=== PATIENT | female | born 1935 | race Caucasian/White ===

== ENCOUNTER → 2019-11-27 13:10 | Outpatient (BNVA) | payer MEDICARE, OTHER, SELFPAY | PROVIDERS: Family Provider Internal Medicine; PCP Internal Medicine; Visit Provider Anesthesiology | DX: G89.29 Other chronic pain (principal); M47.817 Spondylosis without myelopathy or radiculopathy, lumbosacral region; M47.816 Spondylosis without myelopathy or radiculopathy, lumbar region; M51.16 Intervertebral disc disorders with radiculopathy, lumbar region; M43.16 Spondylolisthesis, lumbar region; M96.1 Postlaminectomy syndrome, not elsewhere classified; M25.552 Pain in left hip; M25.551 Pain in right hip; M15.9 Polyosteoarthritis, unspecified; Z79.891 Long term (current) use of opiate analgesic | CPT/HCPCS: 99214 ==

== ENCOUNTER 2020-03-26 10:53 | Outpatient (CLI) | payer MEDICARE, OTHER, SELFPAY ==
[2020-03-26 11:00] VITALS: BP 133/71; PULSE 69; RESP 16; TEMP 36.8; O2SAT 97
[2020-03-26] MEDS: denosumab 60 mg SDV SUBCUT (11:14)
[2020-03-26 11:40] VITALS: BP 158/75; PULSE 62; RESP 16; TEMP 36.8; O2SAT 98
== END 2020-03-26 10:54 | disposition home or self-care (01) ==
LOC: RHEOACUTE 10:54
PROVIDERS: Family Provider Internal Medicine; PCP Internal Medicine; Visit Provider Internal Medicine Rheumatology
DX: M81.0 Age-related osteoporosis without current pathological fracture (principal)
CPT/HCPCS: 96372; J0897

== ENCOUNTER → 2020-04-14 09:54 | Outpatient (BNVA) | payer MEDICARE, OTHER, SELFPAY | PROVIDERS: Family Provider Internal Medicine; PCP Internal Medicine; Visit Provider Internal Medicine Cardiovascular Disease | DX: E78.5 Hyperlipidemia, unspecified (principal) | CPT/HCPCS: 80061; 80076 ==

== ENCOUNTER 2020-05-08 09:59 | Outpatient (CLI) | payer MEDICARE, OTHER, SELFPAY ==
--- NOTE | 2020-05-08 10:06 | USCV_ITS ---
Alannah Dodie Age: 84 Gender: F : 1935 Exam Date: 05/08/2020 10:55 Ordering Phys: Katya Munoz MD ([email or web address]) Technologist: Carmella Miramontes Exam Location: [facility] Indication: TR BP: 108 / 73 HR: 63 Rhythm: Other Technical Quality: Good MEASUREMENTS (Male / Female) Normal Values 2D ECHO LV Diastolic Diameter PLAX 4.0 cm 4.2 - 5.9 / 3.9 - 5.3 cm LV Systolic Diameter PLAX 2.2 cm LV Chamber Size 4.2 cm IVS Diastolic Thickness 1.1 cm 0.6 - 1.0 / 0.6 - 0.9 cm IVS Systolic Thickness 1.2 cm LVPW Diastolic Thickness 0.7 cm 0.6 - 1.0 / 0.6 - 0.9 cm LVPW Systolic Thickness 1.0 cm RV Chamber Size 3.3 cm LVOT Diameter 2.0 cm LV Ejection Fraction 2D Teich 77.7 % LV Ejection Fraction MOD 2C 68.7 % LV Ejection Fraction 2C AL 70.5 % LA Diameter 3.4 cm LA Width 3.7 cm LA Height 5.1 cm RA Width 2.6 cm RA Height 4.7 cm Aorta at Sinotubular Diameter 3.0 cm M-MODE LV Diastolic Diameter MM 5.5 cm 4.2 - 5.9 / 3.9 - 5.3 cm LV Systolic Diameter MM 3.5 cm LV Ejection Fraction MM Teich 66.9 % IVS Diastolic Thickness MM 0.9 cm 0.6 - 1.0 / 0.6 - 0.9 cm IVS Systolic Thickness MM 1.0 cm LVPW Diastolic Thickness MM 0.6 cm 0.6 - 1.0 / 0.6 - 0.9 cm LVPW Systolic Thickness MM 1.3 cm Aortic Annulus Diameter 3.3 cm LA Ao Ratio MM 1.0 MV E Point Septal Separation 0.3 cm DOPPLER AV Peak Velocity 105.0 cm/s LVOT Peak Velocity 94.0 cm/s AV Area Cont Eq vti 2.6 cm squared AV Area Cont Eq pk 2.8 cm squared MV Area PHT 5.0 cm squared Mitral E to A Ratio 2.1 MV E' Velocity 11.0 cm/s Mitral E to MV E' Ratio 12.3 Mitral E to LV E' Lateral Ratio 10.7 Mitral E to LV E' Septal Ratio 14.5 TR Peak Velocity 287.8 cm/s TR Peak Gradient 33.1 mmHg TR Mean Velocity 205.4 cm/s TR Mean Gradient 19.2 mmHg TR Velocity Time Integral 109.6 cm TV Peak E Velocity 59.0 cm/s Right Atrial Pressure 15.0 mmHg Pulmonary Artery Systolic Pressu 48.1 mmHg PV Peak Velocity 60.0 cm/s FINDINGS Left Ventricle Normal left ventricular size and systolic function, EF 65 %. No regional wall motion abnormalities. Grade III/IV diastolic dysfunction (restrictive filling pattern), severely elevated filling pressures. Right Ventricle The right ventricle is normal in size and function. Right Atrium Mildly increased right atrial size. Left Atrium Mildly increased left atrial size. The interatrial septum was found to be bulging to the right. Mitral Valve Thickened mitral valve. Mild-moderate mitral valve regurgitation. Multiple regurgitant jets Aortic Valve Thickened aortic valve.[id number] aortic valve regurgitation. Tricuspid Valve Possibly severe tricuspid regurgitation Pulmonic Valve No gross abnormalities noted. Moderately severe pulmonic valve regurgitation Pericardium Normal pericardium without effusion. Aorta Aortic root was found to be upper limit of normal size. CONCLUSIONS Normal left ventricular size and systolic function, EF 65 %. No regional wall motion abnormalities. Grade III/IV diastolic dysfunction (restrictive filling pattern), severely elevated filling pressures. Mild biatrial enlargement ThiThe interatrial septum was found to be bulging to the right. ckened mitral valve. Mild-moderate mitral valve regurgitation. Thickened aortic valve.[id number] aortic valve regurgitation. Possibly severe tricuspid regurgitation There is no pericardial effusion. Moderately severe pulmonic valve regurgitation There are no intracardiac masses. Interatrial septum, bulging to the right Estimated pulmonary artery peak systolic pressure of 41 mmHg Compared to the previous study from 10/29/2018, there may not be a significant change Dr Katya Munoz MD [facility] (Electronically Signed) Final Date: 08 May 2020 17:30 S
== END 2020-05-08 10:00 | disposition home or self-care (01) ==
LOC: US 10:00
PROVIDERS: Family Provider Internal Medicine; PCP Internal Medicine; Visit Provider Internal Medicine Cardiovascular Disease
DX: I08.2 Rheumatic disorders of both aortic and tricuspid valves (principal)
CPT/HCPCS: 93306

== ENCOUNTER → 2020-05-15 09:36 | Outpatient (BNVA) | payer MEDICARE, OTHER, SELFPAY | PROVIDERS: Family Provider Internal Medicine; PCP Internal Medicine; Visit Provider Anesthesiology | DX: G89.29 Other chronic pain (principal); M51.16 Intervertebral disc disorders with radiculopathy, lumbar region; M47.816 Spondylosis without myelopathy or radiculopathy, lumbar region; M43.16 Spondylolisthesis, lumbar region; M47.817 Spondylosis without myelopathy or radiculopathy, lumbosacral region; M54.9 Dorsalgia, unspecified; M96.1 Postlaminectomy syndrome, not elsewhere classified; M15.9 Polyosteoarthritis, unspecified; Z79.891 Long term (current) use of opiate analgesic | CPT/HCPCS: 99213; 99214 ==

== ENCOUNTER → 2020-07-14 10:02 | Outpatient (BNVA) | payer MEDICARE, OTHER, SELFPAY | PROVIDERS: Family Provider Internal Medicine; PCP Internal Medicine; Visit Provider Anesthesiology | DX: G89.29 Other chronic pain (principal); M51.16 Intervertebral disc disorders with radiculopathy, lumbar region; M47.816 Spondylosis without myelopathy or radiculopathy, lumbar region; M47.817 Spondylosis without myelopathy or radiculopathy, lumbosacral region; M54.9 Dorsalgia, unspecified; M96.1 Postlaminectomy syndrome, not elsewhere classified; Z79.891 Long term (current) use of opiate analgesic | CPT/HCPCS: 99213; 99214 ==

== ENCOUNTER → 2020-09-23 08:20 | Outpatient (BNVA) | payer MEDICARE, OTHER, SELFPAY | PROVIDERS: Family Provider Internal Medicine; PCP Internal Medicine; Visit Provider Anesthesiology | DX: G89.29 Other chronic pain (principal); M47.816 Spondylosis without myelopathy or radiculopathy, lumbar region; M43.16 Spondylolisthesis, lumbar region; M51.16 Intervertebral disc disorders with radiculopathy, lumbar region; M47.817 Spondylosis without myelopathy or radiculopathy, lumbosacral region; M54.9 Dorsalgia, unspecified; M96.1 Postlaminectomy syndrome, not elsewhere classified; Z79.891 Long term (current) use of opiate analgesic | CPT/HCPCS: 99213; 99214 ==

== ENCOUNTER 2020-11-26 14:28 | Outpatient (CLI) | payer MEDICARE, OTHER, SELFPAY ==
--- NOTE | 2020-11-26 14:36 | XR_ITS ---
WS: [id number] SCREENING DEXA SCAN [employer] CLINICAL INFORMATION: OSTEOPEROSIS COMPARISON: 018 FINDINGS: Left forearm bone mineral density 0.58 with a T score of -3.3 and a Z score of -0.26 Left femoral neck bone mineral density measures 0.788 g/cm2. This corresponds to a T score of -1.7 an d Z score of 0.8. Right femoral neck bone mineral density measures 0.801 g/cm2. This corresponds to a T score -1.6of an d Z score of 0.9. Mean femoral neck bone mineral density measures 0.794 g/cm2. This corresponds to a T score of -1.7 an d Z score of 0.9. XR/XR DEXA axial skeleton* 58610 IMPRESSION: Osteoporosis Patient's FRAX calculated 10 year probability for major osteoporotic fracture i s 32.3 % and osteoporotic hip fracture is 20.0%.
== END 2020-11-26 14:29 | disposition home or self-care (01) ==
LOC: RADWPI 14:30
PROVIDERS: PCP Internal Medicine; Visit Provider Internal Medicine
DX: M81.0 Age-related osteoporosis without current pathological fracture (principal)
CPT/HCPCS: 77080

== ENCOUNTER → 2020-12-01 09:22 | Outpatient (BNVA) | payer MEDICARE, OTHER, SELFPAY | PROVIDERS: PCP Internal Medicine; Visit Provider Nurse Practitioner | DX: G89.29 Other chronic pain (principal); M51.16 Intervertebral disc disorders with radiculopathy, lumbar region; M47.817 Spondylosis without myelopathy or radiculopathy, lumbosacral region; M54.9 Dorsalgia, unspecified; M15.9 Polyosteoarthritis, unspecified; M79.601 Pain in right arm; M79.602 Pain in left arm; Z79.891 Long term (current) use of opiate analgesic | CPT/HCPCS: 99213 ==

== ENCOUNTER → 2020-12-15 14:22 | Outpatient (BNVA) | payer MEDICARE, OTHER, SELFPAY | PROVIDERS: PCP Internal Medicine; Visit Provider Anesthesiology Pain Medicine | DX: G89.29 Other chronic pain (principal); M47.816 Spondylosis without myelopathy or radiculopathy, lumbar region; M47.817 Spondylosis without myelopathy or radiculopathy, lumbosacral region; M54.9 Dorsalgia, unspecified | CPT/HCPCS: 64493; 64494; 64495; J1030; J3490 ==

== ENCOUNTER → 2020-12-29 10:24 | Outpatient (BNVA) | payer MEDICARE, OTHER, SELFPAY | PROVIDERS: PCP Internal Medicine; Visit Provider Anesthesiology | DX: G89.29 Other chronic pain (principal); M47.816 Spondylosis without myelopathy or radiculopathy, lumbar region; M54.9 Dorsalgia, unspecified; M43.16 Spondylolisthesis, lumbar region; M51.16 Intervertebral disc disorders with radiculopathy, lumbar region; M96.1 Postlaminectomy syndrome, not elsewhere classified; M47.817 Spondylosis without myelopathy or radiculopathy, lumbosacral region; Z79.891 Long term (current) use of opiate analgesic; Z79.899 Other long term (current) drug therapy | CPT/HCPCS: 99214 ==

== ENCOUNTER → 2021-01-06 13:30 | Outpatient (BNVA) | payer MEDICARE, OTHER, SELFPAY | PROVIDERS: PCP Internal Medicine; Visit Provider Anesthesiology Pain Medicine | DX: G89.29 Other chronic pain (principal); M47.816 Spondylosis without myelopathy or radiculopathy, lumbar region; M54.9 Dorsalgia, unspecified | CPT/HCPCS: 64635; 64636; J1030 ==

== ENCOUNTER → 2021-01-18 10:10 | Outpatient (BNVA) | payer MEDICARE, OTHER, SELFPAY | PROVIDERS: PCP Internal Medicine; Visit Provider Anesthesiology Pain Medicine | DX: G89.29 Other chronic pain (principal); M54.9 Dorsalgia, unspecified; M54.42 Lumbago with sciatica, left side | CPT/HCPCS: 99213 ==

== ENCOUNTER → 2021-02-03 09:15 | Outpatient (BNVA) | payer MEDICARE, OTHER, SELFPAY | PROVIDERS: PCP Internal Medicine; Visit Provider Internal Medicine Cardiovascular Disease | DX: E78.5 Hyperlipidemia, unspecified (principal); R60.9 Edema, unspecified | CPT/HCPCS: 80048; 83880; 85025 ==

== ENCOUNTER → 2021-02-24 10:53 | Outpatient (BNVA) | payer MEDICARE, OTHER, SELFPAY | PROVIDERS: PCP Internal Medicine; Visit Provider Anesthesiology | DX: G89.29 Other chronic pain (principal); M51.16 Intervertebral disc disorders with radiculopathy, lumbar region; M54.9 Dorsalgia, unspecified; M47.816 Spondylosis without myelopathy or radiculopathy, lumbar region; M47.817 Spondylosis without myelopathy or radiculopathy, lumbosacral region; M43.16 Spondylolisthesis, lumbar region; M96.1 Postlaminectomy syndrome, not elsewhere classified; M15.9 Polyosteoarthritis, unspecified; Z79.899 Other long term (current) drug therapy; Z79.891 Long term (current) use of opiate analgesic | CPT/HCPCS: 99213; 99214 ==

== ENCOUNTER 2021-03-19 08:10 | Outpatient (CLI) | payer MEDICARE, OTHER, SELFPAY ==
[2021-03-19 08:17] VITALS: BMI 20.9
--- NOTE | 2021-03-19 08:28 | NMCV_ITS ---
NM elda perf SPECT r/s* [id number] Dodie Jaffe Age: 85 Gender: F : 1935 Exam Date: 03/19/2021 09:13 Ordering Phys: Katya Munoz MD ([email or web address]) Technologist: LO Pond Exam Location: [facility] Indications: CHEST PAIN STRESS TEST [facility] IMAGE PROTOCOL Rest/Stress 1 Lexiscan Day Radiopharmaceutical Dose (mCi) Administration Site Administered by Rest: Tc-99m 10.7 IV LO Pond Sestamibi Stress:Tc-99m 32.6 IV LO Tate Sestamibi Rest: 19-Mar-2021 60 Discovery 630 Stress: 19-Mar-2021 30 Discovery 630 0.4mg Lexiscan. Supine position only as patient was unable to lay prone. SPECT RESULTS Technical Quality: Good Raw Data Analysis: Normal Image Corrections: Patient motion artifact - motion correction applied to stress images. Summed Stress Score: 0 Summed Rest Score: 0 Summed Difference Score: 0 PERFUSION FINDINGS Uniform myocardial tracer uptake FUNCTIONAL RESULTS (calculated via Gated SPECT) Stress Image LV EF (%): 83 Stress EDV (mL):54 TID: 1.04 Stress ESV (mL):9 FUNCTIONAL FINDINGS: Segmental wall motion analysis revealing no gross wall motion abnormal arteries. IMPRESSIONS 1. Unremarkable myocardial perfusion imaging 2. LV ejection fraction estimated to be 83% 3. LV wall motion analysis revealing no gross wall motion abnormalities. 4. Normal LV volume. No significant coronary ischemia, based on the above findings Dr Katya Munoz MD [facility] (Electronically Signed) Final Date: 22 Mar 2021 11:49 S
--- NOTE | 2021-03-19 08:28 | ECG_ITS ---
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 Interpretive Statements NAME OF STUDY: LEXISCAN SESTAMIBI STRESS TEST INDICATION: Chest Pain, PROCEDURE: At the baseline, the EKG revealed normal sinus rhythm with right bundle branch block. Possible left atrial enlargement. Some nonspecific T wave changes.. The baseline blood pressure was 186/89 mm Hg with a heart rate of 74 beats/min. Lexiscan was infused over a period of 20 seconds. A total of 0.4 milligrams of Lexiscan was infused. The stress phase was continued for a total of 5 minutes. Heart rate at the end of the stress phase was 91 with a blood pressure 146/61. The EKG at the peak infusion revealed no significant changes .occasional PVCs were noted during the infusion. Sestamibi was injected 20 seconds after the Lexiscan infusion. Blood pressure at the end of the recovery phase was 166/68 with a heart rate of 93 per minute. CONCLUSION: 1. No significant EKG changes with the LexiScan infusion 2. No LexiScan induced chest pain or cardiac arrhythmia 3. Normal blood pressure and heart rate response 4. Sestamibi/sestamibi perfusion scan pending; see separate report. Electronically Signed On 03-25-2021 20:16:41 CDT by Katya Munoz M.D. [id number]
[2021-03-19 10:47] VITALS: BP 135/65; PULSE 94
--- NOTE | 2021-03-19 10:48 | PC.NURSE ---
pt had late reaction to lexiscan, approx 10 min into recovery she began to be vomit, shake and become even more weak than previous to test. let pt relax in bed and continue to recover. pt was shaking so much bp could not take and manual was completed to finish test. nm came and got pt and wrapped her in warm blankets.
[2021-03-19] MEDS: regadenoson 0.4 Mg/5 ml Syringe IVP (10:51)
== END 2021-03-19 08:11 | disposition home or self-care (01) ==
LOC: CDL 08:13
PROVIDERS: PCP Internal Medicine; Visit Provider Internal Medicine Cardiovascular Disease
DX: R07.9 Chest pain, unspecified (principal)
CPT/HCPCS: 78452; 93017; A9500; J2785

== ENCOUNTER → 2021-05-07 10:46 | Outpatient (BNVA) | payer MEDICARE, OTHER, SELFPAY | PROVIDERS: PCP Internal Medicine; Visit Provider Anesthesiology | DX: G89.29 Other chronic pain (principal); M51.16 Intervertebral disc disorders with radiculopathy, lumbar region; M47.816 Spondylosis without myelopathy or radiculopathy, lumbar region; M43.16 Spondylolisthesis, lumbar region; M47.817 Spondylosis without myelopathy or radiculopathy, lumbosacral region; M96.1 Postlaminectomy syndrome, not elsewhere classified; Z87.891 Personal history of nicotine dependence; Z79.891 Long term (current) use of opiate analgesic | CPT/HCPCS: 99213 ==

== ENCOUNTER 2021-07-06 15:03 | Outpatient (CLI) | payer MEDICARE, OTHER, SELFPAY ==
[2021-07-06 16:46] LABS: Albumin Level 4.3 g/dL (3.5-5.2); Calcium 9.1 mg/dL (8.5-10.5)
[2021-07-06 17:34] LABS: 25 Hydroxy Vitamin D 83 ng/mL (30-100)
== END 2021-07-06 15:04 | disposition home or self-care (01) ==
LOC: ONCMED 15:12
PROVIDERS: Family Medicine; PCP Internal Medicine; Referring Provider Internal Medicine; Visit Provider Internal Medicine
DX: E78.5 Hyperlipidemia, unspecified (principal); I10 Essential (primary) hypertension; I49.9 Cardiac arrhythmia, unspecified; M47.816 Spondylosis without myelopathy or radiculopathy, lumbar region; Z79.899 Other long term (current) drug therapy; Z79.891 Long term (current) use of opiate analgesic
CPT/HCPCS: 36415; 82040; 82306; 82310; 82565

== ENCOUNTER 2021-07-13 06:42 | Outpatient (CLI) | payer MEDICARE, OTHER, SELFPAY ==
[2021-07-13 15:32] VITALS: BP 154/79; PULSE 69; RESP 18; TEMP 36.1; O2SAT 99
[2021-07-13] MEDS: denosumab 60 mg SDV SUBCUT (15:49)
[2021-07-13 16:39] LABS: Anion Gap 13.4 (5-19); Blood Urea Nitrogen 13 mg/dL (8-23); Calcium 9.6 mg/dL (8.5-10.5); Carbon Dioxide 30 mmol/L (22-29); Chloride 97 mmol/L (98-107); Glucose 110 mg/dL (65-115); Osmolality Calculated 285 mOsm/kg (285-295); Potassium 3.4 mmol/L (3.5-5.1); Sodium 137 mmol/L (136-145)
[2021-07-13 16:57] VITALS: BP 154/78; PULSE 59; RESP 18; TEMP 36.4; O2SAT 96
== END 2021-07-13 06:43 | disposition home or self-care (01) ==
LOC: ONCMED 06:43
PROVIDERS: PCP Internal Medicine; Referring Provider Internal Medicine; Visit Provider Internal Medicine
DX: M81.0 Age-related osteoporosis without current pathological fracture (principal)
CPT/HCPCS: 36415; 80048; 96372; J0897

== ENCOUNTER → 2021-07-16 10:40 | Outpatient (BNVA) | payer MEDICARE, OTHER, SELFPAY | PROVIDERS: PCP Internal Medicine; Visit Provider Anesthesiology | DX: G89.29 Other chronic pain (principal); M96.1 Postlaminectomy syndrome, not elsewhere classified; M47.816 Spondylosis without myelopathy or radiculopathy, lumbar region; M43.16 Spondylolisthesis, lumbar region; M51.16 Intervertebral disc disorders with radiculopathy, lumbar region; M15.9 Polyosteoarthritis, unspecified; M47.817 Spondylosis without myelopathy or radiculopathy, lumbosacral region; Z79.891 Long term (current) use of opiate analgesic | CPT/HCPCS: 99213 ==

== ENCOUNTER → 2021-09-22 10:47 | Outpatient (BNVA) | payer MEDICARE, OTHER, SELFPAY | PROVIDERS: PCP Internal Medicine; Visit Provider Anesthesiology | DX: G89.29 Other chronic pain (principal); M47.816 Spondylosis without myelopathy or radiculopathy, lumbar region; M43.16 Spondylolisthesis, lumbar region; M51.16 Intervertebral disc disorders with radiculopathy, lumbar region; M47.817 Spondylosis without myelopathy or radiculopathy, lumbosacral region; M96.1 Postlaminectomy syndrome, not elsewhere classified; M15.9 Polyosteoarthritis, unspecified; Z79.891 Long term (current) use of opiate analgesic; Z79.899 Other long term (current) drug therapy; Z87.891 Personal history of nicotine dependence | CPT/HCPCS: 99214 ==

== ENCOUNTER → 2021-11-30 09:45 | Outpatient (BNVA) | payer MEDICARE, OTHER, SELFPAY | PROVIDERS: PCP Internal Medicine; Visit Provider Anesthesiology | DX: G89.29 Other chronic pain (principal); M54.50 Low back pain, unspecified; M96.1 Postlaminectomy syndrome, not elsewhere classified; Z79.891 Long term (current) use of opiate analgesic; Z87.891 Personal history of nicotine dependence | CPT/HCPCS: 99213 ==

== ENCOUNTER → 2021-12-30 10:44 | Outpatient (BNVA) | payer MEDICARE, OTHER, SELFPAY | PROVIDERS: PCP Internal Medicine; Visit Provider Internal Medicine Cardiovascular Disease | DX: I77.810 Thoracic aortic ectasia (principal); I10 Essential (primary) hypertension; I49.9 Cardiac arrhythmia, unspecified; E78.5 Hyperlipidemia, unspecified; I36.1 Nonrheumatic tricuspid (valve) insufficiency; Z87.891 Personal history of nicotine dependence | CPT/HCPCS: 99214 ==

== ENCOUNTER 2022-01-18 11:30 | Emergency (ER) | payer MEDICARE, OTHER, SELFPAY ==
[2022-01-18 11:44] VITALS: BP 207/78; PULSE 58; RESP 16; TEMP 36.7; O2SAT 94; BMI 20.5
[2022-01-18 12:15] VITALS: BP 207/68; PULSE 58; RESP 16; O2SAT 94
[2022-01-18 12:40] VITALS: BP 171/72; PULSE 60; RESP 18; O2SAT 96
--- NOTE | 2022-01-18 12:43 | ED_ITS ---
HPI - Weakness General: Chief complaint: Weakness Stated complaint: sent by [facility]; SOB/weakness/confusion; issues speakin Time Seen by Provider: 01/18/22 12:43 Source: patient Mode of arrival: ambulatory Limitations: no limitations History of Present Illness: 86-year-old female presents emergency room with complaints of dysarthria and elevated blood pressure. Dysarthria has been present for quite some time and noticeably worse 48 hours ago. Difficulty with word finding and completing words. She denies any difficulty with vision speech swallowing or gait and balance. She denies dysuria urgency frequency no chest pain no abdominal pain. Blood pressure has been elevated she has recently started on hydralazine by Dr. CORDON Complaint: generalized weakness Onset (ago): minute(s) Duration: constant Location: generalized Severity: mild Relieving factors: none Exacerbating factors: none Associated symptoms: Reports other; Denies chest pain, chills, confusion, melena, decreased appetite, diaphoresis, dysuria, easy bruising, fever(s), headache(s), myalgias, nausea, rash, short of breath, syncope or vomiting Review of Systems Const: Denies: fever(s), chills or diaphoresis Card: Denies: chest pain or syncope GI: Denies: nausea, vomiting or melena : Denies: dysuria Neuro: Denies: headache(s) or confusion Thiago/Lymph: Denies: easy bruising [facility] PFSH: Medical History (Updated 01/18/22 @ 15:52 by Anthony Balderas DO) Arthritis of facet joint of lumbar spine Benign essential HTN Chronic back pain greater than 3 months duration Displacement of lumbar disc with radiculopathy Dyslipidemia (high LDL; low HDL) Encounter for long-term opiate analgesic use Generalized osteoarthritis of multiple sites Long-term use of high-risk medication Opioid contract exists Post laminectomy syndrome Spondylolisthesis, lumbar region Spondylosis of lumbosacral spine without myelopathy Thoracic aortic aneurysm Tricuspid regurgitation Ventricular arrhythmia Surgical History History of lumbar laminectomy for spinal cord decompression 1967- [facility] [place] [place] S/P bladder repair S/P bunionectomy S/P hysterectomy S/P lumpectomy of breast S/P repair of vertebral fracture 08/2019- [facility] T12 Status post lumbar surgery 01/14/09- [facility]IFF Family History Father Congestive heart disease CAD (coronary artery disease) Sister No problems noted. Mother CAD (coronary artery disease) Diabetes Dementia Family/Other Diabetes Other Heart disease Hyperlipidemia Hypertension Denies family history of Clotting disorder Chronic kidney disease (CKD) Suicide Anesthesia complication Bleeding disorder Lung disease Cancer Stroke Social History Smoking and tobacco status: former smoker Second hand smoke exposure: No Alcohol intake: never History of recent travel: No Physical Exam Const: GENERAL APPEARANCE: cooperative and comfortable ORIENTATION/CONSCIOUSNESS: Yes awake, Yes oriented to person, Yes oriented to place and Yes oriented to time HENMT: COMMON NORMALS: normocephalic, atraumatic and hearing grossly normal bilaterally HEAD & SCALP: normocephalic and atraumatic Neck/C-Spine: COMMON NORMALS: no JVD Resp: COMMON NORMALS: normal respiratory effort, No retractions, No use of accessory muscles and clear to auscultation bilaterally AUSCULTATION: clear to auscultation bilaterally Cardio: COMMON NORMALS: no JVD, regular rate, regular rhythm and No murmurs present (Cardio) RATE: regular rate RHYTHM: regular rhythm GI: COMMON NORMALS: Soft to palpation and No hepatosplenomegaly present AUSCULTATION: Yes normoactive bowel sounds PALPATION: Yes Soft to palpation, No Tenderness to palpation present (GI), No Guarding due to palpation present ( GI) and Yes No hepatosplenomegaly present Extremity: COMMON NORMALS: normal to inspection, capillary refill normal, no clubbing, cyanosis or edema, no calf tenderness and no pedal edema Neuro: SENSORIUM/ORIENTATION: Yes oriented to person, Yes oriented to place and Yes oriented to time Skin: COMMON NORMALS: no rashes or lesions noted GENERAL SKIN EXAM: no rashes or lesions noted Course Vital Signs: Vital signs: Vital Signs Temperature 98.1 F 01/18/22 11:44 Pulse Rate 66 01/18/22 15:59 Respiratory Rate 18 01/18/22 15:59 Blood Pressure 157/66 01/18/22 15:59 Pulse Oximetry 96 01/18/22 15:59 MDM - Weakness Medical Decision Making Mild dysarthria with a stroke score of 1 CT head negative is really not with her blood also do she is already on pravastatin and high dose as well as starting clopidogrel Medical Records I reviewed the patient's medical records. Lab Data I reviewed the patient's lab results. : 01/18/22 13:14 01/18/22 14:35 Radiology Impressions Chest X-Ray 01/18/22 12:53 IMPRESSION: 1. Pulmonary hyperinflation that might indicate obstructive lung disease. No acute process. Head CT 01/18/22 13:02 IMPRESSION: 1. Significant progression of small vessel ischemic disease noted bilaterally since 2017. 2. No acute hemorrhage or infarct. Laboratory Results WBC 5.6 10^3/uL (4.0-10.0) 01/18/22 13:14 RBC 3.59 10^6/uL (4.1-5.3) L 01/18/22 13:14 Hgb 11.8 g/dL (11.5-15.3) 01/18/22 13:14 Hct 38.7 % (37.0-47.0) 01/18/22 13:14 MCV 107.8 fl (81-99) H 01/18/22 13:14 MCH 32.9 pg (28.0-34.0) 01/18/22 13:14 MCHC 30.5 g/dL (30.0-36.0) 01/18/22 13:14 RDW 16.8 % (12.1-15.1) H 01/18/22 13:14 Plt Count 151 10^3/cmm (130-400) 01/18/22 13:14 MPV 10.8 fL (7.4-10.4) H 01/18/22 13:14 Neut % (Auto) 59.0 % 01/18/22 13:14 Lymph % (Auto) 30.1 % 01/18/22 13:14 [place] % (Auto) 8.5 % 01/18/22 13:14 Eos % (Auto) 1.8 % 01/18/22 13:14 Baso % (Auto) 0.4 % 01/18/22 13:14 Neut # (Auto) 3.32 10^3/uL (1.8-7.7) 01/18/22 13:14 Lymph # (Auto) 1.7 10^3/uL (0.8-4.8) 01/18/22 13:14 [place] # (Auto) 0.5 10^3/uL (0.2-0.9) 01/18/22 13:14 Eos # (Auto) 0.1 10^3/uL (0.0-0.8) 01/18/22 13:14 Baso # (Auto) 0.0 10^3/uL (0.0-0.1) 01/18/22 13:14 Nucleated RBC % (auto) 0 % 01/18/22 13:14 Nucleated RBCs # 0.0 /100WBC 01/18/22 13:14 Sodium 135 mmol/L (136-145) L 01/18/22 14:35 Potassium 3.7 mmol/L (3.5-5.1) 01/18/22 14:35 Chloride 101 mmol/L (98-107) 01/18/22 14:35 Carbon Dioxide 25 mmol/L (22-29) 01/18/22 14:35 Anion Gap 12.7 (5-19) 01/18/22 14:35 BUN 15 mg/dL (8-23) 01/18/22 14:35 Creatinine 0.5 mg/dL (0.5-0.9) 01/18/22 14:35 GFR Calculation Not Reportable 01/18/22 14:35 Glucose 97 mg/dL (65-115) 01/18/22 14:35 Calculated Osmolality 281 mOsm/kg (285-295) L 01/18/22 14:35 Calcium 10.0 mg/dL (8.5-10.5) 01/18/22 14:35 Total Bilirubin 0.5 mg/dL (0.15-1.2) 01/18/22 14:35 AST 17 U/L (0-32) 01/18/22 14:35 ALT 12 U/L (0-33) 01/18/22 14:35 Alkaline Phosphatase 33 IU/L (35-105) L 01/18/22 14:35 Troponin T Baseline 23 ng/L (0-10) H 01/18/22 14:35 Total Protein 7.1 g/dL (6.6-8.7) 01/18/22 14:35 Albumin 3.9 g/dL (3.5-5.2) 01/18/22 14:35 Globulin 3.2 g/dL (1.3-4.6) 01/18/22 14:35 Urine Color Yellow (Yellow) 01/18/22 12:20 Urine Appearance Hazy (CLEAR) A 01/18/22 12:20 Urine pH 7 (5-7) 01/18/22 12:20 Ur Specific [place] 1.005 (1.005-1.030) 01/18/22 12:20 Urine Protein Neg (Negative) 01/18/22 12:20 Urine Glucose (UA) Norm (Normal) 01/18/22 12:20 Urine Ketones Negative (Negative) 01/18/22 12:20 Urine Blood Neg (Negative) 01/18/22 12:20 Urine Nitrate Negative (Negative) 01/18/22 12:20 Urine Bilirubin Neg (Negative) 01/18/22 12:20 Urine Urobilinogen Neg mg/dL (Negative) 01/18/22 12:20 Ur Leukocyte Esterase Negative (Negative) 01/18/22 12:20 Urine RBC Rare /hpf (0-2) 01/18/22 12:20 Urine WBC 5-10 /hpf (0-5) H 01/18/22 12:20 Ur Squamous Epith Cells Rare /hpf (0-5) 01/18/22 12:20 Amorphous Sediment Not Reportable 01/18/22 12:20 Urine Bacteria 4+ /hpf (NONE) H 01/18/22 12:20 Discharge Plan Discharge Patient Disposition: Home Clinical Impression: Acute CVA (cerebrovascular accident), Cystitis, HTN (hypertension) Condition: Stable Prescriptions: New Macrobid 100 mg capsule 100 mg PO BID 7 Days Qty: 14 0RF Rx Instructions: must administer with a meal/food amlodipine 2.5 mg tablet 2.5 mg PO DAILY Qty: 30 0RF No Action calcium carbonate-vitamin D3 [Calcium with Vitamin D] 600 mg(1,500mg) -400 unit tablet 1 tab PO .UNKNOWN OTC 0RF cholecalciferol (vitamin D3) 5,000 unit capsule 5,000 unit PO ONCE 0RF acetaminophen [Tylenol Arthritis Pain] 650 mg tablet extended release 650 mg PO Q8H 0RF gabapentin 800 mg tablet 800 mg PO TID 0RF polyethylene glycol 3350 [Miralax] 17 gram/dose powder 17 g PO DAILY PRN (Reason: constipation) 0RF nitroglycerin [Nitrostat] 0.4 mg tablet, sublingual 0.4 mg SUBLINGUAL Q5M PRN (Reason: chest pain) 30 Days Qty: 30 0RF magnesium L-lactate [Magtab] 84 mg tablet extended release 84 mg PO BID 30 Days Qty: 60 5RF carvedilol 25 mg tablet 25 mg PO BID 90 Days Qty: 180 3RF Rx Instructions: must administer with a meal/food pravastatin 80 mg tablet 80 mg PO DAILY Qty: 90 3RF morphine 15 mg tablet 15 mg PO TID PRN (Reason: pain) 30 Days Qty: 90 0RF Rx Instructions: fill on or after 01/05/22 duloxetine [Cymbalta] 20 mg capsule,delayed release(DR/EC) 20 mg PO DAILY 0RF valsartan 320 mg tablet 320 mg PO DAILY Qty: 90 3RF hydralazine 50 mg tablet 50 mg PO TID Qty: 270 3RF Discharge Orders: Discharge ED (Routine); Ordered 01/18/22 Ordered By: Anthony Balderas Referrals: Castro Hinson DO [Primary Care Provider] - Discharge Diet: Usual diet Discharge Activity: Resume usual activity Patient Instructions: Opioid Safety Activity Restrictions/Additional Instructions: Recheck blood pressure with your primary care doctor within the next week. Case management will call make arrangements for you to have an MRI of the brain. Coding Level of Care Code ED [employer]ant [employer] for [employer] Exam Comprehensive NIH stroke score NIHSS Level Of Consciousness - 1a: 0 Level Of Consciousness Questions - 1b: Both Correct Level Of Consciousness Commands - 1c: Both Correct Best Gaze - 2: Normal Visual Lobo - 3: No Visual Loss Facial Palsy - 4: Normal Motor Arm Right - 5: No Drift Motor Arm Left - 5: No Drift Motor Leg Right - 6: No Drift Motor Leg Left - 6: No Drift Limb Ataxia - 7: Absent Sensory - 8: Normal Best Language - 9: No Aphasia Dysarthia - 10: Mild/Moderate Dysarthia Extinction And Inattention - 11: 0 Score Total Score: 1
--- NOTE | 2022-01-18 12:53 | ECG_ITS ---
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 Measurements Intervals [place] Rate: 59 P: 76 IN: 247 QRS: -12 QRSD: 129 T: -24 QT: 403 QTc: 400 Interpretive Statements SINUS BRADYCARDIA WITH FIRST DEGREE AV BLOCK POSSIBLE RIGHT VENTRICULAR CONDUCTION DELAY [RSR (QR) IN V1/V2] MODERATE T-WAVE ABNORMALITY, CONSIDER ANTERIOR ISCHEMIA [-0.1+ mV T-WAVE IN V3/V4] Compared to ECG 05/13/2017 09:39:30 First degree AV block now present T-wave abnormality now present Possible ischemia now present Sinus tachycardia no longer present Ventricular premature complex(es) no longer present Right bundle-branch block no longer present Electronically Signed On 01-19-2022 16:58:48 CDT by Pritesh Ibanez M.D. [id number]
--- NOTE | 2022-01-18 12:53 | XR_ITS ---
WS: [id number] Exam: XR chest 1V portable [id number] Date/Time of Exam: 01/18/2022 12:59 PM Reason For Exam: dyspnea/cough Comparison 05/17/2014. The lungs are hyperinflated and clear. Heart size is within normal limits for portable technique. The mediastinal silhouette is unremarkable in appearance. No pleural effusion. Bony structures are intac t. 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 XR/XR chest 1V portable [id number] IMPRESSION: 1. Pulmonary hyperinflation that might indicate obstructive lung disease. No ac [place] process.
--- NOTE | 2022-01-18 13:02 | CT_ITS ---
WS: [id number] CT HEAD NONCONTRAST HISTORY: elevated BP, headache, dysarthria TECHNIQUE: Contiguous axial imaging performed through the brain in 2.5 mm imaging. Bone and soft tiss ue windows. Sagittal and coronal reformats reviewed. All CT scans at [facility] use at least one of these dose optimization techniques: automated exposure control; mA and/or kV adjustment per pa tient size (includes targeted exams where dose is matched to clinical indication); or iterative recon struction. DLP: 739.93 mGy.cm COMPARISON: 05/13/2017 No acute intracranial hemorrhage, midline shift or mass effect. Moderate atrophy and moderate to severe small vessel ischemic disease. Confluent ischemic disease wit h significant progression since 2017. No prior infarct. Ventricles: Normal size with no hydrocephalus. No inferior displacement of cerebellar tonsils. Paranasal sinuses: As visualized are clear. Mastoid air cells: Well pneumatized. Calvarium and scalp: Skull is intact with no soft tissue edema or swelling. Heavy calcification in the intracranial carotid arteries. CT/CT head wo con* [id number] IMPRESSION: 1. Significant progression of small vessel ischemic disease noted bilaterally since 2017. 2. No acute hemorrhage or infarct.
[2022-01-18 13:16] VITALS: BP 195/78; PULSE 62; RESP 18; O2SAT 96
[2022-01-18 13:24] LABS: Add Urine Culture? Yes; Add Urine Microscopic? YES; Bacteria Urine 4+ /hpf; Bilirubin Urine Neg (Negative); Blood Urine Neg (Negative); Glucose Urine UA Norm (Normal); Ketones Urine Negative (Negative); Leukocyte Esterase Urine Negative (Negative); Nitrate Urine Negative (Negative); Protein Urine Neg (Negative); RBC Urine RARE /hpf (0-2); Specific Gravity, Urine 1.005 (1.005-1.030); Squamous Epithelial Cell Urine RARE /hpf (0-5); Urine Appearance Hazy (CLEAR); Urine Color Yellow (Yellow); Urobilinogen Urine Neg (Negative); pH Urine 7 (5-7)
[2022-01-18 13:29] LABS: Basophils % 0.4 %; Eosinophils # 0.1 10^3/uL (0.0-0.8); Eosinophils % 1.8 %; Hematocrit 38.7 % (37.0-47.0); Hemoglobin 11.8 g/dL (11.5-15.3); Lymphocytes # 1.7 10^3/uL (0.8-4.8); Lymphocytes % 30.1 %; Mean Corpuscular HGB Conc 30.5 g/dL (30.0-36.0); Mean Corpuscular Hemoglobin 32.9 pg (28.0-34.0); Mean Corpuscular Volume 107.8 fl (81-99); Mean Platelet Volume 10.8 fL (7.4-10.4); Monocytes # 0.5 10^3/uL (0.2-0.9); Monocytes % 8.5 %; Neutrophils # 3.32 10^3/uL (1.8-7.7); Nucleated Red Blood Cells % 0 %; Platelet Count 151 10^3/cmm (130-400); Red Blood Count 3.59 10^6/uL (4.1-5.3); Red Cell Distribution Width 16.8 % (12.1-15.1); White Blood Count 5.6 10^3/uL (4.0-10.0)
[2022-01-18 14:01] VITALS: BP 188/72; PULSE 58; RESP 16; O2SAT 94
[2022-01-18 15:13] LABS: Alanine Aminotransferase 12 U/L (0-33); Albumin Level 3.9 g/dL (3.5-5.2); Alkaline Phosphatase 33 IU/L (35-105); Anion Gap 12.7 (5-19); Aspartate Amino Transferase 17 U/L (0-32); Blood Urea Nitrogen 15 mg/dL (8-23); Carbon Dioxide 25 mmol/L (22-29); Chloride 101 mmol/L (98-107); Creatinine Clr Calc Pharmacy 43.5033; Globulin 3.2 g/dL (1.3-4.6); Glucose 97 mg/dL (65-115); Osmolality Calculated 281 mOsm/kg (285-295); Potassium 3.7 mmol/L (3.5-5.1); Sodium 135 mmol/L (136-145); Total Bilirubin 0.5 mg/dL (0.15-1.2); Total Protein 7.1 g/dL (6.6-8.7)
[2022-01-18 15:18] LABS: Troponin(5th) Baseline 23 ng/L (0-10)
[2022-01-18 15:59] VITALS: BP 157/66; PULSE 66; RESP 18; O2SAT 96
--- NOTE | 2022-01-18 17:06 | PC.NURSE ---
Plavix 75mg po daily [facility] per Sherrie
--- NOTE | 2022-01-18 18:53 | ECG_ITS ---
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 Measurements Intervals [place] Rate: 63 P: 84 [place]: 264 QRS: 34 QRSD: 133 T: -29 QT: 392 QTc: 402 Interpretive Statements SINUS RHYTHM WITH FIRST DEGREE AV BLOCK INTRAVENTRICULAR CONDUCTION DELAY [130+ ms QRS DURATION] SEPTAL MYOCARDIAL INFARCTION , OF INDETERMINATE AGE [40+ ms Q WAVE IN V1/V2] Compared to ECG 05/13/2017 09:39:30 First degree AV block now present Intraventricular conduction delay now present Myocardial infarct finding now present Sinus tachycardia no longer present Ventricular premature complex(es) no longer present Right bundle-branch block no longer present Electronically Signed On 01-19-2022 17:13:39 CDT by Pritesh Ibanez M.D. [id number]
--- NOTE | 2022-01-21 10:39 | DCPLANNER ---
Addendum entered by Zeinab Bethea 04/11/22 07:20: Patient had a follow up appointment scheduled for an MRI - patient did not attend appointment. Addendum entered by Zeinab Bethea 03/19/22 08:32: Patient has an MRI scheduled for Friday, April 01, 2022 at 3:15. Centralized scheduling will call patient with appointment information. Original Note: ticket manager had message to schedule an outpatient MRI for patient. ticket manager called patient, to confirm that patient wanted the test, and to confirm who patient sees for primary care. Patient stated that she did want the test, and that her primary care physician is Dr. Hinson. ticket manager faxed signed order to centralized scheduling, who will call patient with the appointment information
== END 2022-01-18 16:01 | disposition home or self-care (01) ==
PROVIDERS: Emergency Provider Family Medicine; PCP Internal Medicine
DX: I63.9 Cerebral infarction, unspecified (principal); I10 Essential (primary) hypertension; N30.90 Cystitis, unspecified without hematuria; R29.701 NIHSS score 1; R47.1 Dysarthria and anarthria; E78.5 Hyperlipidemia, unspecified; Z87.891 Personal history of nicotine dependence
CPT/HCPCS: 70450; 71045; 80053; 81001; 84484; 85025; 87077; 87086; 87186; 93005; 99284

== ENCOUNTER 2022-01-26 10:19 | Inpatient (IN) | payer MEDICARE, OTHER, SELFPAY ==
[2022-01-26] VITALS (9 sets, daily range): BP systolic 108–160; BP diastolic 63–80; PULSE 65–88; RESP 14–20; TEMP 36.3–37; O2SAT 91–95; BMI 20.2; BMI 20.9
--- NOTE | 2022-01-26 10:30 | CT_ITS ---
WS: [id number] CT HEAD TECHNIQUE: Noncontrast CT of the head obtained from the skullbase to the vertex. CLINICAL INFORMATION: Symptoms of Acute Stroke COMPARISON: CT January 18, 2022 DLP: 771.[address] scans at [facility] use at least one of these dose optimization techniques: automated e xposure control; mA and/or kV adjustment per patient size (includes targeted exams where dose is matc hed to clinical indication); or iterative reconstruction. FINDINGS: No evidence of intracranial hemorrhage or mass effect. Ventricular system and basal cisterns are carballo nt. Moderate small vessel changes with moderate parenchymal volume loss. Tiny chronic lacunar infarct RIGHT caudate unchanged. No extra-axial fluid collections. No evidence of mass or mass effect. Intra cranial vascular calcification. Paranasal sinuses and mastoid air cells are well aerated. .Normal visualized soft tissues. CT/CT head wo con* [id number] IMPRESSION: 1. No evidence of intracranial hemorrhage or mass effect. 2. Moderate small vessel changes with moderate parenchymal volume loss. 3. No acute intracranial findings and no changes compared to January 18, 2022.
--- NOTE | 2022-01-26 10:30 | ECG_ITS ---
[facility] Test Date: 2022-01-26 Pat Name: Dodie Jaffe Department: Room: Gender: Female Women Nurse: : 1935 Requested By: Taz Pillai Order Number: [id number] Delmi MD: Hailey Stinson M.D. Measurements Intervals [place] Rate: 65 P: 83 MT: 254 QRS: 16 QRSD: 145 T: -10 QT: 414 QTc: 431 Interpretive Statements SINUS RHYTHM WITH FIRST DEGREE AV BLOCK INTRAVENTRICULAR CONDUCTION DELAY [130+ ms QRS DURATION] Compared to ECG 01/18/2022 13:15:46 Myocardial infarct finding no longer present Electronically Signed On 01-26-2022 18:25:13 CDT by Hailey Stinson M.D. [id number]
--- NOTE | 2022-01-26 10:39 | XR_ITS ---
WS: [id number] XR chest 1V portable [id number] REASON FOR EXAM: ams FINDINGS: Mild tortuosity the thoracic aorta without aneurysmal dilatation. Mild cardiomegaly. Compared to the previous examination of 01/18/2022, interval development of subtle reticular interstit ial and patchy groundglass lung opacities in the right lower lung zone. No other significant interval change or new finding. XR/XR chest 1V portable [id number] IMPRESSION: Interval development of lung opacities in the right lower lung zone which may i ndicate subacute pneumonitis.
--- NOTE | 2022-01-26 10:40 | ED_ITS ---
HPI - Altered Mental Status General: Chief Complaint: Weakness Stated Complaint: possible stroke Time Seen by Provider: 01/26/22 10:30 History of Present Illness: 86-year-old female presents with altered mental status. Daughter notes increasing confusion over the past week. States she had diffuse weakness but denies any focal area of weakness numbness tingling. Denies any vision or hearing change. Denies any focal pain except for chronic bilateral hip pain and is not any different today. Denies any recent head trauma. Review of Systems Narrative: - CONSTITUTIONAL: Denies weight loss, fever and chills. - HEENT: Denies changes in vision and hearing. - RESPIRATORY: Denies SOB and cough. - CV: Denies palpitations and CP. - GI: Denies abdominal pain, nausea, vomiting and diarrhea. - : Denies dysuria and urinary frequency. - MSK: Denies myalgia and joint pain. - SKIN: Denies rash and pruritus. - NEUROLOGICAL: As above - PSYCHIATRIC: Denies suicidal ideation [facility] PFSH: Medical History (Updated 01/26/22 @ 00:01 by ) Arthritis of facet joint of lumbar spine Benign essential HTN Chronic back pain greater than 3 months duration Displacement of lumbar disc with radiculopathy Dyslipidemia (high LDL; low HDL) Encounter for long-term opiate analgesic use Generalized osteoarthritis of multiple sites Long-term use of high-risk medication Opioid contract exists Post laminectomy syndrome Spondylolisthesis, lumbar region Spondylosis of lumbosacral spine without myelopathy Thoracic aortic aneurysm Tricuspid regurgitation Ventricular arrhythmia Surgical History History of lumbar laminectomy for spinal cord decompression 1967- [place] S/P bladder repair S/P bunionectomy S/P hysterectomy S/P lumpectomy of breast S/P repair of vertebral fracture 08/2019- [facility] [place] [id number] Status post lumbar surgery 01/14/09- dr [place] [facility] Family History Father Congestive heart disease CAD (coronary artery disease) Sister No problems noted. Mother CAD (coronary artery disease) Diabetes Dementia Family/Other Diabetes Other Heart disease Hyperlipidemia Hypertension Denies family history of Clotting disorder Chronic kidney disease (CKD) Suicide Anesthesia complication Bleeding disorder Lung disease Cancer Stroke Social History Smoking and tobacco status: former smoker Second hand smoke exposure: No Alcohol intake: never History of recent travel: No Physical Exam Narrative: - GENERAL: Alert and oriented x 3. No acute distress. Well- nourished. - EYES: EOMI. Anicteric. - HENT: Atraumatic, no C-spine tenderness. Moist mucous membranes. No scleral icterus. No cervical lymphadenopathy. - LUNGS: Clear to auscultation bilaterally. No accessory muscle use. Equal lung sounds bilaterally. No respiratory distress. - CARDIOVASCULAR: Regular rate and rhythm. No murmur. No JVD. - ABDOMEN: Soft, non-tender and non-distended. Negative CVA tenderness bilaterally, no rebound or guarding, negative Ruelas sign. No palpable masses. - EXTREMITIES: No edema. Non-tender. - SKIN: No rashes or lesions. Warm. - NEUROLOGIC: No meningismus or focal neurological deficits. CN II-XII grossly intact. - PSYCHIATRIC: Cooperative. Appropriate mood and affect. Course Vital Signs: Vital signs: Vital Signs Temperature 97.3 F L 01/26/22 10:34 Pulse Rate 73 01/26/22 13:42 Respiratory Rate 16 01/26/22 13:42 Blood Pressure 121/66 01/26/22 13:42 Pulse Oximetry 92 01/26/22 13:42 MDM - Altered Mental Status Medical Decision Making 86-year-old presents due to generalized weakness. Nonfocal neurologic exam.. CT scan does not reveal intracranial hemorrhage or acute abnormality. However there is concern of some dehydration. In addition patient has right lower lung infiltrates. Upon review of previous record there was some concern for dysarthria last week. It is possible she had an aspiration event. However she is hemodynamic stable afebrile nontoxic-appearing. White count is within normal. Started on Unasyn. Remainder of lab work and imaging reviewed. Discussed with hospitalist and they agreed patient would benefit from admission. Patient admitted in stable condition. Further evaluation management per hospitalist team. Lab Data : 01/26/22 11:15 01/26/22 12:[address] 01/26/22 10:30 IMPRESSION: 1. No evidence of intracranial hemorrhage or mass effect. 2. Moderate small vessel changes with moderate parenchymal volume loss. 3. No acute intracranial findings and no changes compared to January 18, 2022. Chest X-Ray 01/26/22 10:39 IMPRESSION: Interval development of lung opacities in the right lower lung zone which may indicate subacute pneumonitis. Laboratory Results WBC 5.6 10^3/uL (4.0-10.0) 01/26/22 11:15 RBC 3.35 10^6/uL (4.1-5.3) L 01/26/22 11:15 Hgb 10.8 g/dL (11.5-15.3) L 01/26/22 11:15 Hct 33.7 % (37.0-47.0) L 01/26/22 11:15 MCV 100.6 fl (81-99) H 01/26/22 11:15 MCH 32.2 pg (28.0-34.0) 01/26/22 11:15 MCHC 32.0 g/dL (30.0-36.0) 01/26/22 11:15 RDW 14.9 % (12.1-15.1) 01/26/22 11:15 Plt Count 149 10^3/cmm (130-400) 01/26/22 11:15 MPV 10.8 fL (7.4-10.4) H 01/26/22 11:15 Neut % (Auto) 76.1 % 01/26/22 11:15 Lymph % (Auto) 16.0 % 01/26/22 11:15 [place] % (Auto) 6.8 % 01/26/22 11:15 Eos % (Auto) 0.4 % 01/26/22 11:15 Baso % (Auto) 0.5 % 01/26/22 11:15 Neut # (Auto) 4.22 10^3/uL (1.8-7.7) 01/26/22 11:15 Lymph # (Auto) 0.9 10^3/uL (0.8-4.8) 01/26/22 11:15 [place] # (Auto) 0.4 10^3/uL (0.2-0.9) 01/26/22 11:15 Eos # (Auto) 0.0 10^3/uL (0.0-0.8) 01/26/22 11:15 Baso # (Auto) 0.0 10^3/uL (0.0-0.1) 01/26/22 11:15 Nucleated RBC % (auto) 0 % 01/26/22 11:15 Nucleated RBCs # 0.0 /100WBC 01/26/22 11:15 PT 15.00 SECONDS (12.1-14.9) H 01/26/22 12:09 INR 1.15 (0.8-1.2) 01/26/22 12:09 APTT 36.1 SECONDS (23.9-36.7) 01/26/22 12:09 Sodium 132 mmol/L (136-145) L 01/26/22 12:09 Potassium 3.2 mmol/L (3.5-5.1) L 01/26/22 12:09 Chloride 98 mmol/L (98-107) 01/26/22 12:09 Carbon Dioxide 23 mmol/L (22-29) 01/26/22 12:09 Anion Gap 14.2 (5-19) 01/26/22 12:09 BUN 18 mg/dL (8-23) 01/26/22 12:09 Creatinine 0.8 mg/dL (0.5-0.9) 01/26/22 12:09 GFR Calculation Not Reportable 01/26/22 12:09 Glucose 127 mg/dL (65-115) H 01/26/22 12:09 POC Glucose 128 mg/dL (70-110) H 01/26/22 12:19 Calculated Osmolality 277 mOsm/kg (285-295) L 01/26/22 12:09 Lactate 1.1 mmol/L (0.5-2.2) 01/26/22 13:33 Calcium 8.8 mg/dL (8.5-10.5) 01/26/22 12:09 Total Bilirubin 0.4 mg/dL (0.15-1.2) 01/26/22 12:09 AST 19 U/L (0-32) 01/26/22 12:09 ALT 13 U/L (0-33) 01/26/22 12:09 Alkaline Phosphatase 32 IU/L (35-105) L 01/26/22 12:09 Total Protein 6.4 g/dL (6.6-8.7) L 01/26/22 12:09 Albumin 3.9 g/dL (3.5-5.2) 01/26/22 12:09 Globulin 2.5 g/dL (1.3-4.6) 01/26/22 12:09 Urine Color Dark yellow (Yellow) 01/26/22 Unknown Urine Appearance Clear (CLEAR) 01/26/22 Unknown Urine pH 5 (5-7) 01/26/22 Unknown Ur Specific [place] 1.015 (1.005-1.030) 01/26/22 Unknown Urine Protein Trace (Negative) 01/26/22 Unknown Urine Glucose (UA) Norm (Normal) 01/26/22 Unknown Urine Ketones 2+ (Negative) H 01/26/22 Unknown Urine Blood Neg (Negative) 01/26/22 Unknown Urine Nitrate Negative (Negative) 01/26/22 Unknown Urine Bilirubin Neg (Negative) 01/26/22 Unknown Urine Urobilinogen Neg mg/dL (Negative) 01/26/22 Unknown Ur Leukocyte Esterase Negative (Negative) 01/26/22 Unknown Urine RBC Rare /hpf (0-2) 01/26/22 Unknown Urine WBC Rare /hpf (0-5) 01/26/22 Unknown Ur Squamous Epith Cells 5-10 /hpf (0-5) H 01/26/22 Unknown Amorphous Sediment Not Reportable 01/26/22 Unknown Urine Bacteria Trace /hpf (NONE) 01/26/22 Unknown Urine Mucus 2+ /hpf 01/26/22 Unknown Urine Opiates Screen Positive ng/mL (Negative) H 01/26/22 Unknown Ur Barbiturates Screen Negative ng/mL (Negative) 01/26/22 Unknown Ur Phencyclidine Scrn Negative ng/mL (Negative) 01/26/22 Unknown Ur Amphetamines Screen Negative ng/mL (Negative) 01/26/22 Unknown U Benzodiazepines Scrn Negative ng/mL (Negative) 01/26/22 Unknown Urine Cocaine Screen Negative ng/mL (Negative) 01/26/22 Unknown U Marijuana (THC) Screen Negative ng/mL (Negative) 01/26/22 Unknown EKG Data EKG 1: Other EKG comments: Sinus rhythm with first-degree AV block, incomplete right bundle branch block, no sign of acute ischemia or other acute abnormality. Discharge Plan Discharge Condition: Stable Prescriptions: No Action cholecalciferol (vitamin D3) 5,000 unit capsule 5,000 unit PO QAM 0RF acetaminophen [Tylenol Arthritis Pain] 650 mg tablet extended release 1,300 mg PO BID 0RF gabapentin 800 mg tablet 800 mg PO TID 0RF polyethylene glycol 3350 [Miralax] 17 gram/dose powder 17 g PO DAILY PRN (Reason: constipation) 0RF nitroglycerin [Nitrostat] 0.4 mg tablet, sublingual 0.4 mg SUBLINGUAL Q5M PRN (Reason: chest pain) 30 Days Qty: 30 0RF carvedilol 25 mg tablet 25 mg PO BID 90 Days Qty: 180 3RF Rx Instructions: must administer with a meal/food duloxetine [Cymbalta] 20 mg capsule,delayed release(DR/EC) 20 mg PO QAM 0RF hydralazine 50 mg tablet 50 mg PO TID Qty: 270 3RF oxybutynin chloride 10 mg tablet extended release 24hr 10 mg PO DAILY 0RF clopidogrel 75 mg tablet 75 mg PO QAM 0RF magnesium 250 mg Tablet 250 mg PO BEDTIME 0RF nitrofurantoin monohyd/m-cryst 100 mg capsule 100 mg PO BID 0RF Prolia 60 mg/mL Syringe See Rx Instructions .ROUTE .COMPLEX 0RF Rx Instructions: EVERY SIX MONTHS Calcium 600 + D(3) 1 tab PO BID 0RF amlodipine 2.5 mg tablet 2.5 mg PO QAM 0RF pravastatin 80 mg tablet 80 mg PO QAM 0RF valsartan 320 mg tablet 320 mg PO QAM 0RF morphine 15 mg tablet 15 mg PO BID 0RF Rx Instructions: fill on or after 01/05/22 Referrals: Castro Hinson DO [Primary Care Provider] - Coding Level of Care Code ED Pharmacy Operations Manager for [facility] Dottie
[2022-01-26 11:31] LABS: Basophils % 0.5 %; Eosinophils % 0.4 %; Hematocrit 33.7 % (37.0-47.0); Hemoglobin 10.8 g/dL (11.5-15.3); Lymphocytes # 0.9 10^3/uL (0.8-4.8); Mean Corpuscular Hemoglobin 32.2 pg (28.0-34.0); Mean Corpuscular Volume 100.6 fl (81-99); Mean Platelet Volume 10.8 fL (7.4-10.4); Monocytes # 0.4 10^3/uL (0.2-0.9); Monocytes % 6.8 %; Neutrophils # 4.22 10^3/uL (1.8-7.7); Neutrophils % 76.1 %; Nucleated Red Blood Cells % 0 %; Platelet Count 149 10^3/cmm (130-400); Red Blood Count 3.35 10^6/uL (4.1-5.3); Red Cell Distribution Width 14.9 % (12.1-15.1); White Blood Count 5.6 10^3/uL (4.0-10.0)
--- NOTE | 2022-01-26 11:42 | PC.PHAR ---
PTS FAMILY STATES THE PT TAKES CARE OF HER OWN MEDICATIONS-PT VERIFIED MEDICATIONS-PT STATES SHE DOESNT THINK SHE IS TAKING RAMIPRIL 10MG RX FILLED 12/13/21 45D/S-NOTES ARE MADE IN PHARMACY COMMENTS
[2022-01-26 12:22] LABS: Glucose Point of Care 128 mg/dL (70-110)
[2022-01-26 12:37] LABS: INR 1.15 (0.8-1.2)
[2022-01-26 12:38] LABS: Partial Thromboplastin Time 36.1 SECONDS (23.9-36.7)
[2022-01-26 12:44] LABS: Alanine Aminotransferase 13 U/L (0-33); Albumin Level 3.9 g/dL (3.5-5.2); Alkaline Phosphatase 32 IU/L (35-105); Anion Gap 14.2 (5-19); Aspartate Amino Transferase 19 U/L (0-32); Blood Urea Nitrogen 18 mg/dL (8-23); Calcium 8.8 mg/dL (8.5-10.5); Carbon Dioxide 23 mmol/L (22-29); Chloride 98 mmol/L (98-107); Globulin 2.5 g/dL (1.3-4.6); Glucose 127 mg/dL (65-115); Osmolality Calculated 277 mOsm/kg (285-295); Potassium 3.2 mmol/L (3.5-5.1); Sodium 132 mmol/L (136-145); Total Bilirubin 0.4 mg/dL (0.15-1.2); Total Protein 6.4 g/dL (6.6-8.7)
[2022-01-26 12:54] LABS: Amphetamines Screen Urine Negative (Negative); Barbiturates Screen Urine Negative (Negative); Benzodiazepines Screen Urine Negative (Negative); Cocaine Screen Urine Negative (Negative); Opiate Screen Urine Positive (Negative); PCP Screen Urine Negative (Negative); THC Screen Urine Negative (Negative)
[2022-01-26 13:05] LABS: Add Urine Microscopic? YES; Bilirubin Urine Neg (Negative); Blood Urine Neg (Negative); Glucose Urine UA Norm (Normal); Ketones Urine 2+ (Negative); Leukocyte Esterase Urine Negative (Negative); Nitrate Urine Negative (Negative); Protein Urine Trace (Negative); RBC Urine RARE /hpf (0-2); Specific Gravity, Urine 1.015 (1.005-1.030); Urine Appearance Clear (CLEAR); Urine Color Dark Yellow (Yellow); Urobilinogen Urine Neg (Negative); WBC Urine RARE /hpf (0-5); pH Urine 5 (5-7)
[2022-01-26 13:06] LABS: Add Urine Culture? No; Bacteria Urine TRACE /hpf; Mucus Urine 2+ /hpf
[2022-01-26] MEDS: ampicillin-sulbactam 3 GM in sodium chloride 0.9% (plus) 50 ML IV (13:34)
[2022-01-26] MEDS: potassium chloride ER 20 mEq Tablet PO (13:34)
[2022-01-26] MEDS: sodium chloride 0.9% 1,000 ML 999 ML IV (13:35)
[2022-01-26 14:11] LABS: Lactate (Lactic Acid level) 1.1 mmol/L (0.5-2.2)
--- NOTE | 2022-01-26 16:09 | USCV_ITS ---
Dodie Jaffe Age: 86 Gender: F : 1935 Exam Date: 01/26/2022 16:28 Ordering Phys: Daphne Brizuela MD Technologist: BYRON Exam Location: [facility] [place] Indication: sob, mora. No hx cardiac intervention per patient. BP: / HR: 88 Rhythm: Sinus Technical Quality: Adequate MEASUREMENTS (Male / Female) Normal Values 2D ECHO LV Diastolic Diameter PLAX 4.1 cm 4.2 - 5.9 / 3.9 - 5.3 cm LV Systolic Diameter PLAX 2.3 cm IVS Diastolic Thickness 1.3 cm 0.6 - 1.0 / 0.6 - 0.9 cm IVS Systolic Thickness 1.9 cm LVPW Diastolic Thickness 1.1 cm 0.6 - 1.0 / 0.6 - 0.9 cm LVPW Systolic Thickness 1.9 cm LVOT Diameter 2.0 cm LV Ejection Fraction 2D Teich 75.2 % LV Ejection Fraction MOD 2C 83.9 % LV Ejection Fraction 2C AL 84.8 % LA Diameter 3.9 cm LA Width 4.3 cm LA Height 5.4 cm RA Width 3.4 cm RA Height 5.3 cm Aorta at Sinotubular Diameter 3.4 cm M-MODE Aortic Annulus Diameter 3.1 cm LA Ao Ratio MM 1.2 MV E Point Septal Separation 0.1 cm DOPPLER AV Peak Velocity 101.0 cm/s LVOT Peak Velocity 93.0 cm/s AV Area Cont Eq vti 3.1 cm squared AV Area Cont Eq pk 2.8 cm squared MV Area PHT 5.0 cm squared Mitral E to A Ratio 1.4 MV E' Velocity 55.5 cm/s Mitral E to MV E' Ratio 8.7 Mitral E to LV E' Lateral Ratio 7.6 Mitral E to LV E' Septal Ratio 10.2 TR Peak Velocity 316.0 cm/s TR Peak Gradient 39.9 mmHg TV Peak E Velocity 81.0 cm/s PV Peak Velocity 104.0 cm/s FINDINGS Left Ventricle Normal left ventricular size, systolic function and wall thickness, with no regional wall motion abnormalities. Grade I/IV diastolic dysfunction (abnormal relaxation filling pattern), normal to mildly elevated filling pressures. Left ventricular ejection fraction is estimated at 65 %. Right Ventricle Normal right ventricular size and systolic function. Right Atrium Mildly increased right atrial size. Left Atrium Moderately increased left atrial size. Increaed LA pressure Mitral Valve Structurally normal mitral valve. Moderate mitral valve regurgitation. No mitral valve stenosis. Aortic Valve Structurally normal trileaflet aortic valve. No aortic valve stenosis. [id number] aortic valve regurgitation. Tricuspid Valve Structurally normal tricuspid valve. Moderate tricuspid valve regurgitation. Pulmonic Valve Pulmonic valve not well visualized. [id number] pulmonary valve regurgitation. Pericardium Normal pericardium without effusion. Aorta Normal ascending aorta dimension. CONCLUSIONS Normal left ventricular size, systolic function and wall thickness, with no regional wall motion abnormalities. Grade I/IV diastolic dysfunction (abnormal relaxation filling pattern), normal to mildly elevated filling pressures. Left ventricular ejection fraction is estimated at 65 %. Mildly increased right atrial size. Moderately increased left atrial size. Increaed LA pressure. Structurally normal mitral valve. Moderate mitral valve regurgitation. No mitral valve stenosis. Structurally normal trileaflet aortic valve. No aortic valve stenosis. Zfhy-im-ymhohzgi aortic valve regurgitation. Dr. Pritesh Ibanez MD (Electronically Signed) Final Date: 26 January 2022 17:38 S
--- NOTE | 2022-01-26 16:10 | P.HP_ITS ---
Providers/Chief Complaint Admitting Physician: Daphne Brizuela MD Primary Care Provider: Castro Hinson DO Chief Complaint: high bp/weakness/lethargic/SOB/chills History of Present Illness Dodie Jaffe is a 86 year old female who presented to the emergency room with chief complaint of weakness. She had also been having elevated blood pressures. She lives with her who is 96 though has children nearby. She has had somewhat steady decline over the last few weeks. Towards the end of December family noted that she was having episodes of slurred speech. She had been having high blood pressures then as well. It was difficult to ascertain exactly when she started to have speech difficulties but in the 48 hours prior to that ED visit it had worsened. She denied any focal areas of weakness at that time though did complain of general weakness. In reviewing her history it was discovered that her blood pressure issues have been going on at least since October or so. See medication section of this note for details of medication changes related to antihypertensive treatment this year. She checks her blood pressure every morning. She reports compliance with her medications. Despite increasing doses of antihypertensives her blood pressures have remained eleva lalit. She does take pain medication regularly in the form of extended release morphine twice a day. She denies missing doses. She had followed with Dr. Gonzales previously. Indicated in last note when she saw him that she was trying to wean herself off of pain medicines but she denied missing doses today. Also denied taking excessive amount of doses. She had gone to see her primary care provider this morning, Dr. Hinson, and she was unable to stand and was instructed to come to the emergency room for evaluation due to the degree of her weakness. In the last couple of days she has had chills and one episode of fever. She has had a headache. She complained of some ear discomfort primarily on the left but denied any runny nose or sore throat. No chest congestion. She has not had any diarrhea. She had one episode of vomiting on the same day that she presented to the emergency room on January 18 with dysarthria. She frequently is nauseated and it usually worse in the supine position. She has been unable to stand for the last couple of days. Describes palpitations and occasional irregular heartbeat. Also reports having a very difficult time catching her breath today also noted by the family. She has had some edema in her ankles since resuming amlodipine. This was a known side effect of amlodipine for her in the past. She reports decreased oral intake, incontinence but no dysuria. Describes dysphagia for solids more so than liquids that has also been progressively worsening. Overall she describes the shortness of breath and the being extremely tired as the more significant abnormalities. Work-up in the emergency room showed low potassium and sodium. Also identified with some findings of pneumonitis on chest x-ray. Patient was given a dose of Unasyn in the emergency room for coverage of presumed aspiration. In addition she received some IV fluids and potassium replacement. Given her persistent weakness hospitalist were called for admission. History was obtained from patient and her son who was present in the room. I also spoke with Dr. Munoz. He indicated that patient often has some memory issues when seen in clinic and he is wondered at times if she is taking her medications at home as prescribed. Review of Systems Const: Reports: fever(s), chills, change in appetite, fatigue, malaise and change in sleep pattern; Denies: change in weight Eyes: Denies: change in vision, blurry vision or blind spots ENMT: Reports: dry mouth and ear or mastoid pain (Yesterday, left); Denies: throat pain or nasal congestion Card: Reports: palpitations, irregular heart rhythm, swelling of feet/ankles, lightheadedness and dyspnea on exertion; Denies: chest pain or orthopnea Resp: Reports: dyspnea, productive cough and non-productive cough GI: Reports: nausea and vomiting (1 time on 01/18); Denies: abdominal pain, diarrhea (No diarrhea in a month), constipation, hematochezia or melena : Reports: urinary incontinence; Denies: difficulty voiding or hematuria Musc: Reports: back pain (Not new), extremity pain (Particularly hip and thigh areas not new), muscle weakness and other; Denies: muscle cramps Skin/Breast: Denies: rash or pruritus Neuro: Reports: headache(s), numbness in extremities (Not new), weakness in extremities (More pronounced than it had been but General rather than focal) and difficulty walking Psych: Denies: anxiety or depression Endo: Reports: cold intolerance Thiago/Lymph: Reports: easy bruising; Denies: easy bleeding Medications/Allergies Home Medications Medication Instructions Recorded Confirmed Last Taken Type acetaminophen 650 mg 1,300 mg PO BID 10/28/19 01/26/22 01/26/22 07:00 History tablet,extended release (Tylenol Arthritis Pain) cholecalciferol (vitamin D3) 125 5,000 unit PO QAM 10/28/19 01/26/22 01/26/22 07:00 History mcg (5,000 unit) capsule gabapentin 800 mg tablet 800 mg PO TID tab 12/30/20 01/26/22 01/26/22 07:00 History nitroglycerin 0.4 mg sublingual 0.4 mg SUBLINGUAL Q5M PRN 30 Days 12/30/20 01/26/22 Unknown Rx tablet (Nitrostat) #30 tab polyethylene glycol 3350 17 17 g PO DAILY PRN 12/30/20 01/26/22 Unknown History gram/dose oral powder (Miralax) carvedilol 25 mg tablet 25 mg PO BID 90 Days #180 tab 12/30/21 01/26/22 01/26/22 07:00 Rx duloxetine 20 mg capsule,delayed 20 mg PO QAM cap 12/30/21 01/26/22 01/26/22 07:00 History release (Cymbalta) hydralazine 50 mg tablet 50 mg PO TID #270 tab 01/13/22 01/26/22 01/26/22 07:00 Rx Calcium 600 + D(3) 1 tab PO BID 01/26/22 01/26/22 01/26/22 07:00 History amlodipine 2.5 mg tablet 2.5 mg PO QAM 01/26/22 01/26/22 01/26/22 07:00 History clopidogrel 75 mg tablet 75 mg PO QAM 01/26/22 01/26/22 01/26/22 07:00 History denosumab 60 mg/mL subcutaneous See Rx Instructions .ROUTE .COMPLEX 01/26/22 01/26/22 Unknown History syringe (Prolia) magnesium 250 mg tablet 250 mg PO BEDTIME 01/26/22 01/26/22 01/25/22 History morphine 15 mg immediate release 15 mg PO BID 01/26/22 01/26/22 01/26/22 07:00 History tablet oxybutynin chloride 10 mg 10 mg PO DAILY 01/26/22 01/26/22 Unknown History tablet,extended release 24 hr pravastatin 80 mg tablet 80 mg PO QAM 01/26/22 01/26/22 01/26/22 07:00 History valsartan 320 mg tablet 320 mg PO QAM 01/26/22 01/26/22 01/26/22 07:00 History Allergies Allergy/AdvReac Type Severity Reaction Status Date / Time amlodipine AdvReac BLE edema Verified 01/26/22 10:34 aspirin AdvReac ABDOMINAL Verified 01/26/22 10:34 PAIN iodine AdvReac UNKNOWN Verified 01/26/22 10:34 metoprolol [From Toprol XL] AdvReac UNKNOWN Verified 01/26/22 10:34 tramadol AdvReac UNKNOWN Verified 01/26/22 10:34 Additional Medication Information I personally reviewed home medications from bottles brought into the emergency room. Only medications missing from bag were miralax, nitroglycerin, prolia. Macrobid prescribed recently has been finished and was removed from the list. I returned patients narcotic bottle with same number of pills to the son in the room in presence of patient. Over the last few months, patient has had the following medication changes: Ramipril started at 10mg daily 10/30/2021 Ramipril was increased to 20 mg daily 12/13/2021 Ramipril stopped 12/21/2021 Valsartan started at 160mg daily 12/21/2021 Coreg increased from 6.25mg bid to 12.5 mg bid 12/21/2021 Coreg increased from 12.5mg to 25mg bid on 12/30/2021 Valsartan increased to 320mg daily on 01/13/2022 Hydralazine added at 50mg tib on 01/14/2022 Amlodipine added at 2.5mg daily on 01/18/2022 In 2020 had been on Amlodipine > stopped due to BLE edema; Lasix and Ch lorthalidone were tried and stopped; Coreg was started and increased from 3.125mg to 6.25 mg bid PFSH Acute PFSH: Medical History (Updated 01/26/22 @ 21:03 by Daphne Brizuela MD) Arthritis of facet joint of lumbar spine Benign essential HTN Chronic back pain greater than 3 months duration COVID-19 vaccine administered Moderna x 2 doses Displacement of lumbar disc with radiculopathy Dyslipidemia (high LDL; low HDL) Generalized osteoarthritis of multiple sites Irritable bowel syndrome Long-term use of high-risk medication Extended release morphine Opioid contract exists Osteoporosis Overactive bladder Post laminectomy syndrome Spondylolisthesis, lumbar region Spondylosis of lumbosacral spine without myelopathy Stroke determined by clinical assessment 01/18/22 dysarthria Thoracic aortic aneurysm Tricuspid regurgitation Ventricular arrhythmia Surgical History (Updated 01/26/22 @ 16:21 by Daphne Brizuela MD) [place] of lumbar [place] cord decomp[place] [place] S/P bunionectomy S/P hysterectomy S/P lumpectomy of breast S/P repair of vertebral fracture 08/2019- Dr[facility] [place] [id number] Status post lumbar surgery 01/14/09- Dr Borja [facility] Family History Father Congestive heart disease CAD (coronary artery disease) Sister No problems noted. Mother CAD (coronary artery disease) Diabetes Dementia Family/Other Diabetes Other Heart disease Hyperlipidemia Hypertension Denies family history of Clotting disorder Chronic kidney disease (CKD) Suicide Anesthesia complication Bleeding disorder Lung disease Cancer Stroke Social History (Updated 01/26/22 @ 16:22 by Daphne Brizuela MD) Smoking and tobacco status: former smoker Second hand smoke exposure: No Alcohol intake: never Household members: spouse Marital status details: Spouse 10 years older than her Vitals/I&O/Wt Last Vital Signs Temp 97.3 F L 01/26/22 10:34 Pulse 73 01/26/22 13:42 Resp 16 01/26/22 13:42 BP 121/66 01/26/22 13:42 Pulse Ox 92 01/26/22 13:42 Weight last 48 hrs Weight 51.71 kg Physical Exam 2 Narrative: Constitutional: Awake but sleepy, chronically ill-appearing HEENT: Normocephalic, extraocular movements are intact, pupils are reactive, nasopharynx is clear, oropharynx with extremely dry mucous membranes, dry lips Neck: Supple Respiratory: Clear to auscultation bilaterally, no rales or wheezes noted, no accessory muscle use or tachypnea Cardiovascular: Regular rate and rhythm, 2/6 murmur, no JVD, 1+ pulses peripherally Abdomen: Soft, nontender, nondistended, positive bowel sounds Extremities: No pitting edema, no calf tenderness, some loss of muscle mass noted, musculature is not grossly tender though she is sore in places Skin: Dry, scattered bruising, scattered hyperpigmentation Neuro: Speech clear to my ears, face is symmetric, handgrip is equal, foot pumps are equal bilaterally, weaker more proximally than distally, no abnormal movements Psych: Normal affect at times flat affect other times, oriented to person, place and current situation although not able to provide some details Data : 01/26/22 11:15 01/26/22 12:09 Other Labs: Radiology Impressions Head CT 01/26/22 10:30 IMPRESSION: 1. No evidence of intracranial hemorrhage or mass effect. 2. Moderate small vessel changes with moderate parenchymal volume loss. 3. No acute intracranial findings and no changes compared to January 18, 2022. Chest X-Ray 01/26/22 10:39 IMPRESSION: Interval development of lung opacities in the right lower lung zone which may indicate subacute pneumonitis. Laboratory Results WBC 5.6 10^3/uL (4.0-10.0) 01/26/22 11:15 RBC 3.35 10^6/uL (4.1-5.3) L 01/26/22 11:15 Hgb 10.8 g/dL (11.5-15.3) L 01/26/22 11:15 Hct 33.7 % (37.0-47.0) L 01/26/22 11:15 MCV 100.6 fl (81-99) H 01/26/22 11:15 MCH 32.2 pg (28.0-34.0) 01/26/22 11:15 MCHC 32.0 g/dL (30.0-36.0) 01/26/22 11:15 RDW 14.9 % (12.1-15.1) 01/26/22 11:15 Plt Count 149 10^3/cmm (130-400) 01/26/22 11:15 MPV 10.8 fL (7.4-10.4) H 01/26/22 11:15 Neut % (Auto) 76.1 % 01/26/22 11:15 Lymph % (Auto) 16.0 % 01/26/22 11:15 [place] % (Auto) 6.8 % 01/26/22 11:15 Eos % (Auto) 0.4 % 01/26/22 11:15 Baso % (Auto) 0.5 % 01/26/22 11:15 Neut # (Auto) 4.22 10^3/uL (1.8-7.7) 01/26/22 11:15 Lymph # (Auto) 0.9 10^3/uL (0.8-4.8) 01/26/22 11:15 [place] # (Auto) 0.4 10^3/uL (0.2-0.9) 01/26/22 11:15 Eos # (Auto) 0.0 10^3/uL (0.0-0.8) 01/26/22 11:15 Baso # (Auto) 0.0 10^3/uL (0.0-0.1) 01/26/22 11:15 Nucleated RBC % (auto) 0 % 01/26/22 11:15 Nucleated RBCs # 0.0 /100WBC 01/26/22 11:15 PT 15.00 SECONDS (12.1-14.9) H 01/26/22 12:09 INR 1.15 (0.8-1.2) 01/26/22 12:09 APTT 36.1 SECONDS (23.9-36.7) 01/26/22 12:09 Sodium 132 mmol/L (136-145) L 01/26/22 12:09 Potassium 3.2 mmol/L (3.5-5.1) L 01/26/22 12:09 Chloride 98 mmol/L (98-107) 01/26/22 12:09 Carbon Dioxide 23 mmol/L (22-29) 01/26/22 12:09 Anion Gap 14.2 (5-19) 01/26/22 12:09 BUN 18 mg/dL (8-23) 01/26/22 12:09 Creatinine 0.8 mg/dL (0.5-0.9) 01/26/22 12:09 GFR Calculation Not Reportable 01/26/22 12:09 Glucose 127 mg/dL (65-115) H 01/26/22 12:09 POC Glucose 128 mg/dL (70-110) H 01/26/22 12:19 Calculated Osmolality 277 mOsm/kg (285-295) L 01/26/22 12:09 Lactate 1.1 mmol/L (0.5-2.2) 01/26/22 13:33 Calcium 8.8 mg/dL (8.5-10.5) 01/26/22 12:09 Total Bilirubin 0.4 mg/dL (0.15-1.2) 01/26/22 12:09 AST 19 U/L (0-32) 01/26/22 12:09 ALT 13 U/L (0-33) 01/26/22 12:09 Alkaline Phosphatase 32 IU/L (35-105) L 01/26/22 12:09 Total Protein 6.4 g/dL (6.6-8.7) L 01/26/22 12:09 Albumin 3.9 g/dL (3.5-5.2) 01/26/22 12:09 Globulin 2.5 g/dL (1.3-4.6) 01/26/22 12:09 Urine Color Dark yellow (Yellow) 01/26/22 Unknown Urine Appearance Clear (CLEAR) 01/26/22 Unknown Urine pH 5 (5-7) 01/26/22 Unknown Ur Specific [place] 1.015 (1.005-1.030) 01/26/22 Unknown Urine Protein Trace (Negative) 01/26/22 Unknown Urine Glucose (UA) Norm (Normal) 01/26/22 Unknown Urine Ketones 2+ (Negative) H 01/26/22 Unknown Urine Blood Neg (Negative) 01/26/22 Unknown Urine Nitrate Negative (Negative) 01/26/22 Unknown Urine Bilirubin Neg (Negative) 01/26/22 Unknown Urine Urobilinogen Neg mg/dL (Negative) 01/26/22 Unknown Ur Leukocyte Esterase Negative (Negative) 01/26/22 Unknown Urine RBC Rare /hpf (0-2) 01/26/22 Unknown Urine WBC Rare /hpf (0-5) 01/26/22 Unknown Ur Squamous Epith Cells 5-10 /hpf (0-5) H 01/26/22 Unknown Amorphous Sediment Not Reportable 01/26/22 Unknown Urine Bacteria Trace /hpf (NONE) 01/26/22 Unknown Urine Mucus 2+ /hpf 01/26/22 Unknown Urine Opiates Screen Positive ng/mL (Negative) H 01/26/22 Unknown Ur Barbiturates Screen Negative ng/mL (Negative) 01/26/22 Unknown Ur Phencyclidine Scrn Negative ng/mL (Negative) 01/26/22 Unknown Ur Amphetamines Screen Negative ng/mL (Negative) 01/26/22 Unknown U Benzodiazepines Scrn Negative ng/mL (Negative) 01/26/22 Unknown Urine Cocaine Screen Negative ng/mL (Negative) 01/26/22 Unknown U Marijuana (THC) Screen Negative ng/mL (Negative) 01/26/22 Unknown Micro: Microbiology 01/26/22 13:40 Blood Culture - Preliminary Blood SPECIMEN COLLECTED 01/26/22 13:33 Blood Culture - Preliminary Blood SPECIMEN COLLECTED A&P Assessment and plan (1) Generalized weakness: Multifactorial and recently progressive. Currently appears dehydrated with low sodium and low potassium both of which can contribute. Polypharmacy seems likely as does potential normalization of what family and patient described as chronically elevated high blood pressures of late. There is some question of consistency in taking medications and it could be that if she is sometimes taking them all and other times not taking them, that the degree of weakness is fluctuating with some of her medications. Laboratory studies do show anemia compared to prior values though she does not describe any gross bleeding beyond some bruises. Ischemia both cerebrovascular and cardiovascular could potentially cause this as could abnormalities of the thyroid. She has known chronic back pain and has had multiple prior back surgeries and describes chronic difficulty in her hips related to her back. But she can usually get around and that is what has changed lately. She does have some chronic urinary incontinence but it is not worse lately. Denies any bowel incontinence. Has chronic radiculopathy/post-laminectomy syndrome. No recent injury to back or change in pain/chronic issues beyond general weakness. Myositis, infection, medication side effect, among others also considered Status: Acute (2) Dehydration: Present on admission, moderate, based on clinical exam and labs Described decreased oral intake lately Status: Acute (3) Accelerated hypertension: Historically with essential hypertension that for years was well controlled on amlodipine by history from patient/son. This had to be stopped due to lower extremity edema last year. Since then, multiple medications tried without sustained improvement. Since start of the year, has had continued issues with blood pressures 200s/100s. Machine for home checks has been evaluated at cardiology clinic and found to be consistent with clinic machines. Patient checks BP every morning and records it. Pain clinic notes describe her mentioning trying to wean herself off of morphine and had too many pills left in bottle at last pill count check in November. Uncontrolled pain might be a contributing factor. Inconsistency in medication administration also high in differential. Does have vascular issues to keep in mind as well. See medication section above for currently prescribed medications. Status: Acute (4) Difficulty swallowing solids: With frequent reflux described, occassional difficulty with liquids On Prolia chronically Not previously evaluated Status: Acute (5) Normocytic anemia: Drop in hemoglobin since last copmparable values, not report of bleeding, though concern for GI blood losses given GI symptoms described Status: Acute (6) History of recent stroke: ED visit for dysarthria 01/18/2022, felt to be stroke symptoms, presented out of window. Was weak then, but also generally and not focally. NIH score one. Was started on plavix, amlodipine added for blood pressure. Also at that ED visit,had pyuria and treated with 7 days of macrobid which recently completed. Status: Acute (7) Polypharmacy: Multiple new medications over the last few months, primarily for blood pressure control. On 12 prescribed medications and takes 5 over the counters. Status: Acute (8) Aortic root dilatation: 3.6x4.0 last time measured via MRA chest, upper limits of normal range on last echo Status: Chronic (9) Dyslipidemia (high LDL; low HDL): Chronically on statin Status: Chronic (10) Tricuspid regurgitation: Last echo 04/2020 possibly severe Status: Chronic Qualifiers: Cardiac valve disease etiology: nonrheumatic Qualified Code(s): I36.1 - Nonrheumatic tricuspid (valve) insufficiency (11) Ventricular arrhythmia: Details unknown, chroncially on beta blockade Status: Chronic (12) Osteoporosis: Chronically on Prolia, last dose more than 6 months ago, was due last week Status: Chronic Qualifiers: Osteoporosis type: age-related Presence of current pathological fracture: without current pathological fracture Qualified Code(s): M81.0 - Age- related osteoporosis without current pathological fracture (13) Overactive bladder: Chronically on oxybutynin Status: Chronic (14) Chronic back pain greater than 3 months duration: Follows at pain clinic, though was with Dr Blair and is in process of getting new pain clinic provider Had 3 back surgeries Status: Chronic (15) Opioid contract exists: On Morphine extended release bid, sometimes does not take it but most days she does Status: Chronic (16) Advanced age: Status: Chronic Plan Inpatient admission IV fluids at low rate Replace potassium Check magnesium Check CK and TSH Already back enzymes and EKGs Continue Plavix Continue carvedilol at 12.5 mg twice daily dosing Continue ARB at half prior dose Monitor blood pressures here in the hospital with this regimen Stop amlodipine as patient is known to develop lower extremity edema with this Hold hydralazine Check antihistone antibodies Pending CK level, continue statin therapy Repeat H&H in the morning Hemoccult of stool PPI Head of bed elevation Speech evaluation Will need swallow study either inpatient or outpatient depending on clinical course Received a dose of Unasyn empirically in the emergency room, for now I am not continuing For pneumonitis steroids would be ideal but with potential GI issues will hold off on systemic and instead order inhaled steroids currently Oxygen therapy as needed Check BNP, echo May need diuresis, her I's and O's closely Recheck urinalysis Oxybutynin Stool softeners Will continue home morphine extended release twice daily with some options for breakthrough pain if needed Continue home duloxetine which I think is a pain adjunct from discussion Lovenox presently for DVT prophylaxis that we will need to watch for any signs o f bleeding or further drop in H&H Further plans pending results of above Currently anticipate discharge home with outpatient follow-up to PCP and cardiology Patient and son indicated that they hope that hospital providers will communicate with outpatient providers regarding plans of care particularly any changes May benefit from home health particularly for medication management upon discharge plus or minus therapy depending on clinical course Findings, concerns and plans were discussed with patient and her son and both were given an opportunity to ask questions Had discussion regarding CODE STATUS with patient in the presence of her son and she indicated that she did not wish to be artificially resuscitated, ALLOW NATURAL order has been entered as per that discussion Attestations Medical Necessity Statement*: Anticipated stay greater than two midnights in a patient with both are gradual in a more rapid clinical decline. She has had widely variable blood pressures, multiple medication changes and attempts at overall management in the outpatient setting without sustained improvement. Today she has clinical findings on exam of dehydration along with some laboratory abnormalities and abnormality on chest x-ray plus swallowing difficulties in addition to severe weakness. She is p resently receiving IV fluids, further evaluation as described and close monitoring. She will need therapy evaluation and speech evaluation. Given significant deviation from baseline, even at her advanced age, at risk of continued clinical decline resulting in injury or without intervention. Has thus far managed to live at home with her who is 89 but in the last couple of weeks this has not been feasible. Other issues and plans as described above. Coding Level of Care Code Acute Citizen Participation Specialist for Chg Fwd Diagnoses Generalized weakness R53.1 Accelerated hypertension I10 Dyslipidemia (high LDL; low HDL) E78.5 Chronic back pain greater than 3 months duration M54.9; G89.29 Opioid contract exists Z79.891 Tricuspid regurgitation I36.1 Cardiac valve disease etiology: nonrheumatic Polypharmacy Z79.899 Difficulty swallowing solids R13.10 Normocytic anemia D64.9 Ventricular arrhythmia I49.9 Dehydration E86.0 Osteoporosis M81.0 Osteoporosis type: age-related Presence of current pathological fracture: without current pathological fracture Overactive bladder N32.81 Advanced age R54 History of recent stroke Z86.73 Aortic root dilatation I77.810
[2022-01-26 17:21] LABS: ABG PCO2 27.9 mmHg (35-45); ABG PH Result 7.52 (7.35-7.45); Arterial Blood Gas Hematocrit 31.5 % (37-47); Base Excess ABG 0.4 mmol/L (-2.0-2.0); Blood Gas Operator Identificat AMH; Blood Gas Sample Site Brachial, right; Blood Gas Sample Type Arterial; HCO3 ABG 22.6 mmol/L (22-26); Oxygen Device ROOM AIR; PO2 ABG 55.1 mmHg (80.0-100.0)
--- NOTE | 2022-01-26 17:43 | ECG_ITS ---
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 Measurements Intervals [place] Rate: 86 P: 85 WV: 259 QRS: 5 QRSD: 135 T: -27 QT: 349 QTc: 418 Interpretive Statements SINUS RHYTHM WITH FIRST DEGREE AV BLOCK WITH OCCASIONAL SUPRAVENTRICULAR PREMATURE COMPLEXES INTRAVENTRICULAR CONDUCTION DELAY [130+ ms QRS DURATION] SEPTAL MYOCARDIAL INFARCTION , OF INDETERMINATE AGE [40+ ms Q WAVE IN V1/V2] Compared to ECG 01/26/2022 10:37:46 Myocardial infarct finding now present Electronically Signed On 01-26-2022 18:29:05 CDT by Hailey Stinson M.D. [id number]
[2022-01-26 17:56] LABS: NT Pro B Type Natriuretic Pept 4494 pg/mL (0-450); Procalcitonin 0.35 ng/mL (0-0.5); Thyroid Stimulating Hormone 0.52 uIU/mL (0.27-4.20)
[2022-01-26 18:07] LABS: Creatine Phosphokinase 100 U/L (26-192); Iron 20 ug/dL (37-145); Percent Saturation 9.4 % (20-50); Total Iron Binding Capacity 211 mcg/dl; Unsaturated Iron Binding 191 ug/dL (112-347)
[2022-01-26] MEDS: docusate sodium 100 mg Capsule PO (18:49)
[2022-01-26] MEDS: carvedilol 12.5 mg Tablet PO (18:49)
[2022-01-26] MEDS: enoxaparin 30 mg/0.3 mL Syringe SUBCUT (18:49)
[2022-01-26] MEDS: calcium carb-vit d 600mg/400unit 1 Tablet 1 EACH PO (18:49)
[2022-01-26] MEDS: oxybutynin 5 mg Tablet PO (18:49)
[2022-01-26] MEDS: magnesium oxide 400 mg tablet PO (18:49)
[2022-01-26] MEDS: pantoprazole DR 40 mg Tablet PO (18:49)
[2022-01-26] MEDS: sodium chlor 0.9% + KCl 20 mEq 20 MEQ/1,000 ML BAG 100 MEQ IV (18:50)
[2022-01-26] MEDS: morphine IR 15 mg Tablet PO (18:52)
[2022-01-26 20:01] LABS: Troponin(5th) Baseline 25 ng/L (0-10)
[2022-01-26] MEDS: gabapentin 400 mg Capsule 800 MG PO (20:30)
[2022-01-26] MEDS: atorvastatin 40 mg Tablet 80 MG PO (20:30)
--- NOTE | 2022-01-26 21:43 | ECG_ITS ---
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 Measurements Intervals [place] Rate: 69 P: 76 NV: 243 QRS: 20 QRSD: 143 T: -10 QT: 398 QTc: 428 Interpretive Statements SINUS RHYTHM WITH SINUS ARRHYTHMIA WITH FIRST DEGREE AV BLOCK POSSIBLE LEFT ATRIAL ENLARGEMENT [-0.1mV P-WAVE IN V1/V2] INTRAVENTRICULAR CONDUCTION DELAY [130+ ms QRS DURATION] Compared to ECG 01/26/2022 17:19:01 Myocardial infarct finding no longer present Electronically Signed On 01-27-2022 16:14:27 CDT by Pritesh Ibanez M.D. [id number]
[2022-01-26 22:11] LABS: Troponin 5 2HR 25.37 ng/L (0-10)
[2022-01-26 22:17] LABS: Troponin 5 2HR Delta 0.37 ABS# (0-10)
[2022-01-27] VITALS (15 sets, daily range): BP systolic 108–155; BP diastolic 61–82; PULSE 63–88; RESP 12–20; TEMP 36.5–36.8; O2SAT 90–95
[2022-01-27 01:56] LABS: Basophils % 0.4 %; Eosinophils % 0.6 %; Hemoglobin 8.9 g/dL (11.5-15.3); Lymphocytes % 20.4 %; Mean Corpuscular HGB Conc 31.8 g/dL (30.0-36.0); Mean Corpuscular Hemoglobin 32.1 pg (28.0-34.0); Mean Corpuscular Volume 101.1 fl (81-99); Mean Platelet Volume 10.8 fL (7.4-10.4); Monocytes # 0.4 10^3/uL (0.2-0.9); Monocytes % 8.9 %; Neutrophils # 3.44 10^3/uL (1.8-7.7); Neutrophils % 69.3 %; Nucleated Red Blood Cells % 0 %; Platelet Count 121 10^3/cmm (130-400); Red Blood Count 2.77 10^6/uL (4.1-5.3); Red Cell Distribution Width 12.7 % (12.1-15.1)
[2022-01-27 02:12] LABS: Anion Gap 13.4 (5-19); Blood Urea Nitrogen 16 mg/dL (8-23); Carbon Dioxide 21 mmol/L (22-29); Chloride 102 mmol/L (98-107); Glucose 100 mg/dL (65-115); Osmolality Calculated 277 mOsm/kg (285-295); Phosphorus 2.7 mg/dL (2.5-4.5); Potassium 3.4 mmol/L (3.5-5.1); Sodium 133 mmol/L (136-145)
[2022-01-27 02:16] LABS: Troponin 5 6HR 24.33 ng/L (0-10)
[2022-01-27 02:22] LABS: Troponin 5 6HR Delta -0.67 ng/L (0-12)
[2022-01-27] MEDS: clopidogrel 75 mg Tablet PO (05:40)
[2022-01-27] MEDS: duloxetine 20 mg Capsule PO (05:40)
[2022-01-27] MEDS: morphine IR 15 mg Tablet PO ×2 (05:40→18:12)
[2022-01-27] MEDS: gabapentin 400 mg Capsule 800 MG PO ×3 (08:00→20:38)
[2022-01-27] MEDS: calcium carb-vit d 600mg/400unit 1 Tablet 1 EACH PO ×2 (08:00→18:08)
[2022-01-27] MEDS: magnesium oxide 400 mg tablet PO ×2 (08:00→18:08)
[2022-01-27] MEDS: losartan 50 mg Tablet PO (08:00)
[2022-01-27] MEDS: pantoprazole DR 40 mg Tablet PO ×2 (08:01→18:08)
--- NOTE | 2022-01-27 08:03 | FL_ITS ---
WS: [id number] FL barium swallow modifd [id number] REASON FOR EXAM: Oropharyngeal dysphagia FLUOROSCOPY TIME: 4min [id number] # OF SPOT FILMS: 2 FINDINGS: The swallowing of barium of varying of varying consistencies was evaluated with video fluoroscopy and spot films. Detailed analysis of the swallowing will be rendered by the speech therapy department. No aspiration was identified. There are intermittent episodes of tertiary contractions. No significant retrograde reflux. The gastroesophageal junction is located below the diaphragm however there is barium and an air-fluid level in a portion of the stomach fundus located more superiorly. FL/FL barium swallow modifd 74826 IMPRESSION: Small paraesophageal hernia.
[2022-01-27] MEDS: cholecalciferol (vitamin D3) 5,000 unit Tablet 5000 UNIT PO (08:07)
[2022-01-27] MEDS: oxybutynin 5 mg Tablet PO ×2 (08:07→18:08)
[2022-01-27] MEDS: carvedilol 12.5 mg Tablet PO (08:07)
[2022-01-27] MEDS: budesonide 0.5 mg/2 mL Neb INHALATION ×2 (08:29→20:14)
--- NOTE | 2022-01-27 09:06 | PM.PN ---
Subjective Subjective: Patient is stating that her blood pressure is mostly high in the morning, yesterday it was 200/110 mmHg, overnight vitals noted repeating H&H Patient is noticing weakness however she is able to change position in bed, sit up on her own, endorsing weakness however nonfocal neuro exam She is concerned that her who has dementia will need help and she is very to the hospital, she is anxious to return home She is endorsing dysphagia to solids, no aspiration however right lower lobe infiltrate noted, mild vascular congestion Concern for aspiration, Requested modified barium swallow I do believe blood gases venous that was done at the time of admission she is saturating well on room air Iron deficiency anemia High BNP, signs of vascular congestion on x-ray noted Vitals/I&O/Wt Last Vital Signs Temp 98.1 F 01/27/22 07:08 Pulse 80 01/27/22 08:30 Resp 16 01/27/22 08:30 BP 155/82 01/27/22 08:00 Pulse Ox 94 01/27/22 08:30 01/26/22 01/27/22 01/27/22 22:59 06:59 14:59 Intake Total 1571.667 / 1571.667 410 / 1981.667 Output Total 0 / 0 Balance 1571.667 / 1571.667 410 / 1981.667 Weight last 48 hrs Weight 54.159 kg Weight 53.705 kg Weight 51.71 kg Physical Exam Narrative: Patient is very pleasant cooperative Looks slightly dehydrated Nonfocal neuro exam Muscle mass loss Abdomen soft Very pleasant cooperative No audible stridor or wheezing I do not see any active signs of fluid overload Clinically no signs of CHF exacerbation Patient is endorsing dyspnea to exertion Data : 01/27/22 01:37 01/27/22 01:37 Micro: Microbiology 01/26/22 13:40 Blood Culture - Preliminary Blood SPECIMEN COLLECTED 01/26/22 13:33 Blood Culture - Preliminary Blood SPECIMEN COLLECTED A&P Assessment and plan (1) Aortic root dilatation: Status: Chronic (2) Generalized weakness: Status: Acute (3) Accelerated hypertension: Status: Acute (4) Polypharmacy: Status: Acute (5) Difficulty swallowing solids: Status: Acute (6) Normocytic anemia: Status: Acute (7) Overactive bladder: Status: Chronic (8) Dehydration: Status: Acute (9) Advanced age: Status: Chronic Plan Hypertensive urgency: Improved Optimize antihypertensive regimen Nonfocal neuro exam Requested PT Multiple medications have been changed in the last few months Currently on Coreg, losartan, will add Lasix low-dose, patient has exertional dyspnea,, EF preserved, grade 1 diastolic dysfunction Generalized weakness could be related to underlying anemia She has iron deficiency anemia, there is drop in hemoglobin from 10.8-8.9, repeat H&H this morning Patient is not endorsing active bleeding FOBT pending Hold Plavix TSH normal Dysphagia to solids: Concern for aspiration pneumonia Right lower lobe aspiration pneumonia Start her on Augmentin We will also add low-dose Lasix Considering hypertensive stage III I will add a diuretic Modified barium swallow today n.p.o. until we get modified barium swallow No active focal neurological deficit NIH 0 PT evaluation today N.p.o. 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
[2022-01-27 09:58] LABS: Hematocrit 31.1 % (37.0-47.0)
--- NOTE | 2022-01-27 10:15 | PC.CHAP ---
Pastoral Care Encounter/Spiritual Assessment Type of Contact [] Declined ediscovery project manager visit [] Patient/Family/Request visit [] Outpatient visit [] Follow-up visit [] Physician referral [] Code/Alert [x] Routine visit [] Staff referral [] Actively dying [] Patient sleeping [] Family support [] [] Out of room [] Palliative care [] [x] Receiving care in room [] Pre-surgical visit [] Trauma [] Long length of stay [] ICU visit [] Other: Relational/Emotional Strength [x] Patient feels connected with others/family/visitors/staff [] Distress [] Loneliness/isolation [] Abandonment Spirituality of Patient [x] Person of Nelli [] Attends Restorationist of their Nelli [] Believes in Prayer [] Reads Bible or Evangelical materials [] There are Spiritual issues to be addressed 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 Interventions [x] Prayer [] Active listening [] Non-anxious presence [] Spiritual/emotional support [] Crisis/trauma care [] Spiritual counseling [] Bereavement support [] Provided bereavement packet [] Provided Bible/devotional materials [] Provided toy/stuffed animal, coloring book to patient or family member [] Provided Communion [] Anointing/Bailey [] Salvation [] Completed spiritual assessment [] Other: Impact on Illness or Injury [] Angry [] Fearful [] Anxious [] Often cries [] Exhaustion [] Unable to work [] Unable to attend anabaptism [] Unable to walk/stand [] Unable to read [] Unable to drive [] Unable to eat/drink [] Unable to sleep [] Unable to be with family [] Patient intubated [] Other: Summary she is feeling has a good attitude juan r go home Time spent with patient 10 mjns
[2022-01-27] MEDS: potassium chloride oral liq 20 mEq/15 mL UDC 40 MEQ PO (10:25)
[2022-01-27] MEDS: FUROsemide 20 mg Tablet PO (10:25)
[2022-01-27] MEDS: enoxaparin 30 mg/0.3 mL Syringe SUBCUT (18:06)
[2022-01-27] MEDS: amoxicillin-clav 875-125 mg Tablet 1 TAB PO (18:07)
[2022-01-27] MEDS: docusate sodium 100 mg Capsule PO (18:08)
[2022-01-27] MEDS: carvedilol 25 mg Tablet PO (18:08)
[2022-01-27] MEDS: sennosides 8.6 mg Tablet 17.2 MG PO (20:38)
[2022-01-27] MEDS: atorvastatin 40 mg Tablet 80 MG PO (20:38)
[2022-01-28] VITALS (7 sets, daily range): BP systolic 136–151; BP diastolic 61–75; PULSE 64–67; RESP 16–17; TEMP 36.6–36.8; O2SAT 91–96
[2022-01-28] MEDS: morphine IR 15 mg Tablet PO (05:20)
[2022-01-28] MEDS: duloxetine 20 mg Capsule PO (05:20)
[2022-01-28 05:52] LABS: Hematocrit 28.2 % (37.0-47.0); Hemoglobin 9.4 g/dL (11.5-15.3); Mean Corpuscular HGB Conc 33.3 g/dL (30.0-36.0); Mean Corpuscular Hemoglobin 32.8 pg (28.0-34.0); Mean Corpuscular Volume 98.3 fl (81-99); Mean Platelet Volume 11.1 fL (7.4-10.4); Platelet Count 118 10^3/cmm (130-400); Red Blood Count 2.87 10^6/uL (4.1-5.3); Red Cell Distribution Width 12.5 % (12.1-15.1); White Blood Count 5.3 10^3/uL (4.0-10.0)
[2022-01-28 06:10] LABS: Blood Urea Nitrogen 14 mg/dL (8-23); Calcium 8.6 mg/dL (8.5-10.5); Carbon Dioxide 23 mmol/L (22-29); Chloride 104 mmol/L (98-107); Glucose 94 mg/dL (65-115); Magnesium 2.1 mg/dL (1.7-2.3); Osmolality Calculated 280 mOsm/kg (285-295); Sodium 135 mmol/L (136-145)
[2022-01-28 06:12] LABS: Anion Gap 12.1 (5-19); Potassium 4.1 mmol/L (3.5-5.1)
[2022-01-28 06:18] LABS: Segmented Neutrophils 57 %; Total Cells Counted 100 (0-100)
[2022-01-28 06:19] LABS: Absolute Eosinophils 0.2 10^3/cmm (0.0-0.7); Blastocytes 0 % (0-0); Eosinophils 4 %; Lymphocytes 25 %; Lymphocytes Absolute 1.6 10^3/cmm (1.2-3.4); Monocytes Absolute 0.4 10^3/cmm (0.1-0.6); Platelet Estimate Decreased (Normal)
[2022-01-28] MEDS: calcium carb-vit d 600mg/400unit 1 Tablet 1 EACH PO (08:00)
[2022-01-28] MEDS: cholecalciferol (vitamin D3) 5,000 unit Tablet 5000 UNIT PO (08:00)
[2022-01-28] MEDS: pantoprazole DR 40 mg Tablet PO (08:00)
[2022-01-28] MEDS: losartan 50 mg Tablet PO (08:00)
[2022-01-28] MEDS: oxybutynin 5 mg Tablet PO (08:00)
[2022-01-28] MEDS: gabapentin 400 mg Capsule 800 MG PO (08:01)
[2022-01-28] MEDS: docusate sodium 100 mg Capsule PO (08:01)
[2022-01-28] MEDS: magnesium oxide 400 mg tablet PO (08:01)
[2022-01-28] MEDS: amoxicillin-clav 875-125 mg Tablet 1 TAB PO (08:01)
[2022-01-28] MEDS: carvedilol 25 mg Tablet PO (08:01)
[2022-01-28] MEDS: FUROsemide 20 mg Tablet PO (08:01)
[2022-01-28] MEDS: budesonide 0.5 mg/2 mL Neb INHALATION (08:43)
--- NOTE | 2022-01-28 10:04 | P.DS_ITS ---
Discharge Providers Date of Admission: 01/26/22 15:28 Date of Discharge: January 28, 2022 Attending Provider at Admission: Daphne Brizuela MD Attending Provider at Discharge: Anne Uriarte MD Primary Care Provider: Castro Hinson DO Diagnoses at Discharge Discharge Diagnosis (1) Aortic root dilatation: Status: Chronic (2) Generalized weakness: Status: Acute (3) Accelerated hypertension: Status: Acute (4) Polypharmacy: Status: Acute (5) Difficulty swallowing solids: Status: Acute (6) Normocytic anemia: Status: Acute (7) Overactive bladder: Status: Chronic (8) Dehydration: Status: Acute (9) Advanced age: Status: Chronic Reason for Visit Reason for Visit: high bp/weakness/lethargic/SOB/chills Hospital Course Hospital Course Admitting note of Dr. Brizuela Dodie Jaffe is a 86 year old female who presented to the emergency room with chief complaint of weakness.? She had also been having elevated blood pressures.? She lives with her who is 96 though has children nearby.? She has had somewhat steady decline over the last few weeks.? Towards the end of December family noted that she was having episodes of slurred speech.? She had been having high blood pressures then as well.? It was difficult to ascertain exactly when she started to have speech difficulties but in the 48 hours prior to that ED visit it had worsened. She denied any focal areas of weakness at that time though did complain of general weakness.? In reviewing her history it was discovered that her blood pressure issues have been going on at least since October or so.? See medication section of this note for details of medication changes related to antihypertensive treatment this year.? She checks her blood pressure every morning.? She reports compliance with her medications.? Despite increasing doses of antihypertensives her blood pressures have remained elevated.? She does take pain medication regularly in the form of extended release morphine twice a day.? She denies missing doses.? She had followed with Dr. Gonzales previously.? Indicated in last note when she saw him that she was trying to wean herself off of pain medicines but she denied missing doses today.? Also denied taking excessive amount of doses.? She had gone to see her primary care provider this morning, Dr. Hinson, and she was unable to stand and was instructed to come to the emergency room for evaluation due to the degree of her weakness.? In the last couple of days she has had chills and one episode of fever.? She has had a headache.? She complained of some ear discomfort primarily on the left but denied any runny nose or sore throat.? No chest congestion.? She has not had any diarrhea.? She had one episode of vomiting on the same day that she presented to the emergency room on January 18 with dysarthria.? She frequently is nauseated and it usually worse in the supine position.? She has been unable to stand for the last couple of days.? Describes palpitations and occasional irregular heartbeat.? Also reports having a very difficult time catching her breath today also noted by the family.? She has had some edema in her ankles since resuming amlodipine.? This was a known side effect of amlodipine for her in the past.? She reports decreased oral intake, incontinence but no dysuria.? Describes dysphagia for solids more so than liquids that has also been progressively worsening.? Overall she describes the shortness of breath and the being extremely tired as the more significant abnormalities.? Work-up in the emergency room showed low potassium and sodium.? Also identified with some findings of pneumonitis on chest x-ray.? Patient was given a dose of Unasyn in the emergency room for coverage of presumed aspiration.? In addition she received some IV fluids and potassium replacement.? Given her persistent weakness hospitalist were called for admission.? History was obtained from patient and her son who was present in the room.? I also spoke with Dr. Munoz.? He indicated that patient often has some memory issues when seen in clinic and he is wondered at times if she is taking her medications at home as prescribed. Hospital course Patient was admitted for management and evaluation of hypertensive urgency, generalized weakness and dehydration. She was hydrated with IV fluids, she was kept on losartan, Coreg, during her hospitalization that kept her blood pressure below 140 mmHg. Hydralazine was not given during hospitalization. After IV fluid hydration patient was feeling better on 01/28. Her generalized weakness work-up did not reveal any acute pathological changes. Head CT unremarkable, chest x-ray showed pneumonitis, I requested modified barium swallow to evaluate her for dysphagia to solid food. It is showing small paraesophageal hernia. For now recommended conservative management, no need of surgical intervention unless her symptoms worsens in future. She probably experienced aspiration pneumonitis secondary to GERD due to paraesophageal hernia I have added 3 more days of Augmentin. At the time of discharge I have discontinued amlodipine, reduce the dose of hydralazine to 25 mg 3 times daily instead of 50 mg, she can continue her ARB and AV clinton blocking agent, I would not put her on any extra antihypertensive regimen, she already has a lot of medications at age 86. Did well with physical therapy okay to treat at home at the time of discharge blood pressure 136/60 mmHg, heart rate 66, afebrile. Normal TSH, procalcitonin, no signs of infection. She does have iron deficiency anemia, she should continue iron supplementation hemoglobin stable Physical Exam Narrative: Patient is afebrile Doing well on room air Hemodynamically stable Nonfocal neuro exam Very pleasant cooperative S1, S2 Abdomen soft Nonlabored breathing Discharge Data Studies Completed and Pending Completed Studies During Hospitalization Category Date Time Status CT head wo con* 97000 Stat Cat Scan 01/26/22 10:30 Completed Modified barium swallow [FL barium swallow modifd 15134 Exams 01/27/22 08:03 Completed ] Routine XR chest 1V portable [id number] Stat Exams 01/26/22 10:39 Completed CV. echo complete* [id number] Routine Ultrasound 01/26/22 16:09 Completed Pending at discharge Category Date Time Status Blood Culture Stat Lab 01/26/22 13:40 Results Histone Antibodies Routine Lab 01/26/22 19:05 Received Immunochemical Fecal OCB Routine Lab 01/26/22 16:09 Uncollected Occult Blood Stool [Immunochemical Fecal OCB] Routine Lab 01/27/22 07:35 U ncollected Radiology Impressions Head CT 01/26/22 10:30 IMPRESSION: 1. No evidence of intracranial hemorrhage or mass effect. 2. Moderate small vessel changes with moderate parenchymal volume loss. 3. No acute intracranial findings and no changes compared to January 18, 2022. Chest X-Ray 01/26/22 10:39 IMPRESSION: Interval development of lung opacities in the right lower lung zone which may indicate subacute pneumonitis. Modified Barium Swallow 01/27/22 08:03 IMPRESSION: Small paraesophageal hernia. Laboratory Results WBC 5.3 10^3/uL (4.0-10.0) 01/28/22 05:25 RBC 2.87 10^6/uL (4.1-5.3) L 01/28/22 05:25 Hgb 9.4 g/dL (11.5-15.3) L 01/28/22 05:25 Hct 28.2 % (37.0-47.0) L 01/28/22 05:25 MCV 98.3 fl (81-99) 01/28/22 05:25 MCH 32.8 pg (28.0-34.0) 01/28/22 05:25 MCHC 33.3 g/dL (30.0-36.0) 01/28/22 05:25 RDW 12.5 % (12.1-15.1) 01/28/22 05:25 Plt Count 118 10^3/cmm (130-400) L 01/28/22 05:25 MPV 11.1 fL (7.4-10.4) H 01/28/22 05:25 Neut % (Auto) 69.3 % 01/27/22 01:37 Lymph % (Auto) Not Reportable 01/28/22 05:25 [place] % (Auto) Not Reportable 01/28/22 05:25 Eos % (Auto) 0.6 % 01/27/22 01:37 Baso % (Auto) 0.4 % 01/27/22 01:37 Neut # (Auto) 3.44 10^3/uL (1.8-7.7) 01/27/22 01:37 Lymph # (Auto) Not Reportable 01/28/22 05:25 [place] # (Auto) Not Reportable 01/28/22 05:25 Eos # (Auto) 0.0 10^3/uL (0.0-0.8) 01/27/22 01:37 Baso # (Auto) 0.0 10^3/uL (0.0-0.1) 01/27/22 01:37 Nucleated RBC % (auto) 0 % 01/27/22 01:37 Total Counted 100 (0-100) 01/28/22 05:25 Atypical Lymphs % 6.0 % (0-5) H 01/28/22 05:25 Absolute Neutrophils 3.0 10^3/cmm (1.4-6.5) 01/28/22 05:25 Segmented Neutrophils 57 % 01/28/22 05:25 Abs Segm Neuts (Man) 3.0 10/cmm (1.6-7.1) 01/28/22 05:25 Band Neutrophils 0.0 % 01/28/22 05:25 Abs Band Neuts (Man) 0.0 10^3/cmm (0.0-1.2) 01/28/22 05:25 Absolute Lymphocytes 1.6 10^3/cmm (1.2-3.4) 01/28/22 05:25 Lymphocytes (Manual) 25 % 01/28/22 05:25 Monocytes (Manual) 8.0 % 01/28/22 05:25 Absolute Monocytes 0.4 10^3/cmm (0.1-0.6) 01/28/22 05:25 Eosinophils (Manual) 4 % 01/28/22 05:25 Absolute Eosinophils 0.2 10^3/cmm (0.0-0.7) 01/28/22 05:25 Basophils (Manual) 0.0 % 01/28/22 05:25 Absolute Basophils 0.0 10^3/cmm (0.0-0.2) 01/28/22 05:25 Metamyelocytes 0.0 % 01/28/22 05:25 Myelocytes 0.0 % 01/28/22 05:25 Promyelocytes 0.0 % 01/28/22 05:25 Nucleated RBCs 0.0 /100WBC (0-1) 01/28/22 05:25 Nucleated RBCs # 0.0 /100WBC 01/27/22 01:37 Blast Cells 0 % (0-0) 01/28/22 05:25 Platelet Estimate Decreased (Normal) L 01/28/22 05:25 PT 15.00 SECONDS (12.1-14.9) H 01/26/22 12:09 INR 1.15 (0.8-1.2) 01/26/22 12:09 APTT 36.1 SECONDS (23.9-36.7) 01/26/22 12:09 Specimen Type Arterial 01/26/22 17:10 Sample Site Brachial, right 01/26/22 17:10 ABG pH 7.52 (7.35-7.45) H 01/26/22 17:10 ABG pCO2 27.9 mmHg (35-45) L 01/26/22 17:10 ABG pO2 55.1 mmHg (80.0-100.0) L 01/26/22 17:10 ABG HCO3 22.6 mmol/L (22-26) 01/26/22 17:10 ABG Base Excess 0.4 mmol/L (-2.0-2.0) 01/26/22 17:10 Tip Test N/a 01/26/22 17:10 Hematocrit 31.5 % (37-47) L 01/26/22 17:10 O2 Delivery Device Room air 01/26/22 17:10 FiO2 21.0 % 01/26/22 17:10 Engagement Director ID Amh 01/26/22 17:10 Sodium 135 mmol/L (136-145) L 01/28/22 05:25 Potassium 4.1 mmol/L (3.5-5.1) 01/28/22 05:25 Chloride 104 mmol/L (98-107) 01/28/22 05:25 Carbon Dioxide 23 mmol/L (22-29) 01/28/22 05:25 Anion Gap 12.1 (5-19) 01/28/22 05:25 BUN 14 mg/dL (8-23) 01/28/22 05:25 Creatinine 0.5 mg/dL (0.5-0.9) 01/28/22 05:25 GFR Calculation Not Reportable 01/28/22 05:25 Glucose 94 mg/dL (65-115) 01/28/22 05:25 POC Glucose 128 mg/dL (70-110) H 01/26/22 12:19 Calculated Osmolality 280 mOsm/kg (285-295) L 01/28/22 05:25 Lactate 1.1 mmol/L (0.5-2.2) 01/26/22 13:33 Calcium 8.6 mg/dL (8.5-10.5) 01/28/22 05:25 Phosphorus 2.7 mg/dL (2.5-4.5) 01/27/22 01:37 Magnesium 2.1 mg/dL (1.7-2.3) 01/28/22 05:25 Iron 20 ug/dL (37-145) L 01/26/22 12:09 TIBC 211 mcg/dl 01/26/22 12:09 % Saturation 9.4 % (20-50) L 01/26/22 12:09 Unsat Iron Binding 191 ug/dL (112-347) 01/26/22 12:09 Total Bilirubin 0.4 mg/dL (0.15-1.2) 01/26/22 12:09 AST 19 U/L (0-32) 01/26/22 12:09 ALT 13 U/L (0-33) 01/26/22 12:09 Alkaline Phosphatase 32 IU/L (35-105) L 01/26/22 12:09 Creatine Kinase 100 U/L (26-192) 01/26/22 12:09 Troponin T Baseline 25 ng/L (0-10) H 01/26/22 19:05 Troponin T 120 Minute 25.37 ng/L (0-10) H 01/26/22 21:05 Delta Troponin T 0.37 ABS# (0-10) 01/26/22 21:05 Troponin T Hi Sens 6Hr 24.33 ng/L (0-10) H 01/27/22 01:37 Troponin T Hi Sens 6Hr Delta -0.67 ng/L (0-12) L 01/27/22 01:37 NT-Pro-B Natriuret Pep 4494 pg/mL (0-450) H 01/26/22 12:09 Total Protein 6.4 g/dL (6.6-8.7) L 01/26/22 12:09 Albumin 3.9 g/dL (3.5-5.2) 01/26/22 12:09 Globulin 2.5 g/dL (1.3-4.6) 01/26/22 12:09 Procalcitonin 0.35 ng/mL (0-0.5) 01/26/22 12:09 TSH 0.52 uIU/mL (0.27-4.20) 01/26/22 12:09 Urine Color Dark yellow (Yellow) 01/26/22 Unknown Urine Appearance Clear (CLEAR) 01/26/22 Unknown Urine pH 5 (5-7) 01/26/22 Unknown Ur Specific [place] 1.015 (1.005-1.030) 01/26/22 Unknown Urine Protein Trace (Negative) 01/26/22 Unknown Urine Glucose (UA) Norm (Normal) 01/26/22 Unknown Urine Ketones 2+ (Negative) H 01/26/22 Unknown Urine Blood Neg (Negative) 01/26/22 Unknown Urine Nitrate Negative (Negative) 01/26/22 Unknown Urine Bilirubin Neg (Negative) 01/26/22 Unknown Urine Urobilinogen Neg mg/dL (Negative) 01/26/22 Unknown Ur Leukocyte Esterase Negative (Negative) 01/26/22 Unknown Urine RBC Rare /hpf (0-2) 01/26/22 Unknown Urine WBC Rare /hpf (0-5) 01/26/22 Unknown Ur Squamous Epith Cells 5-10 /hpf (0-5) H 01/26/22 Unknown Amorphous Sediment Not Reportable 01/26/22 Unknown Urine Bacteria Trace /hpf (NONE) 01/26/22 Unknown Urine Mucus 2+ /hpf 01/26/22 Unknown Urine Opiates Screen Positive ng/mL (Negative) H 01/26/22 Unknown Ur Barbiturates Screen Negative ng/mL (Negative) 01/26/22 Unknown Ur Phencyclidine Scrn Negative ng/mL (Negative) 01/26/22 Unknown Ur Amphetamines Screen Negative ng/mL (Negative) 01/26/22 Unknown U Benzodiazepines Scrn Negative ng/mL (Negative) 01/26/22 Unknown Urine Cocaine Screen Negative ng/mL (Negative) 01/26/22 Unknown U Marijuana (THC) Screen Negative ng/mL (Negative) 01/26/22 Unknown Vitals Last Vital Signs Temp 98.1 F 01/28/22 07:00 Pulse 66 01/28/22 08:43 Resp 16 01/28/22 08:43 BP 136/68 01/28/22 08:00 Pulse Ox 93 01/28/22 08:43 Discharge Plan Discharge Patient Disposition: Home Condition: Stable Prescriptions: New pantoprazole 40 mg Tablet,Delayed Release (Dr/Ec) 20 mg PO BID Qty: 60 0RF amoxicillin-pot clavulanate 875-125 mg Tablet 1 tab PO BID Qty: 6 0RF ferrous sulfate [Iron (ferrous sulfate)] 325 mg (65 mg iron) tablet 325 mg PO DAILY Qty: 60 3RF Continued cholecalciferol (vitamin D3) 5,000 unit capsule 5,000 unit PO QAM 0RF acetaminophen [Tylenol Arthritis Pain] 650 mg tablet extended release 1,300 mg PO BID 0RF gabapentin 800 mg tablet 800 mg PO TID 0RF polyethylene glycol 3350 [Miralax] 17 gram/dose powder 17 g PO DAILY PRN (Reason: constipation) 0RF nitroglycerin [Nitrostat] 0.4 mg tablet, sublingual 0.4 mg SUBLINGUAL Q5M PRN (Reason: chest pain) 30 Days Qty: 30 0RF carvedilol 25 mg tablet 25 mg PO BID 90 Days Qty: 180 3RF Rx Instructions: must administer with a meal/food duloxetine [Cymbalta] 20 mg capsule,delayed release(DR/EC) 20 mg PO QAM 0RF oxybutynin chloride 10 mg tablet extended release 24hr 10 mg PO DAILY 0RF clopidogrel 75 mg tablet 75 mg PO QAM 0RF magnesium 250 mg Tablet 250 mg PO BEDTIME 0RF Prolia 60 mg/mL Syringe See Rx Instructions .ROUTE .COMPLEX 0RF Rx Instructions: EVERY SIX MONTHS Calcium 600 + D(3) 1 tab PO BID 0RF pravastatin 80 mg tablet 80 mg PO QAM 0RF valsartan 320 mg tablet 320 mg PO QAM 0RF morphine 15 mg tablet 15 mg PO BID 0RF Rx Instructions: fill on or after 01/05/22 Changed hydralazine 50 mg tablet 25 mg PO TID Qty: 270 3RF Discontinued amlodipine 2.5 mg tablet 2.5 mg PO QAM 0RF Discharge Orders: Discharge Order (Routine); Ordered 01/28/22 Ordered By: Anne Uriarte Other Ambulatory Orders: DME: Guillermo (Order) Location: None Selected Ordered By: Anne Uriarte Referrals: Castro Hinson DO [Primary Care Provider] - 02/07/22 3:15 pm Discharge Diet: Cardiac Discharge Activity: Increase activity as tolerated Patient Instructions: Amoxicillin (By mouth), Pantoprazole (By mouth), Hypertension, Opioid Safety Discharge Attestations Time Spent in Discharge Care*: less than 30 min Quality Metrics Clinical Quality Measures [ No reported AMI, CVA or VTE this stay] Coding Level of Care Code Acute Chg FW DC note Diagnoses Aortic root dilatation I77.810 Generalized weakness R53.1 Accelerated hypertension I10 Polypharmacy Z79.899 Difficulty swallowing solids R13.10 Normocytic anemia D64.9 Overactive bladder N32.81 Dehydration E86.0 Advanced age R54
--- NOTE | 2022-01-28 13:04 | PC.NURSE ---
Discharge Note Patient discharged to private vehicle via wheelchair accompanied by son. Discharge instructions reviewed with patient and son, both verbalized understanding. Prescriptions sent to pharmacy, pt and son informed of this and meds reviewed with pt and son. Belongings sent home with pt as well as new walker that pt qualified for.
== END 2022-01-28 13:09 | disposition home or self-care (01) | DRG 640 ==
LOC: ER 12:21 → MEDSURG 16:12
PROVIDERS: Admitting Provider Hospitalist; Emergency Provider Emergency Medicine; PCP Internal Medicine; Visit Provider Internal Medicine
DX: E86.0 Dehydration (principal); J69.0 Pneumonitis due to inhalation of food and vomit; I16.0 Hypertensive urgency; R41.82 Altered mental status, unspecified; Z98.1 Arthrodesis status; Z87.891 Personal history of nicotine dependence; R13.10 Dysphagia, unspecified; D50.9 Iron deficiency anemia, unspecified; Z86.73 Personal history of transient ischemic attack (TIA), and cerebral infarction without residual deficits; I77.819 Aortic ectasia, unspecified site; E78.5 Hyperlipidemia, unspecified; I08.2 Rheumatic disorders of both aortic and tricuspid valves; M81.0 Age-related osteoporosis without current pathological fracture; N32.81 Overactive bladder; Z79.891 Long term (current) use of opiate analgesic; Z79.02 Long term (current) use of antithrombotics/antiplatelets; K44.9 Diaphragmatic hernia without obstruction or gangrene; I10 Essential (primary) hypertension; G89.29 Other chronic pain; M54.9 Dorsalgia, unspecified
CPT/HCPCS: 36415; 36416; 36600; 70450; 71045; 74230; 80048; 80053; 80306; 81001; 82550; 82803; 82962; 83516; 83540; 83550; 83605; 83735; 83880; 84100; 84145; 84443; 84484; 85007; 85014; 85018; 85025; 85610; 85730; 87040; 92523; 92610; 92611; 93005; 93306; 94640; 96365; 96372; 97161; 97530; 99285; J0295; J1650; J7030; J7611; J7626

== ENCOUNTER 2022-01-31 10:22 | Emergency (ER) | payer MEDICARE, OTHER, SELFPAY ==
[2022-01-31 10:23] VITALS: BP 106/55; PULSE 64; RESP 18; TEMP 36.6; O2SAT 93; BMI 19.6
[2022-01-31 10:36] VITALS: BP 106/55; PULSE 63; RESP 15; O2SAT 95
--- NOTE | 2022-01-31 11:05 | ECG_ITS ---
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 Measurements Intervals [place] Rate: 64 P: 78 CA: 233 QRS: 2 QRSD: 144 T: -31 QT: 436 QTc: 451 Interpretive Statements SINUS RHYTHM WITH SINUS ARRHYTHMIA WITH FIRST DEGREE AV BLOCK INTRAVENTRICULAR CONDUCTION DELAY [130+ ms QRS DURATION] Compared to ECG 01/27/2022 00:54:12 No significant changes Electronically Signed On 01-31-2022 22:59:19 CDT by Katya Munoz M.D. [id number]
--- NOTE | 2022-01-31 11:05 | XRR_ITS ---
PROCEDURE INFORMATION: Exam: XR Chest Exam date and time: 01/31/2022 11:14 AM Age: 86 years old Clinical indication: Cough and dyspnea; Additional info: Dyspnea/cough TECHNIQUE: Imaging protocol: XR of the chest. Views: 1 view. COMPARISON: CR XR chest 1V portable [id number] 01/26/2022 11:11 AM FINDINGS: Lungs: Subtle airspace disease left lung base/costophrenic angle. Pleural spaces: See Lungs finding. Heart/Mediastinum: Cardiac silhouette is enlarged. Bones/joints: Unremarkable. XR/XR chest 1V portable [id number] IMPRESSION: Subtle airspace disease left lung base/costophrenic angle. Lungs are otherwise well aerated.
[2022-01-31 11:12] LABS: Basophils # 0.1 10^3/uL (0.0-0.1); Basophils % 0.6 %; Eosinophils # 0.1 10^3/uL (0.0-0.8); Eosinophils % 1.3 %; Hematocrit 32.6 % (37.0-47.0); Hemoglobin 10.8 g/dL (11.5-15.3); Lymphocytes # 1.2 10^3/uL (0.8-4.8); Lymphocytes % 14.6 %; Mean Corpuscular HGB Conc 33.1 g/dL (30.0-36.0); Mean Corpuscular Volume 96.4 fl (81-99); Mean Platelet Volume 10.7 fL (7.4-10.4); Monocytes # 0.5 10^3/uL (0.2-0.9); Monocytes % 6.3 %; Neutrophils # 6.07 10^3/uL (1.8-7.7); Neutrophils % 76.8 %; Nucleated Red Blood Cells % 0 %; Platelet Count 219 10^3/cmm (130-400); Red Blood Count 3.38 10^6/uL (4.1-5.3); Red Cell Distribution Width 12.6 % (12.1-15.1); White Blood Count 7.9 10^3/uL (4.0-10.0)
[2022-01-31 11:21] LABS: Troponin(5th) Baseline 27 ng/L (0-10)
--- NOTE | 2022-01-31 11:22 | W.ED.SYNCOPE ---
HPI - Syncope General: Chief Complaint: Syncope Stated Complaint: LOW BP, SYNCOPE Time Seen by Provider: 01/31/22 10:52 Source: patient Mode of arrival: ambulatory Limitations: no limitations History of Present Illness: 86-year-old female presents emergency room with complaint of near syncopal episodes. She was recently hospitalized for hypertension digested medications while she was here reading the discharge summary looks like she probably was not taking the prescribed medications regularly when she was actually given them required much less and hydralazine was cut down from 75 3 times daily to 25 3 times daily. The intermittent reporting blood pressures nearly 200s systolic regularly at home. Ultimately she was discharged home on valsartan 328 daily, hydralazine 25 3 times daily carvedilol 25 twice daily. Today she got up from lying down went to sit in a chair to eat and became nearly nonresponsive but did not collapse completely son was helping her she seemed to get a little better and then when they went to stand her up to take her to lay down again she had another near syncopal-like episode and EMS was called. There is no episodes of chest pain. She is awake and answers questions at this time according to the notes there is some mild underlying dementia. MD complaint: almost passed out Onset (ago): minute(s) Prodromal symptoms: lightheaded Witnessed: Yes - by Bystander Context: standing up Injuries sustained associated with event: none Associated symptoms: Reports lightheadedness; Deny abdominal pain, chest pain, fever(s), headache(s), nausea, short of breath, vertigo or weakness Treatments prior to arrival: none Review of Systems Const: Denies: fever(s) or chills Eyes: Denies: change in vision or blurry vision ENMT: Denies: throat pain, ear or mastoid pain, nasal discharge or nasal congestion Card: Reports: swelling of feet/ankles, lightheadedness and pre-syncope; Denies: chest pain, palpitations or irregular heart rhythm Resp: Denies: dyspnea, productive cough or non-productive cough GI: Denies: abdominal pain or nausea : Denies: flank pain, difficulty voiding, dysuria, urinary frequency or urinary urgency Skin/Breast: Denies: rash or pruritus Neuro: Denies: headache(s) or vertigo PFSH ED PFSH: Medical History Accelerated hypertension Advanced age Aortic root dilatation Arthritis of facet joint of lumbar spine Benign essential HTN Chronic back pain greater than 3 months duration COVID-19 vaccine administered Moderna x 2 doses Dehydration Difficulty swallowing solids Displacement of lumbar disc with radiculopathy Dyslipidemia (high LDL; low HDL) Generalized osteoarthritis of multiple sites Generalized weakness History of recent stroke Irritable bowel syndrome Long-term use of high-risk medication Extended release morphine Normocytic anemia Opioid contract exists Osteoporosis Overactive bladder Polypharmacy Post laminectomy syndrome Spondylolisthesis, lumbar region Spondylosis of lumbosacral spine without myelopathy Stroke determined by clinical assessment 01/18/22 dysarthria Thoracic aortic aneurysm Tricuspid regurgitation Ventricular arrhythmia Surgical History [place] of lumbar [place] cord decomp[place] [place] S/P bunionectomy S/P hysterectomy S/P lumpectomy of breast S/P repair of vertebral fracture 08/2019- [facility] [place] [id number] Status post lumbar surgery 01/14/09- Dr Borja [facility] Family History Father Congestive heart disease CAD (coronary artery disease) Sister No problems noted. Mother CAD (coronary artery disease) Diabetes Dementia Family/Other Diabetes Other Heart disease Hyperlipidemia Hypertension Denies family history of Clotting disorder Chronic kidney disease (CKD) Suicide Anesthesia complication Bleeding disorder Lung disease Cancer Stroke Social History Smoking and tobacco status: former smoker Second hand smoke exposure: No Alcohol intake: never Household members: spouse Marital status details: Spouse 10 years older than her Physical Exam Const: GENERAL APPEARANCE: cooperative and comfortable ORIENTATION/CONSCIOUSNESS: Yes awake, Yes oriented to person, Yes oriented to place and Yes oriented to time HENMT: COMMON NORMALS: normocephalic, atraumatic and hearing grossly normal bilaterally HEAD & SCALP: normocephalic and atraumatic Neck/C-Spine: COMMON NORMALS: no JVD Resp: COMMON NORMALS: normal respiratory effort, No retractions, No use of accessory muscles and clear to auscultation bilaterally AUSCULTATION: clear to auscultation bilaterally Cardio: COMMON NORMALS: no JVD, regular rate, regular rhythm and No murmurs present (Cardio) RATE: regular rate RHYTHM: regular rhythm GI: COMMON NORMALS: Soft to palpation and No hepatosplenomegaly present AUSCULTATION: Yes normoactive bowel sounds PALPATION: Yes Soft to palpation, No Tenderness to palpation present (GI), No Guarding due to palpation present (GI) and Yes No hepatosplenomegaly present Extremity: COMMON NORMALS: normal to inspection, capillary refill normal, no clubbing, cyanosis or edema, no calf tenderness and no pedal edema Neuro: SENSORIUM/ORIENTATION: Yes oriented to person, Yes oriented to place and Yes oriented to time Skin: COMMON NORMALS: no rashes or lesions noted GENERAL SKIN EXAM: no rashes or lesions noted Course Vital Signs: Vital signs: Vital Signs Temperature 97.9 F 01/31/22 10:23 Pulse Rate 72 01/31/22 13:25 Respiratory Rate 16 01/31/22 12:34 Blood Pressure 122/82 01/31/22 13:25 Pulse Oximetry 96 01/31/22 13:25 MDM - Syncope Medical Decision Making Stop hydralazine continue all other medications as previously prescribed follow-up with primary care physician by the end of the week to reevaluate blood pressure. Labs and EKGs reviewed as found in the chart. Medical Records I reviewed the patient's medical records. Lab Data I reviewed the patient's lab results. : 01/31/22 10:13 01/31/22 10:13 Radiology Impressions Chest X-Ray 01/31/22 11:05 IMPRESSION: Subtle airspace disease left lung base/costophrenic angle. Lungs are otherwise well aerated. Laboratory Results WBC 7.9 10^3/uL (4.0-10.0) 01/31/22 10:13 RBC 3.38 10^6/uL (4.1-5.3) L 01/31/22 10:13 Hgb 10.8 g/dL (11.5-15.3) L 01/31/22 10:13 Hct 32.6 % (37.0-47.0) L 01/31/22 10:13 MCV 96.4 fl (81-99) 01/31/22 10:13 MCH 32.0 pg (28.0-34.0) 01/31/22 10:13 MCHC 33.1 g/dL (30.0-36.0) 01/31/22 10:13 RDW 12.6 % (12.1-15.1) 01/31/22 10:13 Plt Count 219 10^3/cmm (130-400) 01/31/22 10:13 MPV 10.7 fL (7.4-10.4) H 01/31/22 10:13 Neut % (Auto) 76.8 % 01/31/22 10:13 Lymph % (Auto) 14.6 % 01/31/22 10:13 [place] % (Auto) 6.3 % 01/31/22 10:13 Eos % (Auto) 1.3 % 01/31/22 10:13 Baso % (Auto) 0.6 % 01/31/22 10:13 Neut # (Auto) 6.07 10^3/uL (1.8-7.7) 01/31/22 10:13 Lymph # (Auto) 1.2 10^3/uL (0.8-4.8) 01/31/22 10:13 [place] # (Auto) 0.5 10^3/uL (0.2-0.9) 01/31/22 10:13 Eos # (Auto) 0.1 10^3/uL (0.0-0.8) 01/31/22 10:13 Baso # (Auto) 0.1 10^3/uL (0.0-0.1) 01/31/22 10:13 Nucleated RBC % (auto) 0 % 01/31/22 10:13 Nucleated RBCs # 0.0 /100WBC 01/31/22 10:13 Sodium 136 mmol/L (136-145) 01/31/22 10:13 Potassium 3.3 mmol/L (3.5-5.1) L 01/31/22 10:13 Chloride 99 mmol/L (98-107) 01/31/22 10:13 Carbon Dioxide 25 mmol/L (22-29) 01/31/22 10:13 Anion Gap 15.3 (5-19) 01/31/22 10:13 BUN 10 mg/dL (8-23) 01/31/22 10:13 Creatinine 0.7 mg/dL (0.5-0.9) 01/31/22 10:13 GFR Calculation Not Reportable 01/31/22 10:13 Glucose 124 mg/dL (65-115) H 01/31/22 10:13 Calculated Osmolality 282 mOsm/kg (285-295) L 01/31/22 10:13 Calcium 9.1 mg/dL (8.5-10.5) 01/31/22 10:13 Total Bilirubin 0.5 mg/dL (0.15-1.2) 01/31/22 10:13 AST 22 U/L (0-32) 01/31/22 10:13 ALT 21 U/L (0-33) 01/31/22 10:13 Alkaline Phosphatase 39 IU/L (35-105) 01/31/22 10:13 Troponin T Baseline 27 ng/L (0-10) H 01/31/22 10:13 Troponin T 120 Minute 24.86 ng/L (0-10) H 01/31/22 12:07 Delta Troponin T -2.14 ABS# (0-10) L 01/31/22 12:07 Total Protein 6.8 g/dL (6.6-8.7) 01/31/22 10:13 Albumin 3.9 g/dL (3.5-5.2) 01/31/22 10:13 Globulin 2.9 g/dL (1.3-4.6) 01/31/22 10:13 Urine Color Straw (Yellow) 01/31/22 11:25 Urine Appearance Clear (CLEAR) 01/31/22 11:25 Urine pH 6.5 (5-7) 01/31/22 11:25 Ur Specific [place] 1.005 (1.005-1.030) 01/31/22 11:25 Urine Protein Neg (Negative) 01/31/22 11:25 Urine Glucose (UA) Norm (Normal) 01/31/22 11:25 Urine Ketones 1+ (Negative) H 01/31/22 11:25 Urine Blood Neg (Negative) 01/31/22 11:25 Urine Nitrate Negative (Negative) 01/31/22 11:25 Urine Bilirubin Neg (Negative) 01/31/22 11:25 Urine Urobilinogen Norm mg/dL (Negative) 01/31/22 11:25 Ur Leukocyte Esterase Negative (Negative) 01/31/22 11:25 Discharge Plan Discharge Patient Disposition: Home Clinical Impression: Orthostatic hypotension, Medication side effects Condition: Stable Prescriptions: Discontinued hydralazine 50 mg tablet 25 mg PO TID Qty: 270 3RF No Action cholecalciferol (vitamin D3) 5,000 unit capsule 5,000 unit PO QAM 0RF acetaminophen [Tylenol Arthritis Pain] 650 mg tablet extended release 1,300 mg PO BID 0RF gabapentin 800 mg tablet 800 mg PO TID 0RF polyethylene glycol 3350 [Miralax] 17 gram/dose powder 17 g PO DAILY PRN (Reason: constipation) 0RF nitroglycerin [Nitrostat] 0.4 mg tablet, sublingual 0.4 mg SUBLINGUAL Q5M PRN (Reason: chest pain) 30 Days Qty: 30 0RF carvedilol 25 mg tablet 25 mg PO BID 90 Days Qty: 180 3RF Rx Instructions: must administer with a meal/food duloxetine [Cymbalta] 20 mg capsule,delayed release(DR/EC) 20 mg PO QAM 0RF oxybutynin chloride 10 mg tablet extended release 24hr 10 mg PO DAILY 0RF clopidogrel 75 mg tablet 75 mg PO QAM 0RF magnesium 250 mg Tablet 250 mg PO BEDTIME 0RF Prolia 60 mg/mL Syringe See Rx Instructions .ROUTE .COMPLEX 0RF Rx Instructions: EVERY SIX MONTHS Calcium 600 + D(3) 1 tab PO BID 0RF pravastatin 80 mg tablet 80 mg PO QAM 0RF valsartan 320 mg tablet 320 mg PO QAM 0RF morphine 15 mg tablet 15 mg PO BID 0RF Rx Instructions: fill on or after 01/05/22 pantoprazole 40 mg Tablet,Delayed Release (Dr/Ec) 20 mg PO BID Qty: 60 0RF amoxicillin-pot clavulanate 875-125 mg Tablet 1 tab PO BID Qty: 6 0RF Iron (ferrous sulfate) 325 mg (65 mg iron) tablet 325 mg PO DAILY Qty: 60 3RF Discharge Orders: Discharge ED (Routine); Ordered 01/31/22 Ordered By: Anthony Balderas Referrals: Castro Hinson DO [Primary Care Provider] - Discharge Diet: Usual diet Discharge Activity: Increase activity as tolerated Patient Instructions: Opioid Safety Activity Restrictions/Additional Instructions: Stop hydralazine continue all other medications as previously prescribed follow-up with your primary care doctor within the next 3 to 4 days Coding Level of Care Code ED Email Manager for Chg Fwd Exam Comprehensive
[2022-01-31 11:23] LABS: Alanine Aminotransferase 21 U/L (0-33); Albumin Level 3.9 g/dL (3.5-5.2); Alkaline Phosphatase 39 IU/L (35-105); Blood Urea Nitrogen 10 mg/dL (8-23); Calcium 9.1 mg/dL (8.5-10.5); Carbon Dioxide 25 mmol/L (22-29); Chloride 99 mmol/L (98-107); Globulin 2.9 g/dL (1.3-4.6); Glucose 124 mg/dL (65-115); Osmolality Calculated 282 mOsm/kg (285-295); Sodium 136 mmol/L (136-145); Total Bilirubin 0.5 mg/dL (0.15-1.2); Total Protein 6.8 g/dL (6.6-8.7)
[2022-01-31 11:24] LABS: Anion Gap 15.3 (5-19); Aspartate Amino Transferase 22 U/L (0-32); Potassium 3.3 mmol/L (3.5-5.1)
[2022-01-31 11:38] LABS: Add Urine Microscopic? NO; Charge for UA Resulting for Rev
[2022-01-31 11:51] LABS: Bilirubin Urine Neg (Negative); Blood Urine Neg (Negative); Glucose Urine UA Norm (Normal); Ketones Urine 1+ (Negative); Leukocyte Esterase Urine Negative (Negative); Nitrate Urine Negative (Negative); Protein Urine Neg (Negative); Specific Gravity, Urine 1.005 (1.005-1.030); Urine Appearance Clear (CLEAR); Urine Color Straw (Yellow); Urobilinogen Urine Norm (Negative); pH Urine 6.5 (5-7)
[2022-01-31] MEDS: sodium chloride 0.9% 500 ML 999 ML IV (11:53)
[2022-01-31 12:34] VITALS: BP 121/61; PULSE 68; RESP 16; O2SAT 96
[2022-01-31 12:42] LABS: Troponin 5 2HR 24.86 ng/L (0-10)
[2022-01-31 12:45] LABS: Troponin 5 2HR Delta -2.14 ABS# (0-10)
[2022-01-31 13:25] VITALS: BP 122/82; PULSE 72; O2SAT 96
== END 2022-01-31 13:26 | disposition home or self-care (01) ==
PROVIDERS: Emergency Provider Family Medicine; PCP Internal Medicine
DX: I95.2 Hypotension due to drugs (principal); T46.5X5A Adverse effect of other antihypertensive drugs, initial encounter; I10 Essential (primary) hypertension; E78.5 Hyperlipidemia, unspecified; Z79.899 Other long term (current) drug therapy
CPT/HCPCS: 71045; 80053; 81003; 84484; 85025; 93005; 99284; J7040

== ENCOUNTER 2022-02-01 15:19 | Outpatient (CLI) | payer MEDICARE, OTHER, SELFPAY | END 2022-02-01 15:20 | disposition home or self-care (01) | LOC: LAB 15:26 | PROVIDERS: PCP Internal Medicine; Visit Provider Family Medicine | DX: R19.7 Diarrhea, unspecified (principal) | CPT/HCPCS: 87493 ==

== ENCOUNTER → 2022-03-03 10:40 | Outpatient (BNVA) | payer MEDICARE, OTHER, SELFPAY | PROVIDERS: PCP Internal Medicine; Visit Provider Internal Medicine Cardiovascular Disease | DX: I71.2 Thoracic aortic aneurysm, without rupture (principal); I10 Essential (primary) hypertension; R07.9 Chest pain, unspecified; Z87.891 Personal history of nicotine dependence | CPT/HCPCS: 99214 ==

== ENCOUNTER → 2022-08-25 10:59 | Outpatient (BNVA) | payer MEDICARE, OTHER, SELFPAY | PROVIDERS: PCP Internal Medicine; Visit Provider Internal Medicine Cardiovascular Disease | DX: I10 Essential (primary) hypertension (principal); I49.8 Other specified cardiac arrhythmias; I36.1 Nonrheumatic tricuspid (valve) insufficiency; A04.72 Enterocolitis due to Clostridium difficile, not specified as recurrent; Z87.891 Personal history of nicotine dependence | CPT/HCPCS: 99214 ==

== ENCOUNTER 2022-09-21 12:57 | Outpatient (CLI) | payer MEDICARE, OTHER, SELFPAY ==
[2022-09-21 13:22] VITALS: BP 162/80; PULSE 57; RESP 18; TEMP 36.8; O2SAT 95
--- NOTE | 2022-09-21 13:28 | PC.NURSE ---
Pt states that she is on p.o. Vancomycin. I spoke with Dr. Hinson's nurse, and she stated that per their office, it is okay to proceed with Prolia injection. dh
[2022-09-21] MEDS: denosumab 60 mg SDV SUBCUT (13:33)
[2022-09-21 13:48] VITALS: BP 167/78; PULSE 56; RESP 18; TEMP 36.8; O2SAT 95
== END 2022-09-21 12:58 | disposition home or self-care (01) ==
PROVIDERS: PCP Internal Medicine; Referring Provider Internal Medicine; Visit Provider Internal Medicine
DX: M81.0 Age-related osteoporosis without current pathological fracture (principal)
CPT/HCPCS: 96372; J0897

== ENCOUNTER → 2022-12-28 09:33 | Outpatient (BNVA) | payer MEDICARE, OTHER, SELFPAY | PROVIDERS: PCP Internal Medicine; Visit Provider Internal Medicine Cardiovascular Disease | DX: I36.1 Nonrheumatic tricuspid (valve) insufficiency (principal); I10 Essential (primary) hypertension; I49.8 Other specified cardiac arrhythmias; I71.20 Thoracic aortic aneurysm, without rupture, unspecified; Z87.891 Personal history of nicotine dependence | CPT/HCPCS: 99214 ==

== ENCOUNTER 2023-01-18 15:31 | Outpatient (CLI) | payer MEDICARE, OTHER, SELFPAY ==
--- NOTE | 2023-01-18 15:30 | CT_ITS ---
WS: [id number] CTA THORACIC TECHNIQUE: Contrast enhanced CTA of the thoracic aorta with coronal and sagittal reformatted images a nd maximum intensity projection (MIP) images. CLINICAL INFORMATION: Follow up COMPARISON: None. DLP: 354.[address] scans at [facility] use at least one of these dose optimization techniques: automated e xposure control; mA and/or kV adjustment per patient size (includes targeted exams where dose is matc hed to clinical indication); or iterative reconstruction. FINDINGS: Ectatic ascending thoracic aorta measuring 3.5 CM. Normal caliber descending thoracic aorta. Proximal main pulmonary arteries are patent. Mild aortic calcification. Aortic root measures 3.6 cm at the sinuses of Valsalva and 3.0 cm at the sinotubular junction. Pectus excavatum. Mild coronary calcification. No mediastinal or hilar lymphadenopathy. 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 No acute pulmonary infiltrates. No focal pneumonia or pleural fluid. Bronc hiectasis in the RIGHT middle lobe. Subpleural nodularity in the RIGHT lower lobe likely inflammatory . No focal pneumonia or pleural fluid. Thoracic curve. Mild thoracic kyphosis. Chronic compression de formities in the thoracic spine. Prior kyphoplasty changes. Partially visualized pedicle screw fixati on in the lumbar spine. Partially visualized cholelithiasis CT/CT angio chest [id number] IMPRESSION: 1. Ectatic ascending thoracic aorta measuring 3.5 cm. Normal caliber descendin g thoracic aorta. 2. Aortic root measures 3.6 cm at the sinuses of Valsalva and 3.0 cm at the si notubular junction. 3. Proximal main pulmonary arteries are patent. 4. No acute pulmonary infiltrates. 5. Pectus excavatum. 6. Partially visualized cholelithiasis
[2023-01-18 15:58] LABS: Blood Urea Nitrogen 18 mg/dL (8-23)
[2023-01-18] MEDS: iohexol 350 mg/mL 500 mL Btl (per mL) IV (16:28)
== END 2023-01-18 15:32 | disposition home or self-care (01) ==
LOC: RAD 15:31
PROVIDERS: PCP Internal Medicine; Visit Provider Internal Medicine Cardiovascular Disease
DX: I71.21 Aneurysm of the ascending aorta, without rupture (principal); Q67.6 Pectus excavatum
CPT/HCPCS: 71275; 82565; 84520; Q9967

== ENCOUNTER 2023-01-25 12:12 | Outpatient (CLI) | payer MEDICARE, OTHER, SELFPAY ==
--- NOTE | 2023-01-25 12:15 | USCV_ITS ---
Dodie Jaffe Age: 87 Gender: F : 1935 Exam Date: 01/25/2023 13:10 Ordering Phys: Katya Munoz MD ([email or web address] Technologist: JAMEEL [place] [facility] [place]ication: H/O MR AND TR BP: 177 / 108 HR: 53 Rhythm: Sinus Technical Quality: Adequate MEASUREMENTS (Male / Female) Normal Values 2D ECHO LVOT Diameter 2.0 cm LV Ejection Fraction MOD 2C 60.0 % LV Ejection Fraction 2C AL 62.7 % LA Diameter 3.7 cm LA Width 3.9 cm LA Height 5.3 cm RA Width 3.7 cm RA Height 4.5 cm Aorta at Sinotubular Diameter 2.8 cm IVC Diameter 0.8 cm M-MODE Aortic Annulus Diameter 3.1 cm LA Ao Ratio MM 1.2 MV E Point Septal Separation 0.3 cm DOPPLER AV Peak Velocity 160.0 cm/s LVOT Peak Velocity 98.0 cm/s AV Area Cont Eq vti 2.5 cm squared AV Area Cont Eq pk 1.9 cm squared MV Peak Velocity 77.0 cm/s MV Area PHT 3.9 cm squared Mitral E to A Ratio 1.9 MV E' Velocity 49.0 cm/s Mitral E to MV E' Ratio 10.9 Mitral E to LV E' Lateral Ratio 10.9 Mitral E to LV E' Septal Ratio 11.0 TR Peak Velocity 254.0 cm/s TR Peak Gradient 25.8 mmHg TR Mean Velocity 181.3 cm/s TR Mean Gradient 16.9 mmHg TR Velocity Time Integral 111.0 cm TV Peak E Velocity 46.0 cm/s Right Atrial Pressure 3.0 mmHg Pulmonary Artery Systolic Pressu 28.8 mmHg PV Peak Velocity 79.0 cm/s RV Acceleration Time 0.1 s RV Ejection Time 0.3 s RV AcT/ET 0.3 FINDINGS Left Ventricle Normal left ventricular size and systolic function, EF 60 %. No regional wall motion abnormalities. Right Ventricle The right ventricle is normal in size and function. Right Atrium Mildly increased right atrial size. Left Atrium The interatrial septum appears to be bulging to the right. Moderately increased left atrial size. Mitral Valve Thickened mitral valve. Moderate mitral valve regurgitation. Aortic Valve Thickened aortic valve. Moderate aortic valve regurgitation. Tricuspid Valve Kppuxjdd-hr-nvzrra tricuspid valve regurgitation. Estimated pulmonary artery peak systolic pressure 29 mmHg Pulmonic Valve Mhoe-xr-gskffbwp pulmonary valve regurgitation. Pericardium Normal pericardium without effusion. Aorta Mild aortic dilatation of the sinotubular junction. 3.6 cm in diameter IVC The inferior vena cava appears normal. CONCLUSIONS Normal left ventricular size and systolic function, EF 60 %. No regional wall motion abnormalities. Moderately increased left atrial size. Mildly increased right atrial size. The interatrial septum appears to be bulging to the right. Thickened mitral valve. Moderate mitral valve regurgitation. Thickened aortic valve. Moderate aortic valve regurgitation. Zappdwdj-tu-ubprbp tricuspid valve regurgitation. Estimated pulmonary artery peak systolic pressure 29 mmHg. Vyfa-ey-dhahmiyo pulmonary valve regurgitation. Mild aortic dilatation of the sinotubular junction. 3.6 cm in diameter. There is no pericardial effusion. There are no intracardiac masses. Compared to the study from 01/26/2022, there may not be a significant change Dr Katya Munoz MD [facility] (Electronically Signed) Final Date: 01 February 2023 10:06 S
== END 2023-01-25 12:13 | disposition home or self-care (01) ==
LOC: RAD 12:17
PROVIDERS: PCP Internal Medicine; Visit Provider Internal Medicine Cardiovascular Disease
DX: R06.09 Other forms of dyspnea (principal); I05.9 Rheumatic mitral valve disease, unspecified
CPT/HCPCS: 93306

== ENCOUNTER 2023-03-12 18:48 | Emergency (ER) | payer MEDICARE, OTHER, SELFPAY ==
[2023-03-12 18:49] VITALS: BP 129/71; PULSE 62; RESP 16; TEMP 36.5; O2SAT 99; BMI 19.5
--- NOTE | 2023-03-12 18:57 | XRR_ITS ---
PROCEDURE INFORMATION: Exam: XR Chest Exam date and time: 03/12/2023 7:05 PM Age: 87 years old Clinical indication: Pain; Chest pressure; Additional info: Bradycardia TECHNIQUE: Imaging protocol: Radiologic exam of the chest. Views: 1 view. COMPARISON: CT angio chest [id number] 01/18/2023 4:09 PM FINDINGS: Lungs: Mild hazy density right lung base is suspected to be due to overlying breast tissue and patient rotation without definite consolidation. Pulmonary vascularity is within normal limits. Pleural spaces: Unremarkable. No pleural effusion. No pneumothorax. Heart/Mediastinum: There is cardiomegaly. Bones/joints: No acute abnormality. XR/XR chest 1V portable [id number] IMPRESSION: No acute findings. Mild density right lung base is probable overlying breast tissue.
--- NOTE | 2023-03-12 19:01 | ECG_ITS ---
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 Measurements Intervals [place] Rate: 59 P: 85 ME: 261 QRS: -42 QRSD: 142 T: -51 QT: 437 QTc: 434 Interpretive Statements SINUS BRADYCARDIA WITH SINUS ARRHYTHMIA WITH FIRST DEGREE AV BLOCK INDETERMINATE AXIS RIGHT BUNDLE BRANCH BLOCK [120+ ms QRS DURATION, UPRIGHT V1, 40+ ms S IN I/aVL/V4/V5/V6] MODERATE T-WAVE ABNORMALITY, CONSIDER INFERIOR ISCHEMIA [-0.1+ mV T-WAVE IN II/aVF] Compared to ECG 01/31/2022 11:19:38 Indeterminate axis now present Right bundle-branch block now present T-wave abnormality now present Intraventricular conduction delay no longer present Electronically Signed On 03-12-2023 23:06:22 CDT by Estevan Betts M.D. [id number]
[2023-03-12 19:19] VITALS: BP 129/71; PULSE 64; RESP 19; O2SAT 99
[2023-03-12 20:10] LABS: Partial Thromboplastin Time 20.5 SECONDS (23.9-36.7)
[2023-03-12] MEDS: sodium chloride 0.9% 1,000 ML 999 ML IV (20:28)
[2023-03-12 20:55] LABS: Troponin(5th) Baseline 24 ng/L (0-10)
--- NOTE | 2023-03-12 21:06 | ECG_ITS ---
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 Measurements Intervals [place] Rate: 66 P: 82 AK: 275 QRS: -30 QRSD: 142 T: -62 QT: 421 QTc: 444 Interpretive Statements SINUS RHYTHM WITH FIRST DEGREE AV BLOCK WITH OCCASIONAL SUPRAVENTRICULAR PREMATURE COMPLEXES BORDERLINE LEFT AXIS DEVIATION [QRS AXIS < -20] INTRAVENTRICULAR CONDUCTION DELAY [130+ ms QRS DURATION] Compared to ECG 03/12/2023 19:01:05 Intraventricular conduction delay now present Sinus bradycardia no longer present Sinus arrhythmia no longer present Indeterminate axis no longer present Right bundle-branch block no longer present T-wave abnormality no longer present Possible ischemia no longer present Electronically Signed On 03-12-2023 23:06:54 CDT by Estevan Betts M.D. [id number]
[2023-03-12 21:09] LABS: Basophils % 0.6 %; Eosinophils # 0.1 10^3/uL (0.0-0.8); Eosinophils % 1.2 %; Hematocrit 35.7 % (37.0-47.0); Hemoglobin 11.4 g/dL (11.5-15.3); Lymphocytes # 1.7 10^3/uL (0.8-4.8); Lymphocytes % 25.2 %; Mean Corpuscular HGB Conc 31.9 g/dL (30.0-36.0); Mean Corpuscular Hemoglobin 32.2 pg (28.0-34.0); Mean Corpuscular Volume 100.8 fl (81-99); Mean Platelet Volume 10.5 fL (7.4-10.4); Monocytes # 0.5 10^3/uL (0.2-0.9); Monocytes % 7.9 %; Neutrophils # 4.24 10^3/uL (1.8-7.7); Neutrophils % 64.8 %; Nucleated Red Blood Cells % 0 %; Platelet Count 145 10^3/cmm (130-400); Red Blood Count 3.54 10^6/uL (4.1-5.3); Red Cell Distribution Width 13.2 % (12.1-15.1); White Blood Count 6.6 10^3/uL (4.0-10.0)
[2023-03-12 21:10] LABS: Add Urine Microscopic? YES; Bilirubin Urine Neg (Negative); Blood Urine Neg (Negative); Glucose Urine UA Norm (Normal); Ketones Urine 1+ (Negative); Leukocyte Esterase Urine 1+ (Negative); Nitrate Urine Negative (Negative); Protein Urine Neg (Negative); Specific Gravity, Urine 1.015 (1.005-1.030); Urine Appearance Cloudy (CLEAR); Urine Color Yellow (Yellow); Urobilinogen Urine Norm (Negative); pH Urine 5 (5-7)
[2023-03-12 21:11] LABS: Bacteria Urine 3+ /hpf; RBC Urine 0-4 /hpf (0-2); Squamous Epithelial Cell Urine 15-25 /hpf (0-5)
[2023-03-12 21:14] VITALS: BP 129/71; PULSE 62; RESP 21; O2SAT 95
[2023-03-12 21:50] LABS: Troponin 5 2HR 22.32 ng/L (0-10)
[2023-03-12 21:51] LABS: Alanine Aminotransferase 14 U/L (0-33); Albumin Level 3.7 g/dL (3.5-5.2); Alkaline Phosphatase 30 U/L (35-105); Anion Gap 13.4 (5-19); Aspartate Amino Transferase 20 U/L (0-32); Blood Urea Nitrogen 17 mg/dL (8-23); Calcium 8.9 mg/dL (8.5-10.5); Carbon Dioxide 27 mmol/L (22-29); Chloride 98 mmol/L (98-107); Globulin 2.6 g/dL (1.3-4.6); Glucose 113 mg/dL (65-115); Magnesium 1.9 mg/dL (1.7-2.3); NT Pro B Type Natriuretic Pept 1578 pg/mL (0-450); Osmolality Calculated 280 mOsm/kg (285-295); Potassium 4.4 mmol/L (3.5-5.1); Sodium 134 mmol/L (136-145); Thyroid Stimulating Hormone 2.57 uIU/mL (0.27-4.20); Total Bilirubin 0.4 mg/dL (0.15-1.2); Total Protein 6.3 g/dL (6.6-8.7); Troponin 5 2HR Delta -1.68 ABS# (0-10)
--- NOTE | 2023-03-12 22:08 | ED_ITS ---
HPI - Altered Mental Status General: Chief Complaint: Altered Mental Status Stated Complaint: BRADYCARDIA Time Seen by Provider: 03/12/23 18:53 Source: patient History of Present Illness: 87-year-old female who was eating dinner at home with family. She had an episode of feeling extremely tired, nauseated and generally weak. She stated that she wanted to go to bed. She nearly passed out. She did not lose consciousness or collapse. The patient's son called EMS because of this. She feels improved currently. Evidently, bradycardia was found on the monitor on EMS arrival for which she was given a single dose of atropine with increase in her rate. MD complaint: decreased responsiveness and weakness Onset (ago): minute(s) Timing confirmed by: other Severity: moderate Context: history of similar presentation Associated symptoms: Reports other Treatments prior to arrival: other (Atropine) Review of Systems Const: Denies: fever(s) Eyes: Denies: change in vision ENMT: Denies: throat pain Card: Denies: chest pain, palpitations or irregular heart rhythm Resp: Denies: dyspnea, productive cough or non-productive cough GI: Reports: nausea; Denies: abdominal pain or vomiting [facility] ED PFSH: Medical History Accelerated hypertension Advanced age Aortic root dilatation Arthritis of facet joint of lumbar spine Benign essential HTN C. difficile diarrhea Chronic back pain greater than 3 months duration COVID-19 vaccine administered Moderna x 2 doses Dehydration Difficulty swallowing solids Displacement of lumbar disc with radiculopathy Dyslipidemia (high LDL; low HDL) Fibromyalgia Generalized osteoarthritis of multiple sites Generalized weakness History of recent stroke Irritable bowel syndrome Long-term use of high-risk medication Extended release morphine Normocytic anemia Opioid contract exists Osteoporosis Overactive bladder Polypharmacy Post laminectomy syndrome Spondylolisthesis, lumbar region Spondylosis of lumbosacral spine without myelopathy Stroke determined by clinical assessment 01/18/22 dysarthria Thoracic aortic aneurysm Tricuspid regurgitation Ventricular arrhythmia Surgical History History of lumbar laminectomy for spinal cord decompression [place] [place] S/P bladder repair S/P bunionectomy S/P hysterectomy S/P lumpectomy of breast S/P repair of vertebral fracture 08/2019- Dr. Cassidy [facility] T12 Status post lumbar surgery 01/14/09- Dr Borja [facility] PLIFF Family History Father Congestive heart disease CAD (coronary artery disease) Sister No problems noted. Mother CAD (coronary artery disease) Diabetes Dementia Family/Other Diabetes Other Heart disease Hyperlipidemia Hypertension Denies family history of Clotting disorder Chronic kidney disease (CKD) Suicide Anesthesia complication Bleeding disorder Lung disease Cancer Stroke Social History Smoking and tobacco status: former smoker Second hand smoke exposure: No Alcohol intake: never Substance/Drug Use: never Household members: spouse Marital status details: Spouse 10 years older than her Physical Exam Const: COMMON NORMALS: no acute distress and alert GENERAL APPEARANCE: frail appearing (Mildly); not ill appearing HENMT: COMMON NORMALS: normocephalic, atraumatic and Normal external nose present HEAD & SCALP: normocephalic and atraumatic NOSE: Normal external nose present Eye: COMMON NORMALS: Equal, round and reactive pupils present and EOMs intact bilaterally PUPIL: Yes Equal, round and reactive pupils present Neck/C-Spine: GENERAL: Yes trachea midline Chest: CHEST: Yes Symmetrical chest wall rise Resp: COMMON NORMALS: normal respiratory effort, No use of accessory muscles and clear to auscultation bilaterally AUSCULTATION: clear to auscultation bi laterally Cardio: COMMON NORMALS: regular rate and regular rhythm RATE: regular rate RHYTHM: regular rhythm GI: COMMON NORMALS: Normal to inspection, nondistended, normoactive bowel sounds present and Soft to palpation PALPATION: Yes Soft to palpation Extremity: COMMON NORMALS: no pedal edema Neuro: JAY COMA SCALE: document GCS findings Aurora coma scale eye opening: Spontaneous Aurora coma scale verbal response: Orientated Aurora coma scale motor response: Obey commands Aurora coma scale total score: 15 SENSORIUM/ORIENTATION: Yes alert COORDINATION/BALANCE: [id number] test normal and [id number] test normal SPEECH: speech normal SENSORY EXAM: Yes extremities (Intact) MOTOR EXAM: Pronator motor function not present COORDINATION: [id number] test normal and [id number]-sz-[id number] test normal Psych: COMMON NORMALS: mental status grossly normal and cooperative Course Vital Signs: Vital signs: Vital Signs Temperature 97.7 F 03/12/23 18:49 Pulse Rate 71 03/12/23 22:21 Respiratory Rate 16 03/12/23 22:21 Blood Pressure 144/73 03/12/23 22:21 Pulse Oximetry 98 03/12/23 22:21 Oxygen Delivery Me thod Room Air 03/12/23 22:21 Oxygen Flow Rate 3 03/12/23 19:19 Fraction of Inspir ed Oxygen 0 03/12/23 18:49 MDM - Altered Mental Status Medical Decision Making Patient appears at baseline. She is walked in the ER without problems. She is essentially asymptomatic. Unknown cause of near syncope. White blood cell count is 6.6. Hemoglobin 11.4. BMP is not remarkable. Troponin did not change from baseline at 2 hours. The patient does have evidence of urinary tract infection which will be treated. Chest x-ray is negative. She will be allowed discharge for outpatient follow-up to return for any concerning symptoms. Lab Data 03/12/23 20:58 03/12/23 20:58 Radiology Impressions Chest X-Ray 03/12/23 18:57 IMPRESSION: No acute findings. Mild density right lung base is probable overlying breast tissue. Laboratory Results WBC 6.6 10^3/uL (4.0-10.0) 03/12/23 20:58 Corrected WBC Cancelled 03/12/23 19:19 RBC 3.54 10^6/uL (4.1-5.3) L 03/12/23 20:58 Hgb 11.4 g/dL (11.5-15.3) L 03/12/23 20:58 Hct 35.7 % (37.0-47.0) L 03/12/23 20:58 MCV 100.8 fl (81-99) H 03/12/23 20:58 MCH 32.2 pg (28.0-34.0) 03/12/23 20:58 MCHC 31.9 g/dL (30.0-36.0) 03/12/23 20:58 RDW 13.2 % (12.1-15.1) 03/12/23 20:58 Plt Count 145 10^3/cmm (130-400) 03/12/23 20:58 MPV 10.5 fL (7.4-10.4) H 03/12/23 20:58 Gran % Cancelled 03/12/23 19:19 Neut % (Auto) 64.8 % 03/12/23 20:58 Lymph % (Auto) 25.2 % 03/12/23 20:58 Hutchinson % (Auto) 7.9 % 03/12/23 20:58 Eos % (Auto) 1.2 % 03/12/23 20:58 Baso % (Auto) 0.6 % 03/12/23 20:58 Neut # (Auto) 4.24 10^3/uL (1.8-7.7) 03/12/23 20:58 Lymph # (Auto) 1.7 10^3/uL (0.8-4.8) 03/12/23 20:58 Hutchinson # (Auto) 0.5 10^3/uL (0.2-0.9) 03/12/23 20:58 Eos # (Auto) 0.1 10^3/uL (0.0-0.8) 03/12/23 20:58 Baso # (Auto) 0.0 10^3/uL (0.0-0.1) 03/12/23 20:58 Absolute Gran (auto) Cancelled 03/12/23 19:19 Nucleated RBC % (auto) 0 % 03/12/23 20:58 Nucleated RBCs # 0.0 /100WBC 03/12/23 20:58 PT Cancelled 03/12/23 19:19 INR Cancelled 03/12/23 19:19 APTT Cancelled 03/12/23 19:19 Sodium 134 mmol/L (136-145) L 03/12/23 20:58 Potassium 4.4 mmol/L (3.5-5.1) 03/12/23 20:58 Chloride 98 mmol/L (98-107) 03/12/23 20:58 Carbon Dioxide 27 mmol/L (22-29) 03/12/23 20:58 Anion Gap 13.4 (5-19) 03/12/23 20:58 BUN 17 mg/dL (8-23) 03/12/23 20:58 Creatinine 1.0 mg/dL (0.5-0.9) H 03/12/23 20:58 GFR Calculation Not Reportable 03/12/23 20:58 Glucose 113 mg/dL (65-115) 03/12/23 20:58 Calculated Osmolality 280 mOsm/kg (285-295) L 03/12/23 20:58 Calcium 8.9 mg/dL (8.5-10.5) 03/12/23 20:58 Magnesium 1.9 mg/dL (1.7-2.3) 03/12/23 20:58 Total Bilirubin 0.4 mg/dL (0.15-1.2) 03/12/23 20:58 AST 20 U/L (0-32) 03/12/23 20:58 ALT 14 U/L (0-33) 03/12/23 20:58 Alkaline Phosphatase 30 U/L (35-105) L 03/12/23 20:58 Troponin T Baseline Cancelled 03/12/23 19:19 Troponin T 120 Minute 22.32 ng/L (0-10) H 03/12/23 20:58 Delta Troponin T -1.68 ABS# (0-10) L 03/12/23 20:58 NT-Pro-B Natriuret Pep 1578 pg/mL (0-450) H 03/12/23 20:58 Total Protein 6.3 g/dL (6.6-8.7) L 03/12/23 20:58 Albumin 3.7 g/dL (3.5-5.2) 03/12/23 20:58 Globulin 2.6 g/dL (1.3-4.6) 03/12/23 20:58 TSH 2.57 uIU/mL (0.27-4.20) 03/12/23 20:58 Urine Color Yellow (Yellow) 03/12/23 20:05 Urine Appearance Cloudy (CLEAR) A 03/12/23 20:05 Urine pH 5 (5-7) 03/12/23 20:05 Ur Specific Shaw 1.015 (1.005-1.030) 03/12/23 20:05 Urine Protein Neg (Negative) 03/12/23 20:05 Urine Glucose (UA) Norm (Normal) 03/12/23 20:05 Urine Ketones 1+ (Negative) H 03/12/23 20:05 Urine Blood Neg (Negative) 03/12/23 20:05 Urine Nitrate Negative (Negative) 03/12/23 20:05 Urine Bilirubin Neg (Negative) 03/12/23 20:05 Urine Urobilinogen Norm mg/dL (Negative) 03/12/23 20:05 Ur Leukocyte Esterase 1+ (Negative) H 03/12/23 20:05 Urine RBC 0-4 /hpf (0-2) H 03/12/23 20:05 Urine WBC 10-15 /hpf (0-5) H 03/12/23 20:05 Ur Squamous Epith Cells 15-25 /hpf (0-5) H 03/12/23 20:05 Amorphous Sediment Not Reportable 03/12/23 20:05 Urine Bacteria 3+ /hpf (NONE) H 03/12/23 20:05 Discharge Plan Discharge Patient Disposition: Home Clinical Impression: Bradycardia, Near syncope Condition: Stable Prescriptions: No Action cholecalciferol (vitamin D3) 5,000 unit capsule 5,000 unit PO QAM acetaminophen [Tylenol Arthritis Pain] 650 mg tablet extended release 1,300 mg PO BID gabapentin 800 mg tablet 800 mg PO TID duloxetine [Cymbalta] 20 mg capsule,delayed release(DR/EC) 20 mg PO QAM nitroglycerin [Nitrostat] 0.4 mg tablet, sublingual 0.4 mg SUBLINGUAL Q5M PRN (Reason: chest pain) 30 Days Qty: 30 0RF vancomycin 125 mg capsule 125 mg PO DIRECTED Adult 50 Plus Probiotic 4 billion cell capsule 4,000 mmu cells PO DAILY Rx Instructions: administer with a meal Benefiber Clear SF (dextrin) 3 gram/3.5 gram powder in packet 1 packet PO DAILY Rx Instructions: mix into at least 4 oz water or juice before administering isosorbide mononitrate 120 mg tablet extended release 24 hr 120 mg PO DAILY Qty: 90 1RF carvedilol 25 mg tablet 25 mg PO BID 90 Days Qty: 180 3RF Rx Instructions: must administer with a meal/food valsartan 320 mg tablet 320 mg PO QAM Qty: 90 3RF prednisone 50 mg tablet 50 mg PO TID Qty: 3 0RF Rx Instructions: on 01/18 1st tab at 2:30am, 2nd tab at 9:30am, 3rd tab at 2:30pm prior to procedure diphenhydramine HCl [Benadryl Allergy] 25 mg tablet 50 mg PO ONCE Qty: 2 0RF Rx Instructions: take 2 tabs 1 hour prior to procedure at 2:30pm pravastatin 80 mg tablet See Rx Instructions .ROUTE .COMPLEX Qty: 90 3RF Dose Instruction: Take 1 tablet by mouth once daily Rx Instructions: Take 1 tablet by mouth once daily oxybutynin chloride 10 mg tablet extended release 24hr 10 mg PO DAILY magnesium 250 mg Tablet 250 mg PO BEDTIME Calcium 600 + D(3) 1 tab PO BID Iron (ferrous sulfate) 325 mg (65 mg iron) tablet 325 mg PO DAILY Qty: 60 3RF Discharge Orders: Discharge ED (Routine); Ordered 03/12/23 Ordered By: Yusef Yu Referrals: Castro Hinson DO [Primary Care Provider] - Patient Instructions: Bradycardia (ED), Near Syncope (ED) Activity Restrictions/Additional Instructions: Monitor your heart rate closely for the next 48 hours. Follow-up with your doctor this week. Return for any repeated episodes of syncope or passing out, chest discomfort, shortness of breath, other concerning symptoms. Coding Level of Care Code ED Gut Carrier for Jensen Sinclair
[2023-03-12 22:21] VITALS: BP 144/73; PULSE 71; RESP 16; O2SAT 98
--- NOTE | 2023-03-12 22:22 | PC.NURSE ---
PT HAD AN ARRHYTHMIA ON 03/12/[address] GONZALEZ WAS NOTIFIED OF RUN AND NO FURTHER ORDERS WERE GIVEN
--- NOTE | 2023-03-12 23:30 | PC.NURSE ---
Home had been contcted to bring walker for pt. Nurse was not aware of this and dc'd pt home. HOME was contacted and will get walker to pt at her home in the AM.
== END 2023-03-12 23:29 | disposition home or self-care (01) ==
PROVIDERS: Emergency Provider Emergency Medicine; PCP Internal Medicine
DX: R00.1 Bradycardia, unspecified (principal); R55 Syncope and collapse; Z87.891 Personal history of nicotine dependence; I10 Essential (primary) hypertension; E78.5 Hyperlipidemia, unspecified; Z86.73 Personal history of transient ischemic attack (TIA), and cerebral infarction without residual deficits
CPT/HCPCS: 36415; 71045; 80053; 81001; 83735; 83880; 84443; 84484; 85025; 85610; 85730; 93005; 96360; 99285; J7030

== ENCOUNTER 2023-03-23 14:21 | Oncology outpatient (recurring) (ONCR) | payer MEDICARE, OTHER, SELFPAY ==
[2023-03-23] MEDS: denosumab 60 mg SDV SUBCUT (15:11)
== END 2023-04-21 23:59 | disposition home or self-care (01) ==
PROVIDERS: PCP Internal Medicine; Visit Provider Internal Medicine Medical Oncology
DX: M81.0 Age-related osteoporosis without current pathological fracture (principal)
CPT/HCPCS: 96372; J0897

== ENCOUNTER → 2023-07-12 10:05 | Outpatient (BNVA) | payer MEDICARE, OTHER, SELFPAY | PROVIDERS: PCP Internal Medicine; Visit Provider Internal Medicine Cardiovascular Disease | DX: I10 Essential (primary) hypertension (principal); I71.20 Thoracic aortic aneurysm, without rupture, unspecified; I36.1 Nonrheumatic tricuspid (valve) insufficiency; I49.8 Other specified cardiac arrhythmias; Z87.891 Personal history of nicotine dependence | CPT/HCPCS: 99214 ==

== ENCOUNTER 2023-10-05 13:30 | Oncology outpatient (recurring) (ONCR) | payer MEDICARE, OTHER, SELFPAY ==
[2023-10-05 14:14] VITALS: BP 154/81; PULSE 60; RESP 16; TEMP 36.8; O2SAT 95
[2023-10-05] MEDS: denosumab 60 mg SDV SUBCUT (14:19)
== END 2023-10-22 23:59 | disposition home or self-care (01) ==
LOC: ONCMED 13:30
PROVIDERS: PCP Internal Medicine; Visit Provider Internal Medicine Medical Oncology
DX: M81.0 Age-related osteoporosis without current pathological fracture (principal)
CPT/HCPCS: 96377; J0897

== ENCOUNTER → 2024-02-20 10:51 | Outpatient (BNVA) | payer MEDICARE, OTHER, SELFPAY | PROVIDERS: PCP Internal Medicine; Visit Provider Nurse Practitioner Family | DX: I71.20 Thoracic aortic aneurysm, without rupture, unspecified (principal); I10 Essential (primary) hypertension; Z87.891 Personal history of nicotine dependence | CPT/HCPCS: 99213 ==

== ENCOUNTER 2024-05-28 13:27 | Oncology outpatient (recurring) (ONCR) | payer MEDICARE, OTHER, SELFPAY ==
[2024-05-28] MEDS: denosumab 60 mg SDV SUBCUT (13:51)
[2024-05-28 14:51] VITALS: BP 187/78; PULSE 51; RESP 16; TEMP 36.5; O2SAT 96
== END 2024-06-22 23:55 | disposition home or self-care (01) ==
PROVIDERS: PCP Internal Medicine; Visit Provider Internal Medicine
DX: Z79.899 Other long term (current) drug therapy; M81.0 Age-related osteoporosis without current pathological fracture
CPT/HCPCS: 96372; J0897

== ENCOUNTER 2024-06-21 08:44 | Outpatient (CLI) | payer MEDICARE, OTHER, SELFPAY ==
--- NOTE | 2024-06-21 08:55 | XR_ITS ---
WS: [email or web address] Exam: XR hip BI 3-4V wo/w [place] [id number] Date/Time of Exam: 06/21/2024 9:04 AM Reason For Exam: BILATERAL HIP PAIN No fracture or dislocation of either hip. There is moderate degenerative change of both hips symmetri joe [id number]. There are calcifications along the bilateral greater trochanters that might be seco ndary to bursitis. The pelvis is intact. 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 XR/XR hip BI 3-4V wo/w pel [id number] IMPRESSION: 1. Moderate DJD of both hips. No fracture. 2. Calcifications noted along the superior aspects of the greater trochanters t hat might be seen with calcific bursitis.
--- NOTE | 2024-06-21 08:55 | XR_ITS ---
WS: [email or web address] Exam: XR sacrum coccyx min 2V [id number] Date/Time of Exam: 06/21/2024 9:04 AM Reason For Exam: SACROCOCCYGEAL DISORDER No sacrococcygeal fracture or dislocation. No sign of bone destruction. Adjacent soft tissues are unr emarkable. Moderately advanced DJD at the bilateral SI joints. XR/XR sacrum coccyx min 2V [id number] IMPRESSION: 1. Intact sacrum and coccyx. No fracture or bone destruction. 2. Moderately advanced bilateral SI joint DJD.
--- NOTE | 2024-06-21 08:55 | XR_ITS ---
WS: [email or web address] Exam: XR lumbar spine min 4V [id number] Date/Time of Exam: 06/21/2024 9:04 AM Reason For Exam: POSTLAMINECTOMY SYNDROME L2-L5 surgical fusion. Left-sided pedicle screws at L2 and L4 with interconnecting mirian. Advanced dege nerative change of the lumbar spine and thoracolumbar dextroscoliosis. Straightening. Old compression fracture of T12 treated with vertebroplasty. Marked disc degeneration at all levels. Facet arthropat hy at all levels. XR/XR lumbar spine min 4V [id number] IMPRESSION: 1. Ossified fusion from L2-L5 with hardware as detailed above. The fusion appea rs to be stable in appearance. 2. Advanced degenerative changes and thoracolumbar scoliosis. Additional chroni c findings as above.
== END 2024-06-21 08:45 | disposition home or self-care (01) ==
LOC: RAD 08:50
PROVIDERS: PCP Internal Medicine; Visit Provider Anesthesiology Pain Medicine
DX: M96.1 Postlaminectomy syndrome, not elsewhere classified (principal); M16.0 Bilateral primary osteoarthritis of hip; M43.26 Fusion of spine, lumbar region; M51.36 Other intervertebral disc degeneration, lumbar region; M41.35 Thoracogenic scoliosis, thoracolumbar region; M61.9 Calcification and ossification of muscle, unspecified
CPT/HCPCS: 72110; 72220; 73522

== ENCOUNTER 2024-06-28 07:58 | Emergency (ER) | payer MEDICARE, OTHER, SELFPAY ==
[2024-06-28] VITALS (10 sets, daily range): BP systolic 105–237; BP diastolic 62–97; PULSE 75–85; RESP 13–23; TEMP 36.8; O2SAT 93–99; BMI 18.5
--- NOTE | 2024-06-28 08:13 | ECG_ITS ---
[facility] Test Date: 2024-06-28 Pat Name: Dodie Jaffe Department: Room: Gender: Female Corporate Communications Intern: : 1935 Requested By: Anthony Bosch Order Number: [id number] Delmi MD: Katya Munoz M.D. Measurements Intervals [place] Rate: 78 P: 73 OR: 254 QRS: 11 QRSD: 134 T: -36 QT: 399 QTc: 456 Interpretive Statements Sinus rhythm with a first-degree AV block. Occasional PVCs and PACs. POSSIBLE LEFT ATRIAL ENLARGEMENT [-0.1mV P-WAVE IN V1/V2] INTRAVENTRICULAR CONDUCTION DELAY [130+ ms QRS DURATION] LEFT VENTRICULAR HYPERTROPHY AND ST-T CHANGE [VOLTAGE CRITERIA PLUS ST/T ABNORMALITY] POSSIBLE SEPTAL MYOCARDIAL INFARCTION , OF INDETERMINATE AGE [30 ms Q WAVE IN V1/V2] Compared to ECG 03/12/2023 21:06:57 Left ventricular hypertrophy now present ST (T wave) deviation now present Myocardial infarct finding now present Electronically Signed On 06-28-2024 17:03:09 CDT by Katya Munoz M.D. [email or web address] Analyticsyalobusha general [email or web address] [email or web address] hospital [id number]
--- NOTE | 2024-06-28 08:13 | XR_ITS ---
WS: [email or web address] Examination: XR chest 1V portable [id number] Reason for Exam: dyspnea/cough Date: 06/28/2024 Comparison: 03/12/2023 Findings: The heart is enlarged. The aorta is calcified with atherosclerotic change The lungs are hyperinflated. Chronic changes are present with 5 the lateral basilar scarring. There is no evidence of pulmonary edema or large effusion. There is a faint opacity identified along the periphery of the right upper lobe. XR/XR chest 1V portable [id number] Impression: There is cardiomegaly without failure A developing right-sided pneumonia is suspected.
--- NOTE | 2024-06-28 08:18 | ED_ITS ---
HPI - General Adult 2 General: Chief complaint: Nausea/Vomiting/Diarrhea Stated complaint: high bp sent from [facility] Time Seen by Provider: 06/28/24 08:02 History of Present Illness: 88-year-old female presents emergency ro om with elevated blood pressure also complaining of right ankle pain was seen earlier in the week with leg pain but did not have x-rays of the ankle. She cannot recall any particular trauma or injury. She has had elevated blood pressure. Her family members with her states he has noted that she has been slightly altered at times. She has not taken any of her blood pressure medications this morning. She denies any chest or abdominal pain she had a couple episodes of loose stools this morning. Associated symptoms: Deny chest pain, dyspnea or rash Related Data Home Medications Medication Instructions Recorded Confirmed acetaminophen 650 mg 1,300 mg PO QAM 10/28/19 06/28/24 tablet,extended release (Tylenol Arthritis Pain) cholecalciferol (vitamin D3) 125 5,000 unit PO QAM 10/28/19 06/28/24 mcg (5,000 unit) capsule gabapentin 800 mg tablet 800 mg PO BID 12/30/20 06/28/24 magnesium 250 mg tablet 250 mg PO BEDTIME 01/26/22 06/28/24 lactobacillus combination no.9 4 4,000 mmu cells PO DAILY 08/25/22 06/28/24 billion cell capsule (Adult 50 Plus Probiotic) calcium carbonate 600 mg-vitamin 1 tab PO BID 06/28/24 06/28/24 D3 5 mcg (200 unit) tablet carvedilol 25 mg tablet 25 mg PO BID 06/28/24 06/28/24 isosorbide mononitrate 120 mg 120 mg PO DAILY 06/28/24 06/28/24 tablet,extended release 24 hr meloxicam 7.5 mg tablet 7.5 mg PO DAILY 06/28/24 06/28/24 morphine 15 mg immediate release 7.5 mg PO .Q4-6H PRN Pain 06/28/24 06/28/24 tablet pravastatin 80 mg tablet 80 mg PO DAILY 06/28/24 06/28/24 Previous Rx's Medication Instructions Recorded nitroglycerin 0.4 mg sublingual See Rx Instructions .Route 10/17/23 tablet .COMPLEX #30 tabs spironolactone 25 mg tablet 12.5 mg (1/2 x 25 mg) PO DAILY #30 02/20/24 tabs valsartan 320 mg tablet 320 mg PO QAM #90 tabs 04/12/24 amlodipine 2.5 mg tablet 2.5 mg PO DAILY #20 tabs 06/28/24 hydralazine 10 mg tablet 10 mg PO BID #20 tabs 06/28/24 Allergies Allergy/AdvReac Type Severity Reaction Status Date / Time aspirin AdvReac ABDOMINAL Verified 02/20/24 10:56 PAIN iodine AdvReac UNKNOWN Verified 02/20/24 10:56 metoprolol [From Toprol XL] AdvReac UNKNOWN Verified 02/20/24 10:56 tramadol AdvReac UNKNOWN Verified 02/20/24 10:56 Review of Systems 2 Const: Denies: fever(s) or chills Card: Denies: chest pain Resp: Denies: dyspnea GI: Denies: abdominal pain : Denies: dysuria, urinary frequency or urinary urgency Musc: Denies: neck pain or back pain Skin/Breast: Denies: rash PFSH ED 2 PFSH: Medical History Fibromyalgia C. 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 [place] [id number] History of lumbar [place] for [place] cord decompression [place] [place] Status post lumbar surgery 01/14/09- Dr Borja [facility] Family History Father Congestive heart failure (CHF) CAD (coronary artery disease) Sister No problems noted. Mother CAD (coronary artery disease) Diabetes Dementia Family/Other Diabetes Other Heart disease Hyperlipidemia Hypertension Denies family history of Clotting disorder Chronic kidney disease (CKD) Suicide Anesthesia complication Bleeding disorder Lung disease Cancer Stroke Social History Smoking and tobacco/nicotine status: former use of tobacco/nicotine Second hand smoke exposure: No Alcohol intake: never Substance/Drug Use: never Household members: spouse Marital status details: Spouse 10 years older than her Physical Exam 2 Const: GENERAL APPEARANCE: cooperative and comfortable O RIENTATION/CONSCIOUSNESS: Yes awake, Yes oriented to person, Yes oriented to place and Yes oriented to time HENMT: COMMON NORMALS: normocephalic, atraumatic and hearing grossly normal bilaterally HEAD & SCALP: normocephalic and atraumatic Resp: COMMON NORMALS: normal respiratory effort, No retractions, No use of accessory muscles and clear to auscultation bilaterally AUSCULTATION: clear to auscultation bilaterally Cardio: COMMON NORMALS: regular rate, regular rhythm and No murmurs present (Cardio) RATE: regular rate RHYTHM: regular rhythm GI: COMMON NORMALS: Soft to palpation and No hepatosplenomegaly present A USCULTATION: Yes normoactive bowel sounds PALPATION: Yes Soft to palpation, No Tenderness to palpation present (GI), No Guarding due to palpation present (GI) and Yes No hepatosplenomegaly present Extremity: COMMON NORMALS: normal to inspection, capillary refill normal, no clubbing, cyanosis or edema, no calf tenderness and no pedal edema Neuro: SENSORIUM/ORIENTATION: Yes oriented to person, Yes oriented to place and Yes oriented to time OTHER: No focal or lateralizing neurologic deficits cranial nerves II to XII grossly intact. Extremities intact upper and lower with no weakness in either the arms or the legs. Normal facial symmetry. Skin: COMMON NORMALS: no rashes or lesions noted GENERAL SKIN EXAM: no rashes or lesions noted Course 2 Vital Signs: Vital signs: Vital Signs Temperature 98.3 F 06/28/24 08:19 Pulse Rate 78 06/28/24 12:02 Respiratory Rate 23 H 06/28/24 12:02 Blood Pressure 144/80 06/28/24 12:02 Pulse Oximetry 97 06/28/24 12:02 Oxygen Delivery Me thod Room Air 06/28/24 08:19 MDM - General Adult Medical Decision Making Transiently patient had some hypotension and then resolved now blood pressure has been good after receiving her regular oral medications markedly hypertensive prior to that. Will discharge her home went through her med list closely she is maxed out on multiple medications recommend adding back to medications hydralazine and amlodipine. They are listed on her allergy list of ultimately allergies associated with these are side effects previously she been on hydralazine up to 75 and 25 mg 3 times a day and recommended that she restart on 10 mg twice a day. Amlodipine caused significant swelling recommend that she restart on that at 2.5 mg once a day. Discussed with him that those were on her allergy list previously but the associated complication is truly a side effect not an actual allergy. Nevertheless this should be watched closely and she should recheck with her primary care doctor early next week to reevaluate her blood pressure. Son was also quite concerned about anxiety issues she was having and sometimes some confusion some of this may be related to her blood pressure may also be she is developing some cognitive issues he has noticed quite a bit of forgetfulness and severe anxiety. Recommended follow-up with that with her primary care doctor. There is no sign of acute neurologic deficit on exam Lab Data 06/28/24 09:28 06/28/24 09:02 Radiology Impressions Chest X-Ray 06/28/24 08:13 Impression: There is cardiomegaly without failure A developing right-sided pneumonia is suspected. Head CT 06/28/24 08:35 IMPRESSION: 1. No acute intracranial hemorrhage or edema. 2. Moderate volume loss cerebellum and cerebrum with chronic microvascular ischemic changes. Small vessel disease does appear to have slightly increased since 2021. Ankle X-Ray 06/28/24 08:47 Impression: No acute bony abnormality. Laboratory Results WBC 6.84 10^3/uL (3.29-11.43) 06/28/24 09:28 RBC 4.55 10^6/uL (3.85-5.65) 06/28/24 09:28 Hgb 14.80 g/dL (11.27-16.99) 06/28/24 09:28 Hct 44.1 % (36-47) 06/28/24 09: MCV 96.9 fl (85-98) 06/28/24 09: MCH 32.5 pg (27-33) 06/28/24 09: MCHC 33.6 g/dL (30-55) 06/28/24 09: RDW 13.6 % (12.1-15.1) 06/28/24: Plt Count 238 10^3/cmm (157-399) 06/28/24 09: MPV 10.5 fL (7.4-10.4) H 06/28/24 09: Neut % (Auto) 69.5 % 06/28/24 09: Lymph % (Auto) 21.6 % 06/28/24 09: [place] % (Auto) 7.6 % 06/28/24: Eos % (Auto) 0.4 % 06/28/24: Baso % (Auto) 0.6 % 06/28/24 09: Neut # (Auto) 4.75 10^3/uL (1.8-7.7) 06/28/24 09: Lymph # (Auto) 1.5 10^3/uL (0.8-4.8) 06/28/24: [place] # (Auto) 0.5 10^3/uL (0.2-0.9) 06/28/24 09: Eos # (Auto) 0.0 10^3/uL (0.0-0.8) 06/28/24: Baso # (Auto) 0.0 10^3/uL (0.0-0.1) 06/28/24: Nucleated RBC % (auto) 0 % 06/28/24: Nucleated RBCs # 0.0 /100WBC 06/28/24: Sodium 135 mmol/L (136-145) L 06/28/24 09:02 Potassium 4.0 mmol/L (3.5-5.1) 06/28/24 09: Chloride 95 mmol/L (98-107) L 06/28/24 09:02 Carbon Dioxide 25 mmol/L (22-29) 06/28/24 09:02 Anion Gap 19.0 (5-19) 06/28/24 09:02 BUN 16 mg/dL (8-23) 06/28/24 09:02 Creatinine 0.7 mg/dL (0.5-0.9) 06/28/24 09:02 GFR Calculation Not Reportable 06/28/24 09:02 Glucose 124 mg/dL (65-115) H 06/28/24 09:02 Calculated Osmolality 283 mOsm/kg (285-295) L 06/28/24 09:02 Calcium 9.5 mg/dL (8.5-10.5) 06/28/24 09:02 Total Bilirubin 0.8 mg/dL (0.15-1.2) 06/28/24 09:02 AST 21 U/L (0-32) 06/28/24 09:02 ALT 16 U/L (0-33) 06/28/24 09:02 Alkaline Phosphatase 45 U/L (35-105) 06/28/24 09:02 Total Protein 8.5 g/dL (6.6-8.7) 06/28/24 09:02 Albumin 4.7 g/dL (3.5-5.2) 06/28/24 09:02 Globulin 3.8 g/dL (1.3-4.6) 06/28/24 09:02 Urine Color Yellow (Yellow) 06/28/24 09:57 Urine Appearance Cloudy (CLEAR) A 06/28/24 09:57 Urine pH 7.0 (5-7) 06/28/24 09:57 Ur Specific [place] 1.015 (1.005-1.030) 06/28/24 09:57 Urine Protein 3+ (Negative) A 06/28/24 09:57 Urine Glucose (UA) Negative (Normal) 06/28/24 09:57 Urine Ketones Negative (Negative) 06/28/24 09:57 Urine Blood 1+ (Negative) A 06/28/24 09:57 Urine Nitrate Negative (Negative) 06/28/24 09:57 Urine Bilirubin Negative (Negative) 06/28/24 09:57 Urine Urobilinogen 1.0 mg/dL (Negative) 06/28/24 09:57 Ur Leukocyte Esterase Negative (Negative) 06/28/24 09:57 Urine RBC None /hpf (0-2) 06/28/24 09:57 Urine WBC 5-10 /hpf (0-5) H 06/28/24 09:57 Ur Squamous Epith Cells None /hpf (0-5) 06/28/24 09:57 Amorphous Sediment Not Reportable 06/28/24 09:57 Urine Bacteria 4+ /hpf (NONE) H 06/28/24 09:57 All radiology interpretation(s) finalized by discharge Discharge Plan Discharge Patient Disposition: Home Clinical Impression: Benign essential HTN, Displacement of lumbar disc with radiculopathy Condition: Stable Prescriptions: New hydralazine 10 mg tablet 10 mg PO BID Qty: 20 0RF amlodipine 2.5 mg tablet 2.5 mg PO DAILY Qty: 20 0RF No Action cholecalciferol (vitamin D3) 5,000 unit capsule 5,000 unit PO QAM acetaminophen [Tylenol Arthritis Pain] 650 mg tablet extended release 1,300 mg PO QAM gabapentin 800 mg tablet 800 mg PO BID spironolactone 25 mg tablet 12.5 mg PO DAILY Qty: 30 4RF Adult 50 Plus Probiotic 4 billion cell capsule 4,000 mmu cells PO DAILY Rx Instructions: administer with a meal nitroglycerin 0.4 mg tablet, sublingual See Rx Instructions .ROUTE .COMPLEX Qty: 30 0RF Dose Instruction: TAKE 1 TABLET UNDER THE TONGUE q5m NEEDED FOR FOR CHEST PAIN FOR 30 DAYS Rx Instructions: TAKE 1 TABLET UNDER THE TONGUE q5m NEEDED FOR FOR CHEST PAIN FOR 30 DAYS valsartan 320 mg tablet 320 mg PO QAM Qty: 90 3RF magnesium 250 mg Tablet 250 mg PO BEDTIME Calcium + D 600 mg-5 mcg (200 unit) Tablet 1 tab PO BID carvedilol 25 mg tablet 25 mg PO BID isosorbide mononitrate 120 mg tablet extended release 24 hr 120 mg PO DAILY pravastatin 80 mg tablet 80 mg PO DAILY morphine 15 mg tablet 7.5 mg PO .Q4-6H PRN (Reason: Pain) meloxicam 7.5 mg tablet 7.5 mg PO DAILY Discharge Orders: Discharge ED (Routine); Ordered 06/28/24 Ordered By: Anthony Balderas Referrals: Castro Hinson, [Primary Care Provider] - Patient Instructions: Opioid Safety, Pain Management Activity Restrictions/Additional Instructions: [facility]. It is very important that you follow up as instructed or that you return to the Emergency Department should you have concerns or if your condition changes or worsens in any way. Follow-up with your blood pressure within the next 3 to 5 days Coding Level of Care Code ED Tool Adjuster for Jensen Sinclair
--- NOTE | 2024-06-28 08:35 | CT_ITS ---
WS: [id number] CT HEAD NONCONTRAST HISTORY: elevated BP, AMS TECHNIQUE: Contiguous axial imaging performed through the brain in 2.5 mm imaging. Bone and soft tiss ue windows. Sagittal and coronal reformats reviewed. All CT scans at [place] use at least one of these dose optimization techniques: automated exposure control; mA and/or kV adjustment per pa tient size (includes targeted exams where dose is matched to clinical indication); or iterative recon struction. DLP: 1931.44 mGy.cm COMPARISON: 01/26/2022 Moderate volume loss with atrophy and advanced small vessel ischemic disease. Mild progression of chr onic microvascular disease since 2021. No acute blood products. Moderate cerebellar atrophy. Ventricles: Mildly prominent ventricles and extra-axial spaces on the basis of atrophy. No inferior displacement of the cerebellar tonsils. Paranasal sinuses: As visualized are clear. Mastoid air cells: Well pneumatized. Calvarium and scalp: Skull is intact with no soft tissue edema or swelling. CT/CT head wo con* [id number] IMPRESSION: 1. No acute intracranial hemorrhage or edema. 2. Moderate volume loss cerebellum and cerebrum with chronic microvascular isc hemic changes. Small vessel disease does appear to have slightly increased sinc e 2021.
--- NOTE | 2024-06-28 08:47 | XR_ITS ---
WS: [id number] Examination: XR ankle RT min 3V* [id number] Reason for Exam: pain Date: 06/28/2024 Comparison: None Findings: There is no significant soft tissue swelling The bone density is mildly diminished. There is no destruction There is no fracture or dislocation The ankle mortise is intact. XR/XR ankle RT min 3V* [id number] Impression: No acute bony abnormality.
[2024-06-28] MEDS: isosorbide mononitrate ER 60 mg Tablet 120 MG PO (09:14)
[2024-06-28] MEDS: carvedilol 25 mg Tablet PO (09:14)
[2024-06-28] MEDS: losartan 50 mg Tablet 100 MG PO (09:14)
[2024-06-28] MEDS: spironolactone 25 mg Tablet PO (09:16)
[2024-06-28 09:27] LABS: Alanine Aminotransferase 16 U/L (0-33); Albumin Level 4.7 g/dL (3.5-5.2); Alkaline Phosphatase 45 U/L (35-105); Aspartate Amino Transferase 21 U/L (0-32); Blood Urea Nitrogen 16 mg/dL (8-23); Calcium 9.5 mg/dL (8.5-10.5); Carbon Dioxide 25 mmol/L (22-29); Chloride 95 mmol/L (98-107); Creatinine Clr Calc Pharmacy 40.2214; Globulin 3.8 g/dL (1.3-4.6); Glucose 124 mg/dL (65-115); Osmolality Calculated 283 mOsm/kg (285-295); Sodium 135 mmol/L (136-145); Total Bilirubin 0.8 mg/dL (0.15-1.2); Total Protein 8.5 g/dL (6.6-8.7)
[2024-06-28 09:38] LABS: Basophils % 0.6 %; Eosinophils % 0.4 %; Hematocrit 44.1 % (36-47); Lymphocytes # 1.5 10^3/uL (0.8-4.8); Lymphocytes % 21.6 %; Mean Corpuscular HGB Conc 33.6 g/dL (30-55); Mean Corpuscular Hemoglobin 32.5 pg (27-33); Mean Corpuscular Volume 96.9 fl (85-98); Mean Platelet Volume 10.5 fL (7.4-10.4); Monocytes # 0.5 10^3/uL (0.2-0.9); Monocytes % 7.6 %; Neutrophils # 4.75 10^3/uL (1.8-7.7); Neutrophils % 69.5 %; Nucleated Red Blood Cells % 0 %; Platelet Count 238 10^3/cmm (157-399); Red Blood Count 4.55 10^6/uL (3.85-5.65); Red Cell Distribution Width 13.6 % (12.1-15.1); White Blood Count 6.84 10^3/uL (3.29-11.43)
[2024-06-28 10:13] LABS: Charge for UA Resulting for Rev
[2024-06-28] MEDS: hyDRALAzine 20 mg/mL INJ 1 mL 10 MG IVP (10:16)
[2024-06-28 10:21] LABS: Bilirubin Urine Negative (Negative); Blood Urine 1+ (Negative); Glucose Urine UA Negative (Normal); Ketones Urine Negative (Negative); Leukocyte Esterase Urine Negative (Negative); Nitrate Urine Negative (Negative); Protein Urine 3+ (Negative); Specific Gravity, Urine 1.015 (1.005-1.030); Urine Appearance Cloudy (CLEAR); Urine Color Yellow (Yellow)
[2024-06-28 10:35] LABS: Add Urine Culture? Yes; Bacteria Urine 4+ /hpf; UA Manual Slide Review YES
[2024-06-28] MEDS: sodium chloride 0.9% 500 ML 999 ML IV (10:46)
--- NOTE | 2024-06-28 13:33 | PC.PHAR ---
Pt was unsure of some of her medications. Verified with [facility], all her current medications. Pt no longer taking Cymbalta 20 mg last filled April last year. No longer taking iron tablets and finished Vancomycin 125mg from Mar 06 2024
[2024-06-28] MEDS: ondansetron 2 mg/ML SDV 2 mL 4 MG IVP (14:15)
== END 2024-06-28 14:15 | disposition home or self-care (01) ==
PROVIDERS: Emergency Provider Family Medicine; PCP Internal Medicine
DX: M51.16 Intervertebral disc disorders with radiculopathy, lumbar region (principal); I10 Essential (primary) hypertension; Z87.891 Personal history of nicotine dependence; Z86.73 Personal history of transient ischemic attack (TIA), and cerebral infarction without residual deficits; E78.5 Hyperlipidemia, unspecified
CPT/HCPCS: 70450; 71045; 73610; 80053; 81003; 81015; 85025; 87086; 93005; 96374; 96375; 99285; J0360; J2405; J7040

== ENCOUNTER 2024-07-23 11:41 | Emergency (ER) | payer MEDICARE, OTHER, SELFPAY ==
[2024-07-23] VITALS (7 sets, daily range): BP systolic 129–172; BP diastolic 60–79; PULSE 57–74; RESP 16–17; TEMP 37.1; O2SAT 94–98; BMI 18.8
--- NOTE | 2024-07-23 11:47 | ECG_ITS ---
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 Measurements Intervals [place] Rate: 60 P: 77 AL: 288 QRS: 5 QRSD: 133 T: 0 QT: 423 QTc: 423 Interpretive Statements SINUS RHYTHM WITH FIRST DEGREE AV BLOCK INTRAVENTRICULAR CONDUCTION DELAY [130+ ms QRS DURATION] SEPTAL MYOCARDIAL INFARCTION , OF INDETERMINATE AGE [40+ ms Q WAVE IN V1/V2] Compared to ECG 06/28/2024 08:15:48 First degree AV block now present Ventricular premature complex(es) no longer present Left ventricular hypertrophy no longer present ST (T wave) deviation no longer present Myocardial infarct finding still present Electronically Signed On 07-23-2024 16:24:16 CDT by Estevan Betts M.D. [id number]
--- NOTE | 2024-07-23 12:00 | ED_ITS ---
HPI - Syncope 2 General: Chief Complaint: Syncope Stated Complaint: syncope Time Seen by Provider: 07/23/24 11:43 Source: patient and EMS Mode of arrival: EMS Limitations: no limitations History of Present Illness: 88-year-old female who states she starte d taking a sleeping medication last night was the first night she had taken it she also taken a melatonin family called EMS this morning so he states that so they were having a hard time getting her to wake up. Patient is now awake and alert she states she feels a little groggy but has no other complaints no focal deficits Associated symptoms: Deny abdominal pain, chest pain, fever(s), headache(s) or nausea Related Data Home Medications Medication Instructions Recorded Confirmed acetaminophen 650 mg 1,300 mg PO QAM 10/28/19 07/23/24 tablet,extended release (Tylenol Arthritis Pain) cholecalciferol (vitamin D3) 125 5,000 unit PO QAM 10/28/19 07/23/24 mcg (5,000 unit) capsule gabapentin 800 mg tablet 800 mg PO BID 12/30/20 07/23/24 lactobacillus combination no.9 4 4,000 mmu cells PO DAILY 08/25/22 07/23/24 billion cell capsule (Adult 50 Plus Probiotic) calcium carbonate 600 mg-vitamin 1 tab PO BID 06/28/24 07/23/24 D3 5 mcg (200 unit) tablet carvedilol 25 mg tablet 25 mg PO BID 06/28/24 07/23/24 isosorbide mononitrate 120 mg 120 mg PO DAILY 06/28/24 07/23/24 tablet,extended release 24 hr meloxicam 7.5 mg tablet 7.5 mg PO DAILY 06/28/24 07/23/24 morphine 15 mg immediate release 7.5 mg PO .Q4-6H PRN Pain 06/28/24 07/23/24 tablet pravastatin 80 mg tablet 80 mg PO DAILY 06/28/24 07/23/24 Previous Rx's Medication Instructions Recorded nitroglycerin 0.4 mg sublingual See Rx Instructions .Route 10/17/23 tablet .COMPLEX #30 tabs spironolactone 25 mg tablet 12.5 mg (1/2 x 25 mg) PO DAILY #30 02/20/24 tabs valsartan 320 mg tablet 320 mg PO QAM #90 tabs 04/12/24 hydralazine 10 mg tablet 10 mg PO BID #20 tabs 06/28/24 cephalexin 500 mg capsule 500 mg PO TID 7 days #21 caps 07/23/24 Allergies Allergy/AdvReac Type Severity Reaction Status Date / Time aspirin AdvReac ABDOMINAL Verified 02/20/24 10:56 PAIN iodine AdvReac UNKNOWN Verified 02/20/24 10:56 metoprolol [From Toprol XL] AdvReac UNKNOWN Verified 02/20/24 10:56 tramadol AdvReac UNKNOWN Verified 02/20/24 10:56 Review of Systems 2 Const: Reports: fatigue; Denies: fever(s), chills, body aches or change in appetite ENMT: Denies: throat pain or dental pain Card: Denies: chest pain Resp: Denies: dyspnea GI: Denies: abdominal pain, nausea, vomiting or diarrhea Musc: Denies: neck pain or back pain Skin/Breast: Denies: rash Neuro: Denies: headache(s) PFSH ED 2 PFSH: Medical History Fibromyalgia C. 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 [facility] [place] [id number] History of lumbar laminectomy for spinal cord decompression [facility] [place] Status post lumbar surgery 01/14/09- Dr Borja [facility] Family History Father Congestive heart failure (CHF) CAD (coronary artery disease) Sister No problems noted. Mother CAD (coronary artery disease) Diabetes Dementia Family/Other Diabetes Other Heart disease Hyperlipidemia Hypertension Denies family history of Clotting disorder Chronic kidney disease (CKD) Suicide Anesthesia complication Bleeding disorder Lung disease Cancer Stroke Social History Smoking and tobacco/nicotine status: former use of tobacco/nicotine Second hand smoke exposure: No Alcohol intake: never Substance/Drug Use: never Household members: spouse Marital status details: Spouse 10 years older than her Physical Exam 2 Const: COMMON NORMALS: no acute distress, patient oriented x3 and healthy appearing HENMT: COMMON NORMALS: normocephalic and atraumatic HEAD & SCALP: n ormocephalic and atraumatic Eye: COMMON NORMALS: Equal, round and reactive pupils present and EOMs intact bilaterally PUPIL: Yes Equal, round and reactive pupils present Neck/C-Spine: COMMON NORMALS: full ROM and supple Chest: COMMONS NORMALS: normal inspection of the chest and normal palpation of entire chest wall Resp: COMMON NORMALS: normal respiratory effort, No retractions, No use of accessory muscles and clear to auscultation bilaterally AUSCULTATION: clear to auscultation bilaterally Cardio: COMMON NORMALS: regular rate, regular rhythm and No murmurs present (Cardio) RATE: regular rate RHYTHM: regular rhythm GI: COMMON NORMALS: Normal to inspection, nondistended, normoactive bowel sounds present, Soft to palpation, non-tender and no masses PALPATION: Yes Soft to palpation Extremity: COMMON NORMALS: normal to inspection and full ROM Neuro: COMMON NORMALS: patient oriented x3, moves all extremities and no focal motor deficits Psych: COMMON NORMALS: mental status grossly normal, Normal thought process present and cooperative THOUGHT PROCESS: Normal thought process present Skin: COMMON NORMALS: no rashes or lesions noted and no wounds GENERAL SKIN EXAM: no rashes or lesions noted Course 2 Vital Signs: Vital signs: Vital Signs Temperature 98.7 F 07/23/24 11:45 Pulse Rate 73 07/23/24 15:19 Respiratory Rate 17 07/23/24 14:58 Blood Pressure 172/67 07/23/24 15:19 Pulse Oximetry 98 07/23/24 15:19 Oxygen Delivery Me thod Room Air 07/23/24 14:58 MDM - Syncope Medical Decision Making Patient presents here after possible syncopal event she did just recently start Zoloft she has been well-appearing here she feels improved she does have a UTI and hyponatremia I did offer admission she states she feels much improved like to go home her vitals here been stable did give her a fluid bolus we will start her on Keflex she is follow-up with PCP and return if worsening she understands agrees to plan Medical Records I reviewed the patient's medical records. Lab Data I reviewed the patient's lab results. 07/23/24 12:04 07/23/24 12:[address] 07/23/24 12:12 IMPRESSION: 1. No acute intracranial hemorrhage or edema. 2. Moderate atrophy and advanced small vessel disease with lacunar infarcts. No acute interval change. Laboratory Results WBC 6.36 10^3/uL (3.29-11.43) 07/23/24 12:04 RBC 3.82 10^6/uL (3.85-5.65) L 07/23/24 12:04 Hgb 12.40 g/dL (11.27-16.99) 07/23/24 12:04 Hct 36.0 % (36-47) 07/23/24 12:04 MCV 94.2 fl (85-98) 07/23/24 12:04 MCH 32.5 pg (27-33) 07/23/24 12:04 MCHC 34.4 g/dL (30-55) 07/23/24 12:04 RDW 13.0 % (12.1-15.1) 07/23/24 12:04 Plt Count 197 10^3/cmm (157-399) 07/23/24 12:04 MPV 9.5 fL (7.4-10.4) 07/23/24 12:04 Neut % (Auto) 70.6 % 07/23/24 12:04 Lymph % (Auto) 18.1 % 07/23/24 12:04 Luce % (Auto) 9.3 % 07/23/24 12:04 Eos % (Auto) 0.9 % 07/23/24 12:04 Baso % (Auto) 0.8 % 07/23/24 12:04 Neut # (Auto) 4.49 10^3/uL (1.8-7.7) 07/23/24 12:04 Lymph # (Auto) 1.2 10^3/uL (0.8-4.8) 07/23/24 12:04 Luce # (Auto) 0.6 10^3/uL (0.2-0.9) 07/23/24 12:04 Eos # (Auto) 0.1 10^3/uL (0.0-0.8) 07/23/24 12:04 Baso # (Auto) 0.1 10^3/uL (0.0-0.1) 07/23/24 12:04 Nucleated RBC % (auto) 0 % 07/23/24 12:04 Nucleated RBCs # 0.0 /100WBC 07/23/24 12:04 Sodium 126 mmol/L (136-145) L 07/23/24 12:04 Potassium 4.6 mmol/L (3.5-5.1) 07/23/24 12:04 Chloride 92 mmol/L (98-107) L 07/23/24 12:04 Carbon Dioxide 22 mmol/L (22-29) 07/23/24 12:04 Anion Gap 16.6 (5-19) 07/23/24 12:04 BUN 15 mg/dL (8-23) 07/23/24 12:04 Creatinine 0.7 mg/dL (0.5-0.9) 07/23/24 12:04 GFR Calculation Not Reportable 07/23/24 12:04 Glucose 82 mg/dL (65-115) 07/23/24 12:04 Calculated Osmolality 262 mOsm/kg (285-295) L 07/23/24 12:04 Calcium 8.7 mg/dL (8.5-10.5) 07/23/24 12:04 Total Bilirubin 0.5 mg/dL (0.15-1.2) 07/23/24 12:04 AST 16 U/L (0-32) 07/23/24 12:04 ALT 12 U/L (0-33) 07/23/24 12:04 Alkaline Phosphatase 36 U/L (35-105) 07/23/24 12:04 Total Protein 6.9 g/dL (6.6-8.7) 07/23/24 12:04 Albumin 4.1 g/dL (3.5-5.2) 07/23/24 12:04 Globulin 2.8 g/dL (1.3-4.6) 07/23/24 12:04 Urine Color Yellow (Yellow) 07/23/24 14:24 Urine Appearance Cloudy (CLEAR) A 07/23/24 14:24 Urine pH 5.5 (5-7) 07/23/24 14:24 Ur Specific [place] 1.014 (1.005-1.030) 07/23/24 14:24 Urine Protein 1+ (Negative) A 07/23/24 14:24 Urine Glucose (UA) Negative (Normal) 07/23/24 14:24 Urine Ketones Negative (Negative) 07/23/24 14:24 Urine Blood Negative (Negative) 07/23/24 14:24 Urine Nitrate Positive (Negative) A 07/23/24 14:24 Urine Bilirubin Negative (Negative) 07/23/24 14:24 Urine Urobilinogen 1.0 mg/dL (Negative) 07/23/24 14:24 Ur Leukocyte Esterase Trace (Negative) A 07/23/24 14:24 Urine RBC 0-4 /hpf (0-2) H 07/23/24 14:24 Urine WBC 25-40 /hpf (0-5) H 07/23/24 14:24 Ur Squamous Epith Cells 0-4 /hpf (0-5) H 07/23/24 14:24 Amorphous Sediment Not Reportable 07/23/24 14:24 Urine Bacteria 4+ /hpf (NONE) H 07/23/24 14:24 All radiology interpretation(s) finalized by discharge EKG Data EKG 1: I personally reviewed and interpreted this EKG as follows: EKG interpretation date: 07/23/24 EKG interpretation time: 11:41 Interpretation: nsr hr [address] elevation qrs 133 qtc 423 Discharge Plan Discharge Patient Disposition: Home Clinical Impression: Acute cystitis, Syncope, Anxiety, Hyponatremia Condition: Stable Prescriptions: New cephalexin 500 mg capsule 500 mg PO TID 7 Days Qty: 21 0RF No Action cholecalciferol (vitamin D3) 5,000 unit capsule 5,000 unit PO QAM acetaminophen [Tylenol Arthritis Pain] 650 mg tablet extended release 1,300 mg PO QAM gabapentin 800 mg tablet 800 mg PO BID spironolactone 25 mg tablet 12.5 mg PO DAILY Qty: 30 4RF Adult 50 Plus Probiotic 4 billion cell capsule 4,000 mmu cells PO DAILY Rx Instructions: administer with a meal nitroglycerin 0.4 mg tablet, sublingual See Rx Instructions .ROUTE .COMPLEX Qty: 30 0RF Dose Instruction: TAKE 1 TABLET UNDER THE TONGUE q5m NEEDED FOR FOR CHEST PAIN FOR 30 DAYS Rx Instructions: TAKE 1 TABLET UNDER THE TONGUE q5m NEEDED FOR FOR CHEST PAIN FOR 30 DAYS valsartan 320 mg tablet 320 mg PO QAM Qty: 90 3RF calcium carbonate-vitamin D3 [Calcium + D] 600 mg-5 mcg (200 unit) Tablet 1 tab PO BID carvedilol 25 mg tablet 25 mg PO BID isosorbide mononitrate 120 mg tablet extended release 24 hr 120 mg PO DAILY pravastatin 80 mg tablet 80 mg PO DAILY morphine 15 mg tablet 7.5 mg PO .Q4-6H PRN (Reason: Pain) meloxicam 7.5 mg tablet 7.5 mg PO DAILY hydralazine 10 mg tablet 10 mg PO BID Qty: 20 0RF Discharge Orders: Discharge ED (Routine); Ordered 07/23/24 Ordered By: Oleksandr Tobias Referrals: Castro Hinson DO [Primary Care Provider] - 4-7 days Discharge Diet: Advance as tolerated Discharge Activity: Resume usual activity Patient Instructions: Urinary Tract Infection in Women (DC), Syncope (ED) Coding Level of Care Code ED General Counselor for Jensen Sinclair
[2024-07-23 12:09] LABS: Basophils # 0.1 10^3/uL (0.0-0.1); Basophils % 0.8 %; Eosinophils # 0.1 10^3/uL (0.0-0.8); Eosinophils % 0.9 %; Lymphocytes # 1.2 10^3/uL (0.8-4.8); Lymphocytes % 18.1 %; Mean Corpuscular HGB Conc 34.4 g/dL (30-55); Mean Corpuscular Hemoglobin 32.5 pg (27-33); Mean Corpuscular Volume 94.2 fl (85-98); Mean Platelet Volume 9.5 fL (7.4-10.4); Monocytes # 0.6 10^3/uL (0.2-0.9); Monocytes % 9.3 %; Neutrophils # 4.49 10^3/uL (1.8-7.7); Neutrophils % 70.6 %; Nucleated Red Blood Cells % 0 %; Platelet Count 197 10^3/cmm (157-399); Red Blood Count 3.82 10^6/uL (3.85-5.65); White Blood Count 6.36 10^3/uL (3.29-11.43)
--- NOTE | 2024-07-23 12:12 | CT_ITS ---
WS: [id number] CT HEAD NONCONTRAST HISTORY: weakness TECHNIQUE: Contiguous axial imaging performed through the brain in 2.5 mm imaging. Bone and soft tiss ue windows. Sagittal and coronal reformats reviewed. All CT scans at [facility] use at least one of these dose optimization techniques: automated exposure control; mA and/or kV adjustment per pa tient size (includes targeted exams where dose is matched to clinical indication); or iterative recon struction. DLP: 974.48 mGy.cm COMPARISON: 06/28/2024 Moderate to severe atrophy with severe small vessel disease. No acute blood. Small lacunar infarcts i n the basal ganglia. No acute edema or hemorrhage. Ventricles: Mildly dilated ventricles. No inferior displacement of the cerebellar tonsils. Paranasal sinuses: As visualized are clear. Mastoid air cells: Well pneumatized. Calvarium and scalp: Skull is intact with no soft tissue edema or swelling. CT/CT head wo con* [id number] IMPRESSION: 1. No acute intracranial hemorrhage or edema. 2. Moderate atrophy and advanced small vessel disease with lacunar infarcts. N o acute interval change.
[2024-07-23 12:30] LABS: Alanine Aminotransferase 12 U/L (0-33); Albumin Level 4.1 g/dL (3.5-5.2); Alkaline Phosphatase 36 U/L (35-105); Anion Gap 16.6 (5-19); Aspartate Amino Transferase 16 U/L (0-32); Blood Urea Nitrogen 15 mg/dL (8-23); Calcium 8.7 mg/dL (8.5-10.5); Carbon Dioxide 22 mmol/L (22-29); Chloride 92 mmol/L (98-107); Creatinine Clr Calc Pharmacy 40.4998; Globulin 2.8 g/dL (1.3-4.6); Glucose 82 mg/dL (65-115); Osmolality Calculated 262 mOsm/kg (285-295); Potassium 4.6 mmol/L (3.5-5.1); Sodium 126 mmol/L (136-145); Total Bilirubin 0.5 mg/dL (0.15-1.2); Total Protein 6.9 g/dL (6.6-8.7)
[2024-07-23] MEDS: sodium chloride 0.9% 1,000 ML 999 ML IV (13:16)
[2024-07-23 14:32] LABS: Bilirubin Urine Negative (Negative); Blood Urine Negative (Negative); Glucose Urine UA Negative (Normal); Ketones Urine Negative (Negative); Leukocyte Esterase Urine Trace (Negative); Nitrate Urine Positive (Negative); Protein Urine 1+ (Negative); Specific Gravity, Urine 1.014 (1.005-1.030); Urine Appearance Cloudy (CLEAR); Urine Color Yellow (Yellow); pH Urine 5.5 (5-7)
--- NOTE | 2024-07-23 14:46 | PC.NURSE ---
pt requesting food and drink, Dr. Tobias notified and okayed.
[2024-07-23 14:48] LABS: Add Urine Microscopic? YES; Bacteria Urine 4+ /hpf; RBC Urine 0-4 /hpf (0-2); Squamous Epithelial Cell Urine 0-4 /hpf (0-5); WBC Urine 25-40 /hpf (0-5)
[2024-07-23 14:49] LABS: Add Urine Culture? Yes
[2024-07-23] MEDS: cefTRIAXone 1,000 mg SDV 1000 MG IVP (14:59)
== END 2024-07-23 15:21 | disposition home or self-care (01) ==
PROVIDERS: Emergency Provider Emergency Medicine; PCP Internal Medicine
DX: N30.00 Acute cystitis without hematuria (principal); R55 Syncope and collapse; F41.9 Anxiety disorder, unspecified; E87.1 Hypo-osmolality and hyponatremia
CPT/HCPCS: 36415; 70450; 80053; 81001; 85025; 87077; 87086; 87186; 93005; 96361; 96374; 99285; J0696; J7030

== ENCOUNTER → 2024-10-09 11:18 | Outpatient (BNVA) | payer MEDICARE, OTHER, SELFPAY | PROVIDERS: PCP Internal Medicine; Visit Provider Internal Medicine Cardiovascular Disease | DX: R06.02 Shortness of breath (principal); R53.83 Other fatigue; N18.9 Chronic kidney disease, unspecified; Z79.899 Other long term (current) drug therapy | CPT/HCPCS: 36415; 80048; 84443 ==

== ENCOUNTER → 2025-05-12 16:42 | Outpatient (BNVA) | payer MEDICARE, OTHER, SELFPAY | PROVIDERS: PCP Internal Medicine; Visit Provider Internal Medicine Cardiovascular Disease | DX: I49.9 Cardiac arrhythmia, unspecified (principal); I36.1 Nonrheumatic tricuspid (valve) insufficiency; I71.20 Thoracic aortic aneurysm, without rupture, unspecified; I10 Essential (primary) hypertension; R06.02 Shortness of breath; R53.83 Other fatigue; Z87.891 Personal history of nicotine dependence | CPT/HCPCS: 36415; 80048; 83880; 84443; 85025; 99214 ==

== ENCOUNTER 2025-05-28 08:51 | Outpatient (CLI) | payer MEDICARE, OTHER, SELFPAY ==
[2025-05-28 10:38] LABS: Anion Gap 14.2 (5-19); Blood Urea Nitrogen 18 mg/dL (8-23); Calcium 9.2 mg/dL (8.5-10.5); Carbon Dioxide 26 mmol/L (22-29); Chloride 98 mmol/L (98-107); Glucose 99 mg/dL (65-115); NT Pro B Type Natriuretic Pept 1880 pg/mL (0-450); Osmolality Calculated 280 mOsm/kg (285-295); Potassium 4.2 mmol/L (3.5-5.1); Sodium 134 mmol/L (136-145)
== END 2025-05-28 08:52 | disposition home or self-care (01) ==
LOC: LAB 08:51
PROVIDERS: PCP Family Medicine; Visit Provider Internal Medicine Cardiovascular Disease
DX: I10 Essential (primary) hypertension (principal); R06.02 Shortness of breath
CPT/HCPCS: 36415; 80048; 83880

== ENCOUNTER 2025-08-24 09:11 | Inpatient (IN) | payer MEDICARE, OTHER, SELFPAY ==
--- OUTSIDE RECORDS SUMMARY | 2024-04-12 05:00 | XMS_ITS ---
Author Organization [facility] Address [address] [facility] [place] [address] Care Team Providers Care Deputy Sheriff Name Role Phone Castro Hinson DO Primary Care Provider Tennillea Elvia Shipley Unavailable [phone] Daya Escobar Unavailable [phone] REASON FOR VISIT Recurrent C-Diff Encounters Encounter Location Date Provider Diagnosis [facility] [address] [place] [address] 04/12/2024 Daya Escobar Plan Of Treatment No Information Progress Notes * Dodie VILLADOB: [birth year] (89 yo F)Acc No.[id number]:04/12/2024 Progress Notes Patient: Sarahi Ninomaggie Forde Provider: Halie Escobar APRN :1935 A ge:88 Y S ex:Female Date:04/12/2024 Address:[facility] [address], [place] Pcp:Castro Hinson DO Subjective: * Chief Complaints: * R ecurrent C-Diff * Electronic signature of Daya Escobar APRN on 08/24/2025 at 09:16 AM CLINICAL PHARMACY MANAGER Sign off status: Pending * Provider: Halie Escobar APRN Date: 0 04/12/2024 Generated for Alyse mora/Theresa/eTransmitting on: 1 10/24/2024 09:16 AM CLINICAL PHARMACY MANAGER
[2025-08-24] VITALS (9 sets, daily range): BP systolic 102–199; BP diastolic 41–103; PULSE 72–99; RESP 14–21; TEMP 36.4–37; O2SAT 91–95; BMI 19.7; BMI 18.8
--- OUTSIDE RECORDS SUMMARY | 2025-08-24 09:16 | XMS_ITS | Patient Health Record ---
Author Organization [facility] Address [address] [place] [address] Care Team Providers Care Private Branch Exchange Service Advisor Name Role Phone Castro Hinson DO Primary Care Provider Elvia Ruelas Unavailable [phone] Allergies Allergen (clinical drug ingredient) Drug/Non Drug Allergy documented on EMR Reaction Allergy Type Onset Date Status aspirin Aspirin nausea and vomiting Drug Allergy Active hydralazine Hydralazine dizziness Drug Allergy Act christopher Iodine Unknown Drug Allergy Active metoprolol Metoprolol Unknown Drug Allergy Activ e tramadol Tramadol Unknown Drug Allergy Active Reason For Referral No Information Medications Medication SIG (Take, Route, Frequency, Duration) Notes Start Date End Date Status Carvedilol 25 MG Tablet Oral; Duration: 90 Active metroNIDAZOLE 500 MG Tablet 1 tablet Orally Twice a day; Duration: 21 Not-Taking Pravastatin Sodium 80 MG Tablet Oral; Duration: 90 Active Vancomycin HCl 125 MG Capsule take 1 capsule 4 times daily for 1 month, 3 times daily for 1 month, 2 times daily for 1 month, once daily for 1 month Oral 4 times daily; Duration: 30 days Active oxyBUTYnin Chloride ER 10 MG Tablet Extended Release 24 Hour Oral; Duration: 90 Active Omeprazole Magnesium 20 MG Tablet Delayed Release 1 tablet 30 minutes before morning meal Orally Once a day Not-Taking Valsartan 320 MG Tablet Oral; Duration: 90 Active Nitroglycerin 0.4 MG Tablet Sublingual Sublingual; Duration: 30 Active FeroSul 325 (65 Fe) MG Tablet Oral; Duration: 60 Active Morphine Sulfate 15 MG Tablet Oral; Duration: 30 Active DULoxetine HCl 20 MG Capsule Delayed Release Particles Oral; Duration: 30 Active Prolia 60 MG/ML Solution Prefilled Syringe as directed Subcutaneous Every 6 months Active Gabapentin 800 MG Tablet Oral; Duration: 30 Active Magnesium 300 MG Capsule 1 capsule with a meal Orally Once a day Active Calcium 1200 2260-1014 MG-UNIT Tablet Chewable 1 tablet Orally Twice a day Active Vitamin D3 125 MCG (5000 UT) Capsule as directed Orally Active Social History Section Notes: Alcohol - Never Tobacco- Former smoker. Stopped 50 years ago. Substance Abuse - Never Plan Of Treatment No Information Insurance Providers Payer Name Payer Address Payer Phone Subscriber Number Group Number Insured Name Patient Relationship to Insured Coverage Start Date Coverage End Date [place] [address] [place] [phone] [id number] Dodie Jaffe Self - patient is the insured [email or web address] Insurance [address] [address] [place] [phone] [id number] Dodie Jaffe Self - patient is the insured Medical (General) History Medical History History ICD Code Heart Disease hypertension cataracts fibromyalgia osteoporosis Surgical History Surgery Date(Month/Year) Spinal fusion 2008 Bladder Mesh 2002 hysterectomy, total with bilateral salpi larios-oophorectomy (BSO) 1972 Spinal fusion 1967 Hospitalization History Reason Date(Month/Year) [facility] 2020
--- OUTSIDE RECORDS SUMMARY | 2025-08-24 09:16 | XMS_ITS | Data Portability ---
Author Organization SHENA Song [facility] Address [address] [address] [place] [address] Care Team Providers Care Broker [employer] Name Role Phone PAIGE ACKERMAN Primary Care Provider [phone] Assessment Encounter Date Assessment Date Assessment LastModified by Organization Details LastModified Time 07/25/2024 07/25/2024 She reports she hasn't been taking her amlodipine for a couple of weeks. She would like to stop taking so many medications. She will stop the aldactone because her sodium level is low, she will stop the gabapentin in the morning and will stop the hydralazine in the morning. Not available 07/25/2024 11:19:55 Plan of Treatment Reminders Order Date Submit Date Provider Last Modified By Organization Details Last Modified Time Details Appointments None recorded. Lab BMP, serum or plasma 2024 025 ANUJ [facility], [address], [address], [place], [address], 5 16:32:12 phosphorus, serum or plasma 2024 025 [facility], [address] [place] [address] 248, [address] [place], [address], 5 05:36:31 magnesium, serum or plasma 2024 025 [facility], [address] [place] [address] 248, [address] [place], [address], 5 05:36:29 CBC 2024 025 [facility] [address] [facility], [facility] 1[place], [address], 5 15:47:33 BMP, serum or plasma 2023 024 [facility], [address], [address], [address], 4 16:11:29 TSH, serum or plasma 2023 024 [facility] ([facility]), [address] [place], [address], 4 16:28:15 BMP, serum or plasma 2023 024 [facility], [address], [address], [place], [address], 4 14:05:24 iron + TIBC + ferritin, serum 2023 024 [facility], [address] [place] [address], [address] [place], [address], 4 05:40:29 CBC 2023 024 [facility], [address], [address], [address], 4 12:59:47 Referral home health referral 2024 025 [email or web address] 2 [facility], [address] [place] [address], [address], 5 10:20:40 home health referral - physical therapy eval and treat 2023 024 [email or web address] [place], [address], 12:58:53 Procedures None recorded. Surgeries None recorded. Imaging None recorded. Medication Orders tramadol 50 mg tablet 2024 025 [facility] [place], [address] [place], [address], 17:53:11 sertraline 50 mg tablet 2023 024 [facility] 15, [address], [place], [address], 12:05:12 Patient TargetsNo targets recorded. Patient Instructions Encounter Date Encounter Id Patient Instructions Last Modified By Organization Details Last Modified Time 07/22/2024 [id number] struggling emotionally; willing to try medicine; having trouble sleeping; on melatonin [email or web address] Not available 07/22/2024 12:04:34 07/25/2024 [id number] Call or return for questions or concerns. Not available 07/25/2024 11:25:05 08/14/2024 [id number] still recovering from illness repeat bmp today she is weak and balance is poor; she agrees to let therapy come to home [email or web address] helping Not available 08/14/2024 12:27:00 Reason for Referral Home Health Referral for Abn ormal gait due to muscle weakness physical therapy eval and treat Referring Physician: Castro Hinson, Internal Medicine, Encounter Date: 08/14/2024 Home Health Referral for Chr onic low back pain PT eval and treat Referring Physician: Paige Ackerman, Family Medicine, Encounter Date: 07/08/2025 Results Created Date Observation Date Name Description Value Unit Range Abnormal Flag Note LastModifiedBy Organization Detail LastModifiedTime 07/22/20 24 07/22/2024 CBC WBC 7.3 x10 4.0-10 .5 Not Available [facility] [address] [facility] [address], [place], [address], 07/22/2024 12:59:47 07/22/20 24 07/22/2024 CBC RBC 3.66 x10 3.50-5 .50 Not Available [facility] [address] Natarajan [facility] 1, [place], [address], 07/22/2024 12:59:47 07/22/20 24 07/22/2024 CBC HGB 12.1 g/dL 12.0-1 6.0 Not Available [facility] [address] Natarajan [facility] 1, [place], [address], 07/22/2024 12:59:47 07/22/20 24 07/22/2024 CBC HCT 35.3 % 37.0-4 7.0 low Not Available [facility] [address] Natarajan [facility] 1, [place], [address], 07/22/2024 12:59:47 07/22/20 24 07/22/2024 CBC MCV 96.4 fL 80.0-9 9.9 Not Available [facility] [address] Natarajan [facility] 1, [place], [address], 07/22/2024 12:59:47 07/22/20 24 07/22/2024 CBC MCH 33.0 pg 27.0-3 2.0 high Not Available [facility] [address] Natarajan [facility] 1, [place], [address], 07/22/2024 12:59:47 07/22/20 24 07/22/2024 CBC MCHC 34.2 g/dL 32.0-3 6.0 Not Available [facility] [address] Natarajan [facility] 1, [place], [address], 07/22/2024 12:59:47 07/22/20 24 07/22/2024 CBC RDW 13.6 % 11.5-1 4.5 Not Available [facility] [address] [facility] 1, [place], [address], 07/22/2024 12:59:47 07/22/20 24 07/22/2024 CBC plt 215.5 x10 140.0- 451.0 Not Available [place] [facility] [address] [facility], [place], [address], 07/22/2024 12:59:47 07/22/20 24 07/22/2024 CBC lymphocytes % 18.0 % 20.0-5 0.0 low Not Available [place] [facility] [address] [facility], [place], [address], 07/22/2024 12:59:47 07/22/20 24 07/22/2024 CBC granulcytes % 73.9 % 30.0-7 0.0 high Not Available [place] [facility] [address] [address], [place], [address], 07/22/2024 12:59:47 07/22/20 24 07/22/2024 CBC monocytes % 7.0 % 2.0-16 .0 Not Available [place] [facility] [address]ela [facility], [place], [address], 07/22/2024 12:59:47 07/22/20 24 07/22/2024 CBC granulcytes# 5.4 x10 Not Aparna ilable [place] [facility] [address] [facility], [place], [address], 07/22/2024 12:59:47 07/22/20 24 07/22/2024 CBC lymphocytes # 1.3 x10 Not Available [facility] [facility] [address] [facility], [place], [address], 07/22/2024 12:59:47 07/22/20 24 07/22/2024 CBC monocytes # 0.5 x10 Not Avai lable [facility] [address] [facility], [place], [address], 07/22/2024 12:59:47 07/22/20 24 07/22/2024 BMP (FEMA LE) glucose 105.0 mg/dL 60.0-9 9.0 high Not Available [facility] [address] [facility], [place], [address], 07/22/2024 14:05:24 07/22/20 24 07/22/2024 BMP (FEMA LE) BUN (blood urea nitrogen) 17.0 mg/dL 10.0-2 6.0 Not Available [facility] [address] [facility] 1, [place], [address], 07/22/2024 14:05:24 07/22/20 24 07/22/2024 BMP (FEMA LE) creatinine (serum) 0.6 mg/dL 0.4-1. 5 Not Available [facility] [address] [facility] 1, [place], [address], 07/22/2024 14:05:24 07/22/20 24 07/22/2024 BMP (FEMA LE) BUN/creatini ne ratio 26.98 ratio Not Available [facility] [address] [facility] 1, [place], [address], 07/22/2024 14:05:24 07/22/20 24 07/22/2024 BMP (FEMA LE) calcium 9.3 mg/dL 8.4-10 .5 Not Available [facility] [address] [facility] 1, [place], [address], 07/22/2024 14:05:24 07/22/20 24 07/22/2024 BMP (FEMA LE) sodium 124.0 mmol/ L 136.0- 145.0 low Not Available [facility] [address] [address], [place], [address], 07/22/2024 14:05:24 07/22/20 24 07/22/2024 BMP (FEMA LE) potassium 5.2 mmol/ L 3.5-5. 1 high Not Available [facility] [address] [facility] 1, [place], [address], 07/22/2024 14:05:24 07/22/20 24 07/22/2024 BMP (FEMA LE) chloride 96.0 mmol/ L 98.0-1 10.0 abnormal Not Available [facility] [address] [facility] 1, [place], [address], 07/22/2024 14:05:24 07/22/20 24 07/22/2024 BMP (FEMA LE) C02 23.0 mmol/ L 22.0-3 1.0 Not Available [facility] [address] [facility] 1, [place], [address], 07/22/2024 14:05:24 07/22/20 24 07/22/2024 BMP (FEMA LE) anion gap 5.0 calc Not Available [facility] [address] [facility] 1, [place], [address], 07/22/2024 14:05:24 07/22/20 24 07/24/2024 IRON, TIBC AND OPAL TIN PANEL iron, total 166 mcg/d L 45-160 high Not Available [facility] [address] [place], [address], 07/24/2024 05:40:29 07/22/20 24 07/24/2024 IRON, TIBC AND OPAL TIN PANEL iron binding capacity 332 mcg/d L_(ca lc) 250-45 0 normal Not Available [facility] [address] [place], [address], 07/24/2024 05:40:29 09/30/07/24/2024 IRON, TIBC AND OPAL TIN PANEL % saturation 50 %_(ca lc) 16-45 high Not Available [facility] [address] [place] [address], [address], 07/24/2024 05:40:29 07/22/20 24 07/24/2024 IRON, TIBC AND OPAL TIN PANEL ferritin 224 NG/mL 16-288 normal Not Available [facility] [address] [place] [address], [address], 07/24/2024 05:40:29 07/22/20 24 07/22/2024 TSH, serum or plasm a TSH 0.55 uIU/m L 0.49-3 .82 Not Available [facility] ([facility]) [address] [place] [address], [address], 07/22/2024 12:01:17 08/05/20 24 08/05/2024 BMP (FEMA LE) glucose 96.0 mg/dL 60.0-9 9.0 Not Available [facility] [address] [place] [address], [address], 08/05/2024 16:11:29 08/05/20 24 08/05/2024 BMP (FEMA LE) BUN (blood urea nitrogen) 24.0 mg/dL 10.0-2 6.0 Not Available [address] [address], [place], [address], 08/05/2024 16:11:29 08/05/20 24 08/05/2024 BMP (FEMA LE) creatinine (serum) 1.1 mg/dL 0.4-1. 5 Not Available [address] [address], [place], [address], 08/05/2024 16:11:29 08/05/20 24 08/05/2024 BMP (FEMA LE) BUN/creatini ne ratio 21.62 ratio Not Available [address] [address] [address] Natarajan [facility] 1, [place], [address], 08/05/2024 16:11:29 08/05/20 24 08/05/2024 BMP (FEMA LE) calcium 9.4 mg/dL 8.4-10 .5 Not Available [facility] [address] [facility] N[facility] 1, [place], [address], 08/05/2024 16:11:29 08/05/20 24 08/05/2024 BMP (FEMA LE) sodium 128.0 mmol/ L 136.0- 145.0 low Not Available [facility] [address] [facility] 1, [place], [address], 08/05/2024 16:11:29 08/05/20 24 08/05/2024 BMP (FEMA LE) potassium 3.8 mmol/ L 3.5-5. 1 Not Available [facility] [address] [facility], [place], [address], 08/05/2024 16:11:29 08/05/20 24 08/05/2024 BMP (FEMA LE) chloride 90.0 mmol/ L 98.0-1 10.0 abnormal Not Available [facility] [address] [facility], [place], [address], 08/05/2024 16:11:29 08/05/20 24 08/05/2024 BMP (FEMA LE) C02 27.0 mmol/ L 22.0-3 1.0 Not Available [facility] [address] [facility] 1, [place], [address], 08/05/2024 16:11:29 08/05/20 24 08/05/2024 BMP (FEMA LE) anion gap 11.0 calc Not Available [facility] [address] [facility] 1, [place], [address], 08/05/2024 16:11:29 08/14/2008/14/2024 BMP (FEMA LE) glucose 102.0 mg/dL 60.0-9 9.0 high Not Available [facility] [address] [facility] 1, [place], [address], 08/14/2024 14:40:53 08/14/2008/14/2024 BMP (FEMA LE) BUN (blood urea nitrogen) 22.0 mg/dL 10.0-2 6.0 Not Available [facility] [address] [facility] 1, [place], [address], 08/14/2024 14:40:53 08/14/2008/14/2024 BMP (FEMA LE) creatinine (serum) 0.9 mg/dL 0.4-1. 5 Not Available [facility] [address] [facility] 1, [place], [address], 08/14/2024 14:40:53 08/14/2008/14/2024 BMP (FEMA LE) BUN/creatini ne ratio 25.00 ratio Not Available [facility] [address] [facility] 1, [place], [address], 08/14/2024 14:40:53 08/14/2008/14/2024 BMP (FEMA LE) calcium 10.7 mg/dL 8.4-10 .5 high Not Available [facility] [address] [facility] 1, [place], [address], 08/14/2024 14:40:53 08/14/2008/14/2024 BMP (FEMA LE) sodium 131.0 mmol/ L 136.0- 145.0 low Not Available [facility] [address] [address], [place], [address], 08/14/2024 14:40:53 08/14/2015 0808/14/2024 BMP (FEMA LE) potassium 4.1 mmol/ L 3.5-5. 1 Not Available [facility] [address] Natarajan [facility] 1, [place], [address], 08/14/2024 14:40:53 08/14/20 24 08/14/2024 BMP (FEMA LE) chloride 93.0 mmol/ L 98.0-1 10.0 abnormal Not Available [facility] [address] [facility] 1, [place], [address], 08/14/2024 14:40:53 08/14/2008/14/2024 BMP (FEMA LE) C02 29.0 mmol/ L 22.0-3 1.0 Not Available [facility] [address] [facility], [place], [address], 08/14/2024 14:40:53 08/14/20 24 08/14/2024 BMP (FEMA LE) anion gap 9.0 calc Not Available [facility] [address] [facility] 1, [place], [address], 08/14/2024 14:40:53 11/11/19 25 11/11/2024 CBC WBC 4.8 x10 4.0-10 .5 Not Available [facility] [address] [facility] 1, [place], [address], 11/11/2024 15:47:33 11/11/19 25 11/11/2024 CBC RBC 3.51 x10 3.50-5 .50 Not Available [facility] [address] [facility] 1, [place], [address], 11/11/2024 15:47:33 11/11/19 25 11/11/2024 CBC HGB 12.0 g/dL 12.0-1 6.0 Not Available [facility] [address] [facility] 1, [place], [address], 11/11/2024 15:47:33 11/11/19 25 11/11/2024 CBC HCT 35.4 % 37.0-4 7.0 low Not Available [facility] [address] [facility] 1, [place], [address], 11/11/2024 15:47:33 11/11/19 25 11/11/2024 CBC MCV 100.8 fL 80.0-9 9.9 high Not Available [facility] [address] [facility] 1, [place], [address], 11/11/2024 15:47:33 11/11/19 25 11/11/2024 CBC MCH 34.2 pg 27.0-3 2.0 high Not Available [facility] [address] [facility], [place], [address], 11/11/2024 15:47:33 11/11/19 25 11/11/2024 CBC MCHC 34.0 g/dL 32.0-3 6.0 Not Available [facility] [address] [facility] 1, [place], [address], 11/11/2024 15:47:33 11/11/19 25 11/11/2024 CBC RDW 14.0 % 11.5-1 4.5 Not Available [facility] [address] [facility] 1, [place], [address], 11/11/2024 15:47:33 11/11/19 25 11/11/2024 CBC plt 161.6 x10 140.0- 451.0 Not Available [facility] [address] [facility] 1, [place], [address], 11/11/2024 15:47:33 11/11/19 25 11/11/2024 CBC lymphocytes % 30.8 % 20.0-5 0.0 Not Available [facility] [address] [facility] 1, [place], [address], 11/11/2024 15:47:33 11/11/19 25 11/11/2024 CBC granulcytes % 57.0 % 30.0-7 0.0 Not Available [facility] [address] [facility] 1, [place], [address], 11/11/2024 15:47:33 11/11/19 25 11/11/2024 CBC monocytes % 10.9 % 2.0-16 .0 Not Available [facility] [address] [address], [place], [address], 11/11/2024 15:47:33 11/11/19 25 11/11/2024 CBC granulcytes# 2.7 x10 Not Aparna ilable [facility] [address] [address], [place], [address], 11/11/2024 15:47:33 11/11/19 25 11/11/2024 CBC lymphocytes # 1.5 x10 Not Available [facility] [address] [address], [place], [address], 11/11/2024 15:47:33 11/11/19 25 11/11/2024 CBC monocytes # 0.5 x10 Not Avai lable [facility] [address] [address], [place], [address], 11/11/2024 15:47:33 11/11/19 25 11/11/2024 BMP (FEMA LE) glucose 105.0 mg/dL 60.0-9 9.0 high Not Available [facility] [address] [address], [place], [address], 11/11/2024 16:32:12 11/11/19 25 11/11/2024 BMP (FEMA LE) BUN (blood urea nitrogen) 18.0 mg/dL 10.0-2 6.0 Not Available [facility] [address] [facility] 1, [place], [address], 11/11/2024 16:32:12 11/11/19 25 11/11/2024 BMP (FEMA LE) creatinine (serum) 0.7 mg/dL 0.4-1. 5 Not Available [facility] [address] [facility] 1, [place], [address], 11/11/2024 16:32:12 11/11/19 25 11/11/2024 BMP (FEMA LE) BUN/creatini ne ratio 25.71 ratio Not Available [facility] [address] [facility] 1, [place], [address], 11/11/2024 16:32:12 11/11/19 25 11/11/2024 BMP (FEMA LE) calcium 9.1 mg/dL 8.4-10 .5 Not Available [facility] [address] [facility] 1, [place], [address], 11/11/2024 16:32:12 11/11/19 25 11/11/2024 BMP (FEMA LE) sodium 127.0 mmol/ L 136.0- 145.0 low Not Available [facility] [address] [facility] 1, [place], [address], 11/11/2024 16:32:12 11/11/19 25 11/11/2024 BMP (FEMA LE) potassium 4.0 mmol/ L 3.5-5. 1 Not Available [place] [facility] [address] [facility] 1, [place], [address], 11/11/2024 16:32:12 11/11/19 25 11/11/2024 BMP (FEMA LE) chloride 101.0 mmol/ L 98.0-1 10.0 normal Not Available [facility] [address] [facility] 1, [place], [address], 11/11/2024 16:32:12 11/11/19 25 11/11/2024 BMP (FEMA LE) C02 24.0 mmol/ L 22.0-3 1.0 Not Available [facility] [address] [facility] 1, [place], [address], 11/11/2024 16:32:12 11/11/19 25 11/11/2024 BMP (FEMA LE) anion gap 2.0 calc Not Available [facility] [address] [facility] 1, [place], [address], 11/11/2024 16:32:12 11/11/19 25 11/12/2024 MAGNE SIUM magnesium 2.1 mg/dL 1.5-2. 5 normal Not Available [facility] [address] [place], [address], 11/12/2024 05:36:29 11/11/19 25 11/12/2024 PHOSP HATE ( PHOSP HORUS ) phosphate ( phosphorus) 2.3 mg/dL 2.1-4. 3 normal Not Available [facility] [address] [place], [address], 11/12/2024 05:36:31 Result Notes None recorded. Problems Name Problem SNOMED Code Status Onset Date Resolution Date Notes Provider Name and Address Organization Details Recorded Time Radical bunionecto my Active 1983 R Bunionecto my; Date: 1983 SHENA Simon - [facility] L.LRenettaCRenetta 4 17:57:08 Left ventricula r hypertroph y 28943677 Active 2021 Left Ventricula r Hypertroph y; EF 50-55%, 2004. SHENA Ascencio - [facility], L.L.CRenetta 5 21:26:22 Cystocele 686145912 Active 2021 Cystocele; [facility]. [facility] 4 17:56:24 Benign hypertensi on 96690247 Active [address] [facility] 5 21:26:22 Hyperchole sterolemia 65251840 Active [address] [facility] 5 21:26:22 Finding of body mass index 716307689 Active 2021 BODY MASS INDEX (BMI) OF 19.0-19.9 IN ADULT Maria Eugeniamaggi Alvarez [facility] 4 17:56:43 Anxiety 32791973 Active [address] [facility] 5 21:26:22 Compressio n fracture of vertebral column 60915931 Active 2021 Vertibral Compressio n Fractures; Vertibropl asty, 2010. CAJESSENIA FRANKIE [facility] 5 21:26:22 Coronary cataract 83365281 Active [address] [facility] 5 21:26:22 Ex-cigaret te smoker 785433372 Active 2021 Ex Smoker; Quit 2004. KEVAN SKELTONY [facility] 5 21:26:22 Osteopenia 572695897 Active [address] [facility] 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 4 17:56:56 Repair of rectocele Active 2021 Rectocele; Surg, 2007. Maria Eugenia lane, [facility], L.LRenettaCRenetta 4 17:57:13 Enterocoli tis 80554588 Active 2021 C. 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 5 21:26:22 Chronic pain 65341842 Active [address], [facility], L.L.CRenetta 5 21:26:22 Irritable bowel syndrome with diarrhea 232898763 Active [address] [facility] 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 5 21:26:22 Overactive urinary bladder 419697389 Active 2024 [facility] 5 21:26:22 Osteoarthr itis 763716390 Active [address], [facility], L.L.CRenetta 5 21:26:22 Congestive heart failure 28264964 Active [address] [facility], DinaLRebecca 5 21:26:22 Moderate recurrent major depression 86569939 Active [address] [facility], Javed 5 21:26:22 Polyneurop athy 06642477 Active 2024 Paige Ackerman MD [address] [place] [address], [phone], [facility], Javed 12:12:18 Chronic low back pain 546033367 Active 2024 Paige Ackerman MD [address] [place] [address], [phone], [facility], KristineCRenetta 12:15:11 Problem Notes None recorded. Procedures Surgical History Date Name Laterality Status Provider Name and Address Organization Details Recorded Time 07/23/[address] of head completed [facility], LRenettaL.CRenetta 07/25/2024 10:55:21 09/05/20 23 Doppler ultrasonography of vein completed [facility], DinaL.CRenetta 09/07/2023 09:51:58 08/28/20 23 diagnostic radiography of lumbar spine completed [facility], L.L.CRenetta 09/04/2023 15:46:51 appendectomy completed KEVAN DAVID [facility], LRenettaLRebecca 02/09/2025 21:26:44 [facility], LRenettaLRenettaCRenetta 02/09/2025 21:27:26 Imaging Results None recorded. Procedure Notes None recorded. Medical Equipment None Reported. Allergies Allergen ID Allergen Name Allergen Category Reaction Reaction Severity Criticality Documentation Date Start Date Code Code System Note Provider Name and Address Organization Details Recorded Time 70435 iodine medicatio n Not available Not available Not available 05/20/2023 5933 Rx[address] [facility], Javed 4 08:45:41 55186 tramadol hydrochlo ride medicatio n Not available Not available Not available 05/20/2023 07246 RxNorm Maria Eugenia lane [facility] [facility] 4 08:45:42 Medications Name Sig Start Date Stop Date Status Note LastModified by Organization Details LastModified Time hydralazi ne 10 mg tablet TAKE 1 TABLET BY MOUTH TWICE DAILY 11/11 completed Not Available Not Available Not Available carvedilo l 25 mg tablet TAKE 1 TABLET BY MOUTH TWICE DAILY with food or meal active Not Available Not Available No t Available Vitamin B-12 100 mcg tablet daily 09/27 completed vo KM/; Recorded 03/23/20 22 8:05AM by Izabella Null RN, Office Visit; Refill Quantity : 30; Tablet; Not Available Not Available Not Available potassium chloride ER 8 mEq capsule,e xtended release take 1 capsule BY MOUTH EVERY DAY active Not Available Not Available No t Available oxybutyni n chloride ER 10 mg tablet,ex tended release 24 hr TAKE 1 TABLET BY MOUTH ONCE DAILY 03/27 completed Not Available Not Available Not Available pravastat in 40 mg tablet every morning for choleste rol 12/24 completed Recorded 08/14/20 19 7:26AM by Izabella Null RN, Office Visit; Refill Quantity : 30; Tablet; Not Available Not Available Not Available prednison e 20 mg tablet Take 1 tablet every day by oral route for 5 days. 09/27 completed Not Available Not Available Not Available isosorbid e mononitra te ER 30 mg tablet,ex tended release 24 hr TAKE 1 TABLET BY MOUTH EVERY DAY 12/24 completed Not Available Not Available Not Available amlodipin e 2.5 mg tablet TAKE 1 TABLET BY MOUTH EVERY DAY FOR hyperten viri active Not Available Not Available No t Available metronida zole 500 mg tablet TAKE 1 TABLET BY MOUTH THREE TIMES DAILY 09/27 completed Not Available Not Available Not Available chlorthal idone 25 mg tablet daily 09/27 completed fred haq amlodipi ne; Recorded 02/08/20 1:05PM by Roselia Darnell, Office Visit; Refill Quantity : 30; Tablet; Not Available Not Available Not Available ciproflox acin 500 mg tablet TAKE 1 TABLET BY MOUTH TWICE DAILY for 7 days 08/14 completed Not Available Not Available Not Available tramadol 50 mg tablet TAKE 1 TABLET BY MOUTH EVERY DAY NEEDED active Not Available Not Available No t Available spironola ctone 25 mg tablet TAKE 1/2 (ONE-TACOS F) TABLET BY MOUTH ONCE DAILY 07/29 completed Not Available Not Available Not Available vancomyci n 125 mg capsule TAKE 1 CAPSULE BY MOUTH 4 TIMES DAILY FOR 14 DAYS 06/28 completed Not Available Not Available Not Available isosorbid e mononitra te ER 120 mg tablet,ex tended release 24 hr TAKE 1 TABLET BY MOUTH EVERY DAY active Not Available Not Available No t Available meloxicam 7.5 mg tablet TAKE 1 TABLET BY MOUTH EVERY DAY active Not Available Not Available No t Available isosorbid e mononitra te ER 60 mg tablet,ex tended release 24 hr TAKE 1 TABLET BY MOUTH ONCE DAILY 12/24 completed Not Available Not Available Not Available pravastat in 80 mg tablet TAKE 1 TABLET BY MOUTH EVERY DAY active Not Available Not Available No t Available gabapenti n 800 mg tablet TAKE 1 TABLET BY MOUTH DAILY 08/14 completed Not Available Not Available Not Available cephalexi n 500 mg capsule take 1 capsule BY MOUTH THREE TIMES DAILY for 7 days 07/30 completed Not Available Not Available Not Available prednison e 50 mg tablet TAKE 1 TABLET BY MOUTH THREE TIMES DAILY ON 01/18 FIRST TABLET AT 2:30 AM AND SECOND TABLET AT 9:30 AM AND THIRD TABLET AT 2:30 PM PRIOR TO PROCEDUR E 09/27 completed Not Available Not Available Not Available valsartan 320 mg tablet TAKE 1 TABLET BY MOUTH EVERY MORNING active Not Available Not Available No t Available nitroglyc iraj 0.4 mg sublingua l tablet Place by sublingu al route. active Not Available Not Available No t Available hydralazi ne 50 mg tablet TAKE 2 TABLETS BY MOUTH THREE TIMES DAILY active Not Available Not Available No t Available furosemid e 20 mg tablet TAKE 1 TABLET BY MOUTH EVERY DAY active Not Available Not Available No t Available morphine 15 mg immediate release tablet take 1/2 to 1 tablet BY MOUTH EVERY 4 TO 6 HOURS NEEDED FOR PAIN MAX OF THREE PER DAY, hold within 4 hrs of planned sleep FOR 28 DAYS 07/22 completed Not Available Not Available Not Available sertralin e 50 mg tablet TAKE 1 TABLET BY MOUTH EVERY DAY AT BEDTIME active Not Available Not Available No t Available magnesium 250 mg (as magnesium oxide) tablet Take by oral route. active Not Available Not Available No t Available duloxetin e 20 mg capsule,d elayed release take 1 capsule BY MOUTH EVERY DAY FOR 30 DAYS active Not Available Not Available No t Available calcium carbonate daily 07/03 completed Not Available Not Available Not Available carvedilo l two times daily 12/24 completed 0; Recorded 05/25/20 22 2:05PM by Citlaly Avalos, Office Visit; Not Available Not Available Not Available Tylenol PM Extra Strength active Not Available Not Available Not Available Vitamin D3 daily 09/27 completed 0; Recorded 05/25/20 22 2:05PM by Citlaly Avalos, Office Visit; Not Available Not Available Not Available gabapenti n two times daily 12/24 completed cs/smf; [id number]; Recorded 12/05/19 23 7:29AM by Izabella Null RN (Authori ramakrishna through Castro Hinson DO), Refill Request; Mail Order Quantity : 360 Tablet; Refill Quantity : 180; Tablet; Not Available Not Available Not Available Potassium Chloride ER daily 07/03 completed Not Available Not Available Not Available duloxetin e daily 12/24 completed cs/smf; 20957; Recorded 08/01/20 22 11:58AM by Izabella Null RN (Authori ramakrishna through Castro Hinson DO), Refill Request; Refill Quantity : 30; Capsule; Not Available Not Available Not Available FeroSul 325 mg (65 mg iron) tablet TAKE 1 TABLET BY MOUTH EVERY DAY 07/08 completed Not Available Not Available Not Available Prolia every six months 07/03 completed Not Available Not Available Not Available Dificid two times daily 12/24 completed Recorded 06/08/20 2:14PM by Castro Hinson DO, Office Visit; Refill Quantity : 0; Not Available Not Available Not Available Myrbetriq 25 mg tablet,ex tended release Take 1 tablet every day by oral route. 07/08 completed Not Available Not Available Not Available baclofen 5 mg tablet TAKE 1 TABLET BY MOUTH THREE TIMES DAILY NEEDED 07/22 completed Not Available Not Available Not Available Vitals Date Recorded Body height Body mass index (BMI) Body weight Body temperature Oxygen saturation Oxygen saturation in Arterial blood by Pulse oximetry Heart rate Systolic And Diastolic Provider Name and Address Organization Details Last Updated DateTime 5 162.56 cm 18.5 kg/m2 08453.1 8 g 97.2 [degF] 95 % 95 % 74 /min 160/84 mm[Hg] MATTHEW DAVID [facility] 5 14:29:39 Date Recorded Body height Body mass index (BMI) Body weight Body temperature Oxygen saturation Oxygen saturation in Arterial blood by Pulse oximetry Heart rate Systolic And Diastolic Provider Name and Address Organization Details Last Updated DateTime 5 162.56 cm 18 kg/m2 58574.2 g 97.5 [degF] 94 % 94 % 68 /min 134/70 mm[Hg] Yohana Rodriguez [facility] 5 11:46:14 Date Recorded Body height Respiratory rate Heart rate Oxygen saturation Oxygen saturation in Arterial blood by Pulse oximetry Systolic And Diastolic Provider Name and Address Organization Details Last Updated DateTime 4 162.56 cm 20 /min 74 /min 98 % 98 % 152/70 mm[Hg] ABDI NULL [facility] 4 11:43:35 Date Recorded Body height Heart rate Oxygen saturation Oxygen saturation in Arterial blood by Pulse oximetry Systolic And Diastolic Systolic And Diastolic Provider Name and Address Organization Details Last Updated DateTime 4 162.56 cm 74 /min 98 % 98 % 100/52 mm[Hg] 112/52 mm[Hg] MARITA ZUÑIGA [facility] 4 10:51:18 Date Recorded Body height Body mass index (BMI) Body weight Respiratory rate Heart rate Oxygen saturation Oxygen saturation in Arterial blood by Pulse oximetry Systolic And Diastolic Provider Name and Address Organization Details Last Updated DateTime 4 162.56 cm 18.5 kg/m2 29536.9 8 g 18 /min 73 /min 94 % 94 % 148/72 mm[Hg] ABDI NULL [facility] 4 12:01:33 Social History Question Answer Notes LastModified by [employer] [facility] Details LastModified Time Tobacco Smoking Status Never Smoker ABDI NULL [facility] 03/27/2023 15:40:23 Are You Blind Or Do You Have Difficulty Seeing? No [email or web address] Information not available 03/27/2023 Are You Deaf Or Do You Have Serious Difficulty Hearing? No [email or web address] Information not available 03/27/2023 Have You Had Direct Contact, Or Contact During Intimacy, With Monkeypox Rash, Scabs, Or Body Fluids From A Person With Monkeypox? No [email or web address] Information not available 03/27/2023 What Was The Date Of Your Most Recent Tobacco Screening? 07/08/2025 [email or web address] Information not available 07/08/2025 Have You Recently Traveled Abroad? No [email or web address] Information not available 03/27/2023 Do You Have Difficulty Walking Or Climbing Stairs? No [email or web address] Information not available 03/27/2023 Sex: Unknown Functional Status Question Answer Note LastModified by [employer] [facility] Details LastModified Time Are you able to walk independently without assistance or assistive devices? YESWOREST [email or web address] Information not available 03/27/2023 Do you have difficulty doing errands alone? No Information not available 03/27/2023 Are you able to care for yourself independently? Yes [email or web address] Information not available 03/27/2023 Do you have difficulty dressing, bathing, grooming, or toileting? No [email or web address] Information not available 03/27/2023 Mental Status Question Answer Note LastModified by Organization D etails LastModified Time Do you have difficulty concentrating, remembering or making decisions? No Information no t available 03/27/2023 Family History Nothing Reported Notes:Hypertension, Hypercho lesterolemia, Diabetes Mellitus, Bleeding disorder, CVA, thyroid disorder, Breast Cancer, thyroid CA, COPD, 3 Bros; of AAA. DM. Prostate Ca. Carotid Dz. CAD., Geroge; of CHF., Susan; of [place]. HTN. DM. CVA. Alzheimer's. Medical History No medical history recorded. Gynecological HistoryNo gynecological history recorded. Obstetrics History GPAL:G 0 P 0 0 0 0 Immunizations Vaccine Type Date Status Note Provider Nam e and Address Organization Details Recorded Time Influenza, adjuvanted, trivalent, PF [facility] 12:43:14 Tdap 9 [facility] 06/28/2024 08:17:36 Influenza, split virus, trivalent, preservative 8 completed [facility] 06/28/2024 08:17:36 Influenza, adjuvanted, trivalent, PF 9 completed [facility] 06/28/2024 08:17:36 Influenza, adjuvanted, quadrivalent, PF 2 completed [facility] 06/28/2024 08:17:36 COVID-19, mRNA, LNP-S, PF, 100 mcg/0.5mL dose or 50 mcg/0.25mL dose 1 completed [facility] 06/28/2024 08:17:36 COVID-19, mRNA, LNP-S, PF, 100 mcg/0.5mL dose or 50 mcg/0.25mL dose [address] [facility] 06/28/2024 08:17:36 COVID-19, mRNA, LNP-S, PF, 100 mcg/0.5mL dose or 50 mcg/0.25mL dose 1 completed [address] [facility] 06/28/2024 08:17:36 COVID-19, mRNA, LNP-S, bivalent, PF, 50 mcg/0.5 mL or 25mcg/0.25 mL dose 2 completed [address] [facility] 06/28/2024 08:17:36 Influenza, high-dose, trivalent, PF 7 completed [address]gi [facility] [facility] 06/28/2024 08:17:36 Influenza, high-dose, trivalent, PF 8 completed [address]aggi [facility] [facility] 06/28/2024 08:17:36 Influenza, split virus, trivalent, preservative 4 completed [address] [facility] 06/28/2024 08:17:36 Influenza, split virus, trivalent, PF 6 completed [address] [facility] 06/28/2024 08:17:36 Influenza, split virus, trivalent, PF 6 completed Maria [address]aggi Al[address] [facility] 06/28/2024 08:17:36 Influenza, split virus, quadrivalent, PF 1 completed Maria [address]iamaggi Al[address] [facility] 06/28/2024 08:17:36 Influenza, split virus, quadrivalent, PF 4 completed Not Available [facility] 07/08/2025 11:40:53 COVID-19, mRNA, LNP-S, PF, 50 mcg/0.5 mL 4 completed Not Available [facility] 07/08/2025 11:40:53 Past Encounters Encounter ID Performer Location Encounter Start Date Encounter Closed Date Diagnosis/Indication Diagnosis SNOMED-CT Code Diagnosis ICD10 Code Diagnosis IMO Codes Diagnosis Note [id number] Castro Hinson DO [facility] ([facility]) [address] [place] [address] [id number] 5 03/27/2023 15:28:41 03/27/2023 20:34:09 Ganglion cyst of right hand 6925791197 57749 M67.441 reassured on hand 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 10285707 M51.34 discussed she would need to go back to pain clinic if wanted narcotics again Mixed urin frankie incontinence 961872163 N39.46 Syncope 320714351 R55 hospital records reviewed and work up negative outside of brief bradycardi a [id number] Castro Hinson DO [facility] ([facility]) [address] [place] [address] [id number] 5 07/10/2023 14:00:49 07/10/2023 14:36:34 Chronic pain 29444411 G89.29 previously followed with pain clinic Anemia 523089232 D64.9 [id number] Castro Hinson DO [facility] ([facility]) [address] [place] [address] [id number] 5 07/31/2023 11:19:16 07/31/2023 13:21:04 Osteoarthritis of right knee joint 8770391838 95089 M17.11 [id number] CIPRIANO COX [facility] ([facility]) [address] [place] [address] [id number] 5 08/26/2023 12:02:17 08/26/2023 14:00:31 Swelling of ankle joint 184134870 M25.471 Pain of right calf 52246 26876 531166 M79.661 Chronic low back pain 27 6885226 M54.50 [id number] Castro Hinson DO [facility] ([facility]) [address] [place] [address] [id number] 5 09/27/2023 12:11:11 09/27/2023 12:52:53 Pain of right calf 6876202575 269876 M79.661 Chronic low back pain 27 4904843 M54.50 Chronic pain 43250756 G8 9.29 previously followed with pain clinic Pain of ri ght ankle joint 4834859311 9197467 M25.571 Pain in limb 79580606 M7 9.573 [id number] CIPRIANO COX [facility] ([facility]) [address] [place] [address] [id number] 5 09/05/2023 16:12:50 09/05/2023 18:23:42 [id number] Castro Hinson DO [facility] ([facility]) [address] [place] [address] [id number] 5 12/25/2023 13:56:14 12/25/2023 14:51:06 Benign hypertension 28492922 I10 Chronic pain 83985459 G8 9.29 previously followed with pain clinic Osteoarthritis 864966020 M19.90 [id number] Castro Hinson DO [facility] ([facility]) [address] [place] [address] [id number] 5 05/20/2024 14:43:23 05/20/2024 15:44:18 Benign hypertension 09437206 I10 Abdominal pain 51367862 R10.9 Diarrhea 20185464 R19.7 Irritable bowel syndrome with diarrhea 979753313 K58.0 [id number] DANAE JOEL APRN [facility] ([facility]) [address] [place] [address] [id number] 5 06/28/2024 08:08:07 06/28/2024 09:55:43 [id number] CIPRIANO COX [facility] ([facility]) [address] [place] [address] [id number] 5 07/03/2024 14:17:48 07/03/2024 18:48:12 Benign hypertension 22403765 I10 Follow-up from the ER. Generalize d anxiety disorder 80316229 F41.1 [id number] Castro Hinson DO [facility] ([facility]) [address] [place] [address] [id number] 5 07/22/2024 11:25:58 07/22/2024 12:51:37 Benign hypertension 49420833 I10 Hypercholesterolemia 136 86473 E78.00 Iron defic iency anemia 08579454 D50.9 Generalize d anxiety disorder 67048290 F41.1 [id number] CIPRIANO COX [facility] ([facility]) [address] [place], [place] [id number] 07/25/2024 10:28:24 07/25/2024 11:30:51 Muscle weakness 68610016 M62.81 Medication s reviewed and updated. Hyponatremia 19356834 E8 7.1 [id number] Castro Hinson DO [facility] ([facility]) [address] [place], [place] [phone] 5 08/14/2024 11:55:44 08/14/2024 15:23:41 Hyponatremia 32542931 E87.1 Anxiety 76626383 F41.9 Abnormal g ait due to muscle weakness 526480722 M62.81 [id number] Paige Ackerman MD [facility] ([facility]) [address] [place] [address] [id number] 5 11/11/2024 14:14:15 11/11/2024 15:08:33 Osteoporosis 00421235 M81.0 We will obtain labs today. The patient is due for Prolia shot on November 28 Anemia 055549559 D64.9 Check blood count. Continue iron Hypertensi ve heart disease with congestive heart failure 5572074 I11.0 Hypercholesterolemia 136 05383 E78.00 Anxiety 72405762 F41.9 Benign hypertension 1072 5009 I10 Continue to monitor blood pressure and follow cardiology guidelines for blood pressure management . Overactive urinary bladder 318929523 N32.81 Osteoarthritis 912563128 M19.90 Congestive heart failure 56753546 I50.9 Moderate r ecurrent major depression 17991100 F33.1 [id number] Paige Ackerman MD [facility] ([facility]) [address] [place] [address] [id number] 5 07/08/2025 11:40:16 07/08/2025 12:56:25 Polyneuropathy 43885356 G62.9 [id number] Patient has signs and symptoms suggestive of polyneurop athy Chronic low back pain 27 2893093 M54.50 G89.29 [id number] Patient is having persistent mid low back pain. Patient would benefit from physical therapy to help manage her pain, core strengthen ing. Will also provide some tramadol to use as needed to help with pain. Health Concerns Section Related Observation LastModified by Organization Detai ls LastModified Time None Recorded Concern Status LastModified by Organization Details LastModified Time None Recorded Advance Directives Directive None Recorded Payers Insurance Date Sequence Insurance Name Policy Number Policy Bustos Covered Member ID Bustos Member ID Guarantor Name 07/08/2025 1 [place]ICARE [place]: [employer] Dodie Forde Alannah [id number] Dodie Forde Alannah 07/14/2025 2 [employer] Dodie Forde Alannah [id number] Dodie Forde Alannah 07/08/2025 [place] - [place] A - [facility] (MEDICARE) Dodie Forde Alannah [id number] Dodie Forde Alannah Notes Date Note Type Note Provider Name and Address Organization Details Recorded Time 07/22/2024 text/html Anxiety/Depressi onRepo rted by PatientHPIFor severity, patient reportsmood worseandincreased anxietybut reportsdenies suicidal ideations. For associated symptoms, patient reportsanxiety,grievin g,insomnia,feeling guilty,paranoid, feeling persecuted, andpanic symptoms.ROS as noted in the HPI Castro Hinson, [address], [phone], [facility] 07/22/2024 12:05:04 08/14/2024 text/html Anxiety/Depressi onRepo rted by PatientHPIFor severity, patient reportsmood worseandincreased anxietybut reportsdenies suicidal ideations. For associated symptoms, patient reportsanxiety,grievin g,insomnia,feeling guilty,paranoid, feeling persecuted, andpanic symptoms.ROS as noted in the HPI [facility] 12:44:44 11/11/2024 text/html This is an 88-year-old female that comes in today to establish care. The patient was previously Dr. Hinson. Patient states that she is almost due for her Prolia shot and needs to get her lab work done. Patient has been having issues with her blood pressure and has been seeing Dr. Munoz. Dr. Munoz has made adjustment to her medications and she is monitoring her pressures now. The patient recently sent a log to Dr. Munoz but has not heard anything back. Otherwise, her chronic medical issues are stable. Has noticed a little bit of fatigue and is worried about her blood count given her history of anemia. Paige Ackerman MD [address] [place] [address], [phone], [facility] 11/14/2024 09:17:40 07/08/2025 text/html Pt here today to discuss the tingling sensation bilateral legs, feeling of being asleep, numbnessPt has skin tear on her right arm that friend would like for it to be looked at.Pt has a spot mid back that is sore to the touch that she would like to have assessed.Pt also has dark purple bruises all over her body that have appeared randomly. Paige Ackerman MD [address] [place] [address], [phone], [facility] 07/10/2025 12:02:08 OBGyn Episode No OBEpisode recorded.
--- NOTE | 2025-08-24 09:20 | XRR_ITS ---
PROCEDURE INFORMATION: Exam: XR Chest Exam date and time: 08/24/2025 9:48 AM Age: 89 years old Clinical indication: Cough; Additional info: Cough; Congestion; Weakness TECHNIQUE: Imaging protocol: Radiologic exam of the chest. Views: 1 view. COMPARISON: CR XR chest 1V portable [id number] 06/28/2024 8:24 AM FINDINGS: Lungs: Chronic appearing interstitial lung markings. Patchy alveolar infiltrates are noted in the lateral right upper lung and right lower lung. Pleural spaces: No pleural effusion. No pneumothorax. Heart/Mediastinum: Stable cardiomegaly. Bones/joints: No acute bony abnormality. XR/XR chest 1V portable [id number] IMPRESSION: Patchy alveolar infiltrates are noted in the lateral right upper lung and right lower lung. Findings may be infectious/inflammatory in nature. Recommend clinical correlation and follow-up imaging as clinically warranted.
--- NOTE | 2025-08-24 09:20 | CTR_ITS ---
PROCEDURE INFORMATION: Exam: CT Cervical Spine Without Contrast Exam date and time: 08/24/2025 10:24 AM Age: 89 years old Clinical indication: Injury or trauma; Fall; Blunt trauma; Additional info: Fall/syncope? TECHNIQUE: Imaging protocol: Computed tomography of the cervical spine without contrast. Radiation optimization: All CT scans at this facility use at least one of these dose optimization techniques: automated exposure control; mA and/or kV adjustment per patient size (includes targeted exams where dose is matched to clinical indication); or iterative reconstruction. COMPARISON: None RADIATION DOSE METRICS: Total DLP (mGy-cm): 157.4 FINDINGS: Bones/joints: The cervical vertebral body heights are maintained. There is a 0.3 cm anterolisthesis of C2 on C3, C3 on C4 and C4 on C5. There is a 0.3 cm retrolisthesis of C5 on C6. Reversal of the normal cervical curvature. The facet joints are not jumped or perched. Moderate disc space narrowing at C3/C4 and C5/C6. Mild disc space narrowing at C4/C5. C2-C3: The spinal canal is patent. Moderate left neuroforaminal narrowing secondary to uncovertebral and facet hypertrophy. C3-C4: Spinal canal is patent. Mild right and moderate left neuroforaminal narrowing secondary to uncovertebral and facet hypertrophy. C4-C5: The spinal canal is patent. Mild right and moderate left neuroforaminal narrowing secondary to uncovertebral and facet hypertrophy. C5-C6: Broad-based disc osteophyte complex with mild central canal stenosis. Moderate bilateral neuroforaminal narrowing secondary to uncovertebral and facet hypertrophy. C6-C7: No significant disc bulge or herniation. No severe spinal canal stenosis. No significant neuroforaminal narrowing. C7-T1: No significant disc bulge or herniation. No severe spinal canal stenosis. No significant neuroforaminal narrowing. Lungs: Biapical lung scarring. Soft tissues: Bilateral carotid bulb calcifications. CT/CT cervical spin wo con* [id number] IMPRESSION: No acute bony abnormality. Degenerative changes of the cervical spine. If symptoms persist, consider further evaluation with MRI, if there are no contraindications to obtaining a MRI scan.
--- NOTE | 2025-08-24 09:20 | CTR_ITS ---
PROCEDURE INFORMATION: Exam: CT Head Without Contrast Exam date and time: 08/24/2025 10:24 AM Age: 89 years old Clinical indication: Injury or trauma; Fall; Blunt trauma (contusions or hematomas); Loss of consciousness unknown; Additional info: Fall/syncope? TECHNIQUE: Imaging protocol: Computed tomography of the head without contrast. Radiation optimization: All CT scans at this facility use at least one of these dose optimization techniques: automated exposure control; mA and/or kV adjustment per patient size (includes targeted exams where dose is matched to clinical indication); or iterative reconstruction. COMPARISON: CT head wo con* [id number] 07/23/2024 12:46 PM RADIATION DOSE METRICS: Total DLP (mGy-cm): 980.3 FINDINGS: Brain: Severe nonspecific white matter low attenuation which may be related to microvascular ischemic changes. Left basal ganglia lacune. Right caudate head lacune. No acute confluent lobar ischemic infarct. No acute intracranial hemorrhage. Cerebral ventricles: The ventricles and sulci are prominent in size compatible with moderate atrophy. Paranasal sinuses: No fluid levels. Mastoid air cells: Visualized mastoid air cells are well aerated. Bones: No acute calvarial fracture. Soft tissues: Visualized soft tissues are unremarkable. CT/CT head wo con* [id number] IMPRESSION: No acute intracranial abnormality. If symptoms persist, consider further evaluation with MRI, if there are no contraindications to obtaining a MRI scan.
--- NOTE | 2025-08-24 09:22 | W.ED.WEAKNES ---
Documented by User: KALIE Kebede 08/24/25 11:09 HPI - Weakness General: Chief complaint: Fall Stated complaint: weakness; fall Time Seen by Provider: 08/24/25 09:13 Source: patient and EMS Mode of arrival: EMS Limitations: no limitations History of Present Illness: Patient is a nice 89-year-old female with multiple comorbidities including HTN, tricuspid regurgitation, thoracic aortic aneurysm, dyslipidemia, osteoporosis, history of CVA, chronic back pain, chronic lower extremity neuropathy, among others here after her son found her in the floor of her bathroom this morning and had reported she was weak. Patient is pleasant and alert and oriented upon arrival. She tells me she went to the bathroom around 7 AM this morning and felt very weak. She is not sure if she fell or lowered herself to the floor but states she did not have any episodes of loss of consciousness. She states her son who is visiting and staying with them found her in the bathroom floor and contacted EMS. Patient upon arrival does not have any physical complaints other than feeling generally weak. EMS states she had told them she has had cough and congestion over the past 2 days. She was reportedly satting normal on room air while at rest but when they got her up and ambulated her to the stretcher, she desatted to 85%. Patient states she has not had any recent fevers. MD Complaint: generalized weakness Onset (ago): day(s) Duration: constant Location: generalized Migration: none Severity: moderate Relieving factors: none Exacerbating factors: none Associated symptoms: Reports other (cough/congestion); Denies chest pain, chills, confusion, dysuria, fever(s), headache(s), nausea, syncope or vomiting Related Data Home Medications ?Medication ?Instructions ?Recorded ?Confirmed meloxicam 7.5 mg tablet 7.5 mg PO DAILY 06/28/24 08/24/25 acetaminophen 500 mg capsule 1,000 mg PO Q6H PRN Pain 05/22/25 08/24/25 duloxetine 20 mg capsule,delayed 20 mg PO DAILY 05/22/25 08/24/25 release carvedilol 25 mg tablet 25 mg PO BID 08/24/25 08/24/25 furosemide 20 mg tablet 20 mg PO DAILY 08/24/25 08/24/25 isosorbide mononitrate 120 mg 120 mg PO DAILY 08/24/25 08/24/25 tablet,extended release 24 hr potassium chloride 8 mEq 8 meq PO DAILY 08/24/25 08/24/25 capsule,extended release sertraline 50 mg tablet 50 mg PO BEDTIME 08/24/25 08/24/25 tramadol 50 mg tablet 50 mg PO DAILY PRN Pain 08/24/25 08/24/25 vitamin B complex 1 tab PO DAILY 08/24/25 08/24/25 Previous Rx's ?Medication ?Instructions ?Recorded nitroglycerin 0.4 mg sublingual See Rx Instructions .Route 10/17/23 tablet .COMPLEX #30 tabs pravastatin 80 mg tablet 80 mg PO DAILY #90 tabs 12/27/24 valsartan 320 mg tablet 320 mg PO QAM #90 tabs 01/27/25 amlodipine 2.5 mg tablet 2.5 mg PO DAILY HTN 30 days #30 05/12/25 tabs hydralazine 50 mg tablet 100 mg (2 x 50 mg) PO TID #540 tabs 05/19/25 Allergies Allergy/AdvReac Type Severity Reaction Status Date / Time aspirin AdvReac ABDOMINAL Verified 05/12/25 14:39 PAIN iodine AdvReac UNKNOWN Verified 05/12/25 14:39 metoprolol (From Toprol XL) AdvReac UNKNOWN Verified 05/12/25 14:39 Review of Systems Const: Reports: fatigue; Denies: fever(s), chills or body aches Eyes: Denies: change in vision or blurry vision Card: Denies: chest pain, palpitations, irregular heart rhythm, edema, swelling of feet/ankles, lightheadedness, syncope, pre-syncope, orthopnea, leg pain with exertion or acrocyanosis Resp: Reports: productive cough and chest congestion; Denies: dyspnea, wheezing or pain on inspiration GI: Denies: abdominal pain, nausea, vomiting, heartburn or diarrhea : Denies: dysuria Musc: Denies: neck pain, back pain or joint pain Skin/Breast: Denies: rash Neuro: Reports: sensory changes (chronic LE neuropathy); Denies: headache(s), weakness in extremities, lack of coordination, dizziness, confusion, behavioral changes, Slurred speech present, difficulty communicating thoughts or seizure-like activity PFSH ED PFSH: Medical History Fibromyalgia C. 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 Cassidy Neuroradiology [place] [id number] History of lumbar laminectomy for spinal cord decompression [facility] [place] Status post lumbar surgery 01/14/09- [facility] Family History Father Congestive heart failure (CHF) CAD (coronary artery disease) Sister No problems noted. Mother CAD (coronary artery disease) Diabetes Dementia Family/Other Diabetes Other Heart disease Hyperlipidemia Hypertension Denies family history of Clotting disorder Chronic kidney disease (CKD) Suicide Anesthesia complication Bleeding disorder Lung disease Cancer Stroke Social History Smoking and tobacco/nicotine status: former use of tobacco/nicotine (last tobacco 30+ years ago) Second hand smoke exposure: No Alcohol intake: never Substance/Drug Use: never Household members: spouse Marital status details: Spouse 10 years older than her Physical Exam Const: COMMON NORMALS: no acute distress, average body habitus, patient oriented x3, no limitations, healthy appearing, alert and well nourished GENERAL APPEARANCE: frail appearing ORIENTATION/CONSCIOUSNESS: Yes awake, Yes oriented to person, Yes oriented to place and Yes oriented to time HENMT: FACE & SINUS: normal facial exam MOUTH: other (mildly hoarse voice) THROAT: posterior oropharynx normal and tonsils normal Neck/C-Spine: COMMON NORMALS: no lymphadenopathy and no JVD Chest: COMMONS NORMALS: normal inspection of the chest and normal palpation of entire chest wall Resp: COMMON NORMALS: normal respiratory effort AUSCULTATION: rhonchi OTHER: hypoxia requriring oxygen Cardio: COMMON NORMALS: no JVD, regular rate and regular rhythm RATE: regular rate RHYTHM: regular rhythm GI: COMMON NORMALS: Normal to inspection, nondistended, normoactive bowel sounds present, Soft to palpation and non-tender PALPATION: Yes Soft to palpation : COMMON NORMALS: Yes no CVA tenderness BLADDER/KIDNEY EXAM: Yes no CVA tenderness Back/Pelvis: COMMON NORMALS: no CVA tenderness Extremity: COMMON NORMALS: normal to inspection, capillary refill normal, no clubbing, cyanosis or edema, no calf tenderness and no pedal edema GENERAL: Yes normal exam except as noted Neuro: LUIZ COMA SCALE: document GCS findings [place] coma scale eye opening: Spontaneous Luiz coma scale verbal response: Orientated [place] coma scale motor response: Obey commands Luiz coma scale total score: 15 COMMON NORMALS: patient oriented x3, moves all extremities, no focal motor deficits and no sensory deficits noted SENSORIUM/ORIENTATION: Yes alert, Yes oriented to person, Yes oriented to place and Yes oriented to time Skin: COMMON NORMALS: no rashes or lesions noted GENERAL SKIN EXAM: no rashes or lesions noted Course Consultations: Consultation #1: Dr. Pan-accepts hospitalization Vital Signs: Vital signs: Vital Signs Temperature 98.6 F 08/24/25 09:12 Pulse Rate 81 08/24/25 11:09 Respiratory Rate 16 08/24/25 11:09 Blood Pressure 126/64 08/24/25 11:09 Pulse Oximetry 92 08/24/25 11:09 Oxygen Delivery Me thod Nasal Cannula 08/24/25 11:09 Oxygen Flow Rate 2 08/24/25 11:09 MDM - Weakness Medical Decision Making Patient is a nice 89-year-old female here with her son with a main concern of weakness as well as cough and congestion and hoarseness over the past 2 days. After speaking with the son, she did not experience a fall in her bathroom this morning. She states she was on the toilet and was too weak to get herself up off of the toilet thus lowered herself to the ground and was found shortly after by her son. There was no prolonged period of downtime. Patient arrived to the emergency department hypoxic requiring 2 L of oxygen. CXR is consistent with patchy alveolar infiltrates in her right upper and lower lung grimes consistent with pneumonia. Blood work showing a normal white count. She has chronic anemia. Chemistry is unremarkable. She does have elevations to her BNP. No history of congestive heart failure and new onset CHF would also be in the differential. She clinically does not appear fluid overloaded. Patient was started on IV antibiotics will be admitted to the hospitalist. COVID/flu/RSV swab was negative. She did have CT head/cervical spine performed due to unknown history of fall during initial presentation. Medical Records I reviewed the patient's medical records. Lab Data I reviewed the patient's lab results. 08/24/25 09:20 08/24/25 09:20 Radiology Impressions Cervical Spine CT 08/24/25:20 IMPRESSION: No acute bony abnormality. Degenerative changes of the cervical spine. If symptoms persist, consider further evaluation with MRI, if there are no contraindications to obtaining a MRI scan. Chest X-Ray 08/24/25:20 IMPRESSION: Patchy alveolar infiltrates are noted in the lateral right upper lung and right lower lung. Findings may be infectious/inflammatory in nature. Recommend clinical correlation and follow-up imaging as clinically warranted. Head CT 08/24/25:20 IMPRESSION: No acute intracranial abnormality. If symptoms persist, consider further evaluation with MRI, if there are no contraindications to obtaining a MRI scan. Laboratory Results WBC 9.43 10^3/uL (3.29-11.43) 08/24/25 09:20 RBC 2.76 10^6/uL (3.85-5.65) L 08/24/25 09:20 Hgb 9.40 g/dL (11.27-16.99) L 08/24/25 09:20 Hct 27.2 % (36-47) L 08/24/25:20 MCV 98.6 fl (85-98) H 08/24/25 09:20 MCH 34.1 pg (27-33) H 08/24/25 09:20 MCHC 34.6 g/dL (30-55) 08/24/25:20 RDW 12.3 % (12.1-15.1) 08/24/25 09:20 Plt Count 137 10^3/cmm (157-399) L 08/24/25 09:20 MPV 11.1 fL (7.4-10.4) H 08/24/25 09:20 Neut % (Auto) 74.8 % 08/24/25 09:20 Lymph % (Auto) 9.8 % 08/24/25 09:20 Rock % (Auto) 14.4 % 08/24/25 09:20 Eos % (Auto) 0.2 % 08/24/25 09:20 Baso % (Auto) 0.4 % 08/24/25 09:20 Neut # (Auto) 7.05 10^3/uL (1.8-7.7) 08/24/25 09:20 Lymph # (Auto) 0.9 10^3/uL (0.8-4.8) 08/24/25 09:20 Rock # (Auto) 1.4 10^3/uL (0.2-0.9) H 08/24/25 09:20 Eos # (Auto) 0.0 10^3/uL (0.0-0.8) 08/24/25 09:20 Baso # (Auto) 0.0 10^3/uL (0.0-0.1) 08/24/25 09:20 Nucleated RBC % (auto) 0 % 08/24/25 09:20 Nucleated RBCs # 0.0 /100WBC 08/24/25 09:20 Sodium 131 mmol/L (136-145) L 08/24/25 09:20 Potassium 3.6 mmol/L (3.5-5.1) 08/24/25 09:20 Chloride 96 mmol/L (98-107) L 08/24/25 09:20 Carbon Dioxide 22 mmol/L (22-29) 08/24/25 09:20 Anion Gap 16.6 (5-19) 08/24/25 09:20 BUN 14 mg/dL (8-23) 08/24/25 09:20 Creatinine 0.5 mg/dL (0.5-0.9) 08/24/25 09:20 GFR Calculation Not Reportable 08/24/25 09:20 Glucose 108 mg/dL (65-115) 08/24/25 09:20 Calculated Osmolality 273 mOsm/kg (285-295) L 08/24/25 09:20 Lactic Acid 1.4 mmol/L (0.5-2.2) 08/24/25 09:20 Calcium 9.1 mg/dL (8.5-10.5) 08/24/25 09:20 Total Bilirubin 0.8 mg/dL (0.15-1.2) 08/24/25 09:20 AST 28 U/L (0-32) 08/24/25 09:20 ALT 16 U/L (0-33) 08/24/25 09:20 Alkaline Phosphatase 48 U/L (35-105) 08/24/25 09:20 Creatine Kinase 56 U/L (26-192) 08/24/25 09:20 Troponin T Baseline 37 ng/L (0-10) H 08/24/25 09:20 NT-Pro-B Natriuret Pep 4921 pg/mL (0-450) H 08/24/25 09:20 Total Protein 6.8 g/dL (6.6-8.7) 08/24/25 09:20 Albumin 4.1 g/dL (3.5-5.2) 08/24/25 09:20 Globulin 2.7 g/dL (1.3-4.6) 08/24/25 09:20 Procalcitonin 0.26 ng/mL (0-0.5) 08/24/25 09:20 Urine Color Yellow (Yellow) 08/24/25 09:48 Urine Appearance Turbid (CLEAR) A 08/24/25 09:48 Urine pH 6.5 (5-7) 08/24/25 09:48 Ur Specific [place] 1.015 (1.005-1.030) 08/24/25 09:48 Urine Protein 2+ (Negative) A 08/24/25 09:48 Urine Glucose (UA) Negative (Normal) 08/24/25 09:48 Urine Ketones Trace (Negative) 08/24/25 09:48 Urine Blood Negative (Negative) 08/24/25 09:48 Urine Nitrate Negative (Negative) 08/24/25 09:48 Urine Bilirubin Negative (Negative) 08/24/25 09:48 Urine Urobilinogen 1.0 mg/dL (Negative) 08/24/25 09:48 Ur Leukocyte Esterase Negative (Negative) 08/24/25 09:48 Urine RBC 21-50 /hpf (0-2) H 08/24/25 09:48 Urine WBC 6-10 /hpf (0-5) 08/24/25 09:48 Ur Squamous Epith Cells 0-5 /hpf (0-5) 08/24/25 09:48 Amorphous Sediment 1+ /hpf 08/24/25 09:48 Urine Bacteria 4+ /hpf (NONE) H 08/24/25 09:48 Hyaline Casts 1.65 /lpf 08/24/25 09:48 Influenza A (PCR) Negative (Negative) 08/24/25 09:33 Influenza Type B (PCR) Negative (Negative) 08/24/25 09:33 RSV (PCR) Negative (Negative) 08/24/25 09:33 SARS-CoV-2 (PCR) Negative (Negative) 08/24/25 09:33 All radiology interpretation(s) finalized by discharge Discharge Plan Discharge Patient Disposition: Admitted As Inpatient Admit Provider: Evan Pan Clinical Impression: Pneumonia involving right lung Qualifiers: Pneumonia type: due to unspecified organism Lung location: upper lobe of lung Qualified Code(s): J18.9 - Pneumonia, unspecified organism Condition: Stable Coding Level of Care Code ED Automatic Vulcanizing Operator for Chg Fwd Documented by User: Oleksandr Tobias MD 08/24/25 11:52 HPI - Weakness General: Chief complaint: Fall Stated complaint: weakness; fall Time Seen by Provider: 08/24/25 09:13 Related Data Home Medications ?Medication ?Instructions ?Recorded ?Confirmed meloxicam 7.5 mg tablet 7.5 mg PO DAILY 06/28/24 08/24/25 acetaminophen 500 mg capsule 1,000 mg PO Q6H PRN Pain 05/22/25 08/24/25 duloxetine 20 mg capsule,delayed 20 mg PO DAILY 05/22/25 08/24/25 release carvedilol 25 mg tablet 25 mg PO BID 08/24/25 08/24/25 furosemide 20 mg tablet 20 mg PO DAILY 08/24/25 08/24/25 isosorbide mononitrate 120 mg 120 mg PO DAILY 08/24/25 08/24/25 tablet,extended release 24 hr potassium chloride 8 mEq 8 meq PO DAILY 08/24/25 08/24/25 capsule,extended release sertraline 50 mg tablet 50 mg PO BEDTIME 08/24/25 08/24/25 tramadol 50 mg tablet 50 mg PO DAILY PRN Pain 08/24/25 08/24/25 vitamin B complex 1 tab PO DAILY 08/24/25 08/24/25 Previous Rx's ?Medication ?Instructions ?Recorded nitroglycerin 0.4 mg sublingual See Rx Instructions .Route 10/17/23 tablet .COMPLEX #30 tabs pravastatin 80 mg tablet 80 mg PO DAILY #90 tabs 12/27/24 valsartan 320 mg tablet 320 mg PO QAM #90 tabs 01/27/25 amlodipine 2.5 mg tablet 2.5 mg PO DAILY HTN 30 days #30 05/12/25 tabs hydralazine 50 mg tablet 100 mg (2 x 50 mg) PO TID #540 tabs 05/19/25 Allergies Allergy/AdvReac Type Severity Reaction Status Date / Time aspirin AdvReac ABDOMINAL Verified 05/12/25 14:39 PAIN iodine AdvReac UNKNOWN Verified 05/12/25 14:39 metoprolol (From Toprol XL) AdvReac UNKNOWN Verified 05/12/25 14:39 ON LICENSE OF [facility] ED PFS: Medical History Fibromyalgia C. 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 Cassidy Neuroradiology [facility] History of lumbar laminectomy for spinal cord decompression [place] [place] post [place] surgery 01/14/09- [facility] Huong Gama [facility] Family History Father Congestive heart failure (CHF) CAD (coronary artery disease) Sister No problems noted. Mother CAD (coronary artery disease) Diabetes Dementia Family/Other Diabetes Other Heart disease Hyperlipidemia Hypertension Denies family history of Clotting disorder Chronic kidney disease (CKD) Suicide Anesthesia complication Bleeding disorder Lung disease Cancer Stroke Social History Smoking and tobacco/nicotine status: former use of tobacco/nicotine (last tobacco 30+ years ago) Second hand smoke exposure: No Alcohol intake: never Substance/Drug Use: never Household members: spouse Marital status details: Spouse 10 years older than her Physical Exam Neuro: LUIZ COMA SCALE: document GCS findings Luiz coma scale total score: 15 Course Vital Signs: Vital signs: Vital Signs Temperature 98.6 F 08/24/25 09:12 Pulse Rate 81 08/24/25 11:09 Respiratory Rate 16 08/24/25 11:09 Blood Pressure 126/64 08/24/25 11:09 Pulse Oximetry 92 08/24/25 11:09 Oxygen Delivery Me thod Nasal Cannula 08/24/25 11:09 Oxygen Flow Rate 2 08/24/25 11:09 MDM - Weakness Medical Decision Making Patient is a nice 89-year-old female here with her son with a main concern of weakness as well as cough and congestion and hoarseness over the past 2 days. After speaking with the son, she did not experience a fall in her bathroom this morning. She states she was on the toilet and was too weak to get herself up off of the toilet thus lowered herself to the ground and was found shortly after by her son. There was no prolonged period of downtime. Patient arrived to the emergency department hypoxic requiring 2 L of oxygen. CXR is consistent with patchy alveolar infiltrates in her right upper and lower lung grimes consistent with pneumonia. Blood work showing a normal white count. She has chronic anemia. Chemistry is unremarkable. She does have elevations to her BNP. No history of congestive heart failure and new onset CHF would also be in the differential. She clinically does not appear fluid overloaded. Patient was started on IV antibiotics will be admitted to the hospitalist. COVID/flu/RSV swab was negative. She did have CT head/cervical spine performed due to unknown history of fall during initial presentation. Saw patient with above provider. History and physical. Patient is been having hypoxia here did review imaging along with EKG and agree with above midlevel as well will admit at this time to Dr. Pan Lab Data 08/24/25 09:20 08/24/25 09:20 Radiology Impressions Cervical Spine CT 08/24/25:20 IMPRESSION: No acute bony abnormality. Degenerative changes of the cervical spine. If symptoms persist, consider further evaluation with MRI, if there are no contraindications to obtaining a MRI scan. Chest X-Ray 08/24/25 09:20 IMPRESSION: Patchy alveolar infiltrates are noted in the lateral right upper lung and right lower lung. Findings may be infectious/inflammatory in nature. Recommend clinical correlation and follow-up imaging as clinically warranted. Head CT 08/24/25 09:20 IMPRESSION: No acute intracranial abnormality. If symptoms persist, consider further evaluation with MRI, if there are no contraindications to obtaining a MRI scan. Laboratory Results WBC 9.43 10^3/uL (3.29-11.43) 08/24/25 09:20 RBC 2.76 10^6/uL (3.85-5.65) L 08/24/25 09:20 Hgb 9.40 g/dL (11.27-16.99) L 08/24/25 09:20 Hct 27.2 % (36-47) L 08/24/25 09:20 MCV 98.6 fl (85-98) H 08/24/25 09:20 MCH 34.1 pg (27-33) H 08/24/25 09:20 MCHC 34.6 g/dL (30-55) 08/24/25 09:20 RDW 12.3 % (12.1-15.1) 08/24/25 09:20 Plt Count 137 10^3/cmm (157-399) L 08/24/25 09:20 MPV 11.1 fL (7.4-10.4) H 08/24/25 09:20 Neut % (Auto) 74.8 % 08/24/25 09:20 Lymph % (Auto) 9.8 % 08/24/25 09:20 Rock % (Auto) 14.4 % 08/24/25 09:20 Eos % (Auto) 0.2 % 08/24/25 09:20 Baso % (Auto) 0.4 % 08/24/25 09:20 Neut # (Auto) 7.05 10^3/uL (1.8-7.7) 08/24/25 09:20 Lymph # (Auto) 0.9 10^3/uL (0.8-4.8) 08/24/25 09:20 Rock # (Auto) 1.4 10^3/uL (0.2-0.9) H 08/24/25 09:20 Eos # (Auto) 0.0 10^3/uL (0.0-0.8) 08/24/25 09:20 Baso # (Auto) 0.0 10^3/uL (0.0-0.1) 08/24/25 09:20 Nucleated RBC % (auto) 0 % 08/24/25 09:20 Nucleated RBCs # 0.0 /100WBC 08/24/25 09:20 Sodium 131 mmol/L (136-145) L 08/24/25 09:20 Potassium 3.6 mmol/L (3.5-5.1) 08/24/25 09:20 Chloride 96 mmol/L (98-107) L 08/24/25 09:20 Carbon Dioxide 22 mmol/L (22-29) 08/24/25 09:20 Anion Gap 16.6 (5-19) 08/24/25 09:20 BUN 14 mg/dL (8-23) 08/24/25 09:20 Creatinine 0.5 mg/dL (0.5-0.9) 08/24/25 09:20 GFR Calculation Not Reportable 08/24/25 09:20 Glucose 108 mg/dL (65-115) 08/24/25 09:20 Calculated Osmolality 273 mOsm/kg (285-295) L 08/24/25 09:20 Lactic Acid 1.4 mmol/L (0.5-2.2) 08/24/25 09:20 Calcium 9.1 mg/dL (8.5-10.5) 08/24/25 09:20 Total Bilirubin 0.8 mg/dL (0.15-1.2) 08/24/25 09:20 AST 28 U/L (0-32) 08/24/25 09:20 ALT 16 U/L (0-33) 08/24/25 09:20 Alkaline Phosphatase 48 U/L (35-105) 08/24/25 09:20 Creatine Kinase 56 U/L (26-192) 08/24/25 09:20 Troponin T Baseline 37 ng/L (0-10) H 08/24/25 09:20 NT-Pro-B Natriuret Pep 4921 pg/mL (0-450) H 08/24/25 09:20 Total Protein 6.8 g/dL (6.6-8.7) 08/24/25 09:20 Albumin 4.1 g/dL (3.5-5.2) 08/24/25 09:20 Globulin 2.7 g/dL (1.3-4.6) 08/24/25 09:20 Procalcitonin 0.26 ng/mL (0-0.5) 08/24/25 09:20 Urine Color Yellow (Yellow) 08/24/25 09:48 Urine Appearance Turbid (CLEAR) A 08/24/25 09:48 Urine pH 6.5 (5-7) 08/24/25 09:48 Ur Specific [place] 1.015 (1.005-1.030) 08/24/25 09:48 Urine Protein 2+ (Negative) A 08/24/25 09:48 Urine Glucose (UA) Negative (Normal) 08/24/25 09:48 Urine Ketones Trace (Negative) 08/24/25 09:48 Urine Blood Negative (Negative) 08/24/25 09:48 Urine Nitrate Negative (Negative) 08/24/25 09:48 Urine Bilirubin Negative (Negative) 08/24/25 09:48 Urine Urobilinogen 1.0 mg/dL (Negative) 08/24/25 09:48 Ur Leukocyte Esterase Negative (Negative) 08/24/25 09:48 Urine RBC 21-50 /hpf (0-2) H 08/24/25 09:48 Urine WBC 6-10 /hpf (0-5) 08/24/25 09:48 Ur Squamous Epith Cells 0-5 /hpf (0-5) 08/24/25 09:48 Amorphous Sediment 1+ /hpf 08/24/25 09:48 Urine Bacteria 4+ /hpf (NONE) H 08/24/25 09:48 Hyaline Casts 1.65 /lpf 08/24/25 09:48 Influenza A (PCR) Negative (Negative) 08/24/25 09:33 Influenza Type B (PCR) Negative (Negative) 08/24/25 09:33 RSV (PCR) Negative (Negative) 08/24/25 09:33 SARS-CoV-2 (PCR) Negative (Negative) 08/24/25 09:33 Discharge Plan Discharge Patient Disposition: Admitted As Inpatient Admit Provider: Evan Pan Clinical Impression: Pneumonia involving right lung Qualifiers: Pneumonia type: due to unspecified organism Lung location: upper lobe of lung Qualified Code(s): J18.9 - Pneumonia, unspecified organism Condition: Stable Coding Level of Care Code ED Automatic Vulcanizing Operator for Jensen Sinclair
[2025-08-24 09:31] LABS: Hematocrit 27.2 % (36-47); Hemoglobin 9.40 g/dL (11.27-16.99); Mean Corpuscular HGB Conc 34.6 g/dL (30-55); Mean Corpuscular Hemoglobin 34.1 pg (27-33); Mean Corpuscular Volume 98.6 fl (85-98); Nucleated Red Blood Cells % 0 %; Platelet Count 137 10^3/cmm (157-399); Red Blood Count 2.76 10^6/uL (3.85-5.65); White Blood Count 9.43 10^3/uL (3.29-11.43)
--- NOTE | 2025-08-24 09:38 | ECG_ITS ---
[facility] Date: 2025-08-24 Pat Name: Dodie Jaffe Department: Room: Gender: Female Chain Maker Hand: : [id number] Requested By: Bernadette Blankenship Order Number: [id number] Delmi MD: Pato Herman M.D. Measurements Intervals Johnson Rate: 87 P: 83 TN: 246 QRS: 83 QRSD: 140 T: 64 QT: 375 QTc: 453 Interpretive Statements Normal Sinus Rhythm SINUS ARRHYTHMIA SEPTAL MYOCARDIAL INFARCTION, OF INDETERMINATE AGE ABNORMAL RHYTHM ECG Compared to ECG 07/23/2024 11:41:29 First degree AV block no longer present Intraventricular conduction delay no longer present Electronically Signed On 08-24-2025 14:11:09 DIRECTOR OF CURRICULUM by Pato Herman M.D. [email or web address]
[2025-08-24 09:48] LABS: Slide Review Slide Review Perform
[2025-08-24 09:52] LABS: Troponin(5th) Baseline 37 ng/L (0-10)
[2025-08-24 09:57] LABS: Glucose Urine UA Negative (Normal); Nitrate Urine Negative (Negative); Specific Gravity, Urine 1.015 (1.005-1.030)
[2025-08-24 10:02] LABS: NT Pro B Type Natriuretic Pept 4921 pg/mL (0-450); Procalcitonin 0.26 ng/mL (0-0.5)
[2025-08-24 10:02] LABS: Add Urine Microscopic? YES
[2025-08-24 10:13] LABS: Alanine Aminotransferase 16 U/L (0-33); Albumin Level 4.1 g/dL (3.5-5.2); Alkaline Phosphatase 48 U/L (35-105); Blood Urea Nitrogen 14 mg/dL (8-23); Calcium 9.1 mg/dL (8.5-10.5); Carbon Dioxide 22 mmol/L (22-29); Chloride 96 mmol/L (98-107); Creatinine Clr Calc Pharmacy 40.4037; Globulin 2.7 g/dL (1.3-4.6); Glucose 108 mg/dL (65-115); Osmolality Calculated 273 mOsm/kg (285-295); Sodium 131 mmol/L (136-145); Total Protein 6.8 g/dL (6.6-8.7)
[2025-08-24 10:15] LABS: UA Slide Review UA Slide Review Perf
[2025-08-24 10:17] LABS: Anion Gap 16.6 (5-19); Aspartate Amino Transferase 28 U/L (0-32); Potassium 3.6 mmol/L (3.5-5.1)
[2025-08-24 10:20] LABS: Respiratory Syncytial Virus Ce NEGATIVE (Negative); SARS-CoV-2 PCR NEGATIVE (Negative)
[2025-08-24 10:41] LABS: Lactic Sepsis W/Reflex 1.4 mmol/L (0.5-2.2)
[2025-08-24] MEDS: cefTRIAXone 1,000 mg SDV 1000 MG IVP (11:17)
--- NOTE | 2025-08-24 11:21 | ECG_ITS ---
[email or web address] 2025-[facility]24 Pat Name: Dodie Jaffe Department: Room: ED Gender: Female Data Recovery Planner: : 1935 Requested By: Bernadette Blankenship Order Number: [id number] Delmi MD: Pato Herman M.D. Measurements Intervals [place] Rate: 70 P: 81 CO: 257 QRS: 78 QRSD: 136 T: 41 QT: 415 QTc: 450 Interpretive Statements SINUS RHYTHM WITH FIRST DEGREE AV BLOCK WITH OCCASIONAL SUPRAVENTRICULAR PREMATURE COMPLEXES INTRAVENTRICULAR CONDUCTION DELAY [130+ ms QRS DURATION] VOLTAGE CRITERIA FOR LVH [MEETS CRITERIA IN ONE OF: R(aVL), S(V1), R(V5), R(V5/V6)+S(V1)] POSSIBLE SEPTAL MYOCARDIAL INFARCTION , OF INDETERMINATE AGE [30 ms Q WAVE IN V1/V2] Compared to ECG 08/24/2025 09:38:35 SINUS ARRHYTHMIA NO LONGER PRESENT Electronically Signed On 08-24-2025 14:14:23 REED PRESS FEEDER by Pato Herman M.D. [id number]
[2025-08-24 11:31] LABS: Troponin 5 2HR 34.25 ng/L (0-10); Troponin 5 2HR Delta -2.75 ABS# (0-10)
[2025-08-24] MEDS: alum-mag-hydroxide-sime 30 mL UDC PO (11:51)
[2025-08-24 12:52] LABS: Magnesium 1.6 mg/dL (1.7-2.3); Thyroid Stimulating Hormone 0.80 uIU/mL (0.27-4.20)
[2025-08-24] MEDS: pantoprazole 40 mg SDV IVP (13:20)
[2025-08-24] MEDS: heparin 5,000 unit/mL INJ 1 mL 5000 UNIT SUBCUT ×2 (13:23→23:56)
--- NOTE | 2025-08-24 15:21 | ECG_ITS ---
[facility] Test Date: 2025-08-24 Pat Name: Dodie Jaffe Department: Room: 267 Gender: Female Jewellery Designer: : 1935 Requested By: Bernadette Blankenship Order Number: [id number] Delmi MD: Katya Munoz M.D. Measurements Intervals [place] Rate: 79 P: 0 MT: 0 QRS: 73 QRSD: 138 T: 39 QT: 430 QTc: 495 Interpretive Statements ATRIAL FIBRILLATION INTRAVENTRICULAR CONDUCTION DELAY [130+ ms QRS DURATION] SEPTAL MYOCARDIAL INFARCTION , OF INDETERMINATE AGE [40+ ms Q WAVE IN V1/V2] Compared to ECG 08/24/2025 11:30:29 Sinus rhythm no longer present First degree AV block no longer present Left ventricular hypertrophy no longer present Myocardial infarct finding still present Electronically Signed On 08-26-2025 22:35:57 PUFF IRONER by Katya Munoz M.D. [email or web address] [id number]
--- NOTE | 2025-08-24 15:49 | PM.HP ---
Providers/Chief Complaint Admitting Physician: Evan Pan MD Primary Care Provider: Yinka Ackerman MD Chief Complaint: weakness; fall History of Present Illness As per the previous notes and the patient/family Dodie Jaffe is a 89 year old female with multiple comorbidities including HTN, tricuspid regurgitation, thoracic aortic aneurysm, dyslipidemia, osteoporosis, history of CVA, chronic back pain, chronic lower extremity neuropathy, among others here after her son found her in the floor of her bathroom this morning and had reported she was weak. Patient is pleasant and alert and oriented upon arrival. The patient's son was at bedside. ER consulted for possible pneumonia and further management as inpatient since she was desatting to late 80s History was taken from the son and the patient. She was doing well until in the morning when she went to the bathroom and was feeling really and could not get up. Her son reported that from the last few days she is having some features of congestion and cough that also affected her voice. And she has mild phlegm as well. There was no chest pain, chest pressure, abdominal pain or diarrhea. No syncope. There were no history of palpitations or any dizziness. The patient feels generalized tired secondary to coughing and congestion. The patient took her flu shot. No recent sick contacts or travels. No recent leg swellings, no orthopnea or PND. Rest of the review of system is unremarkable Review of Systems General: Reports: 10 or more systems reviewed and unremarkable except in HPI and below Medications/Allergies Home Medications ?Medication ?Instructions ?Recorded ?Confirmed ?Last Taken ?Type nitroglycerin 0.4 mg sublingual See Rx Instructions .Route 10/17/23 08/24/25 Unknown Rx tablet .COMPLEX #30 tabs meloxicam 7.5 mg tablet 7.5 mg PO DAILY 06/28/24 08/24/25 08/23/25 History pravastatin 80 mg tablet 80 mg PO DAILY #90 tabs 12/27/24 08/24/25 08/23/25 Rx valsartan 320 mg tablet 320 mg PO QAM #90 tabs 01/27/25 08/24/25 08/24/25 Rx amlodipine 2.5 mg tablet 2.5 mg PO DAILY HTN 30 days #30 05/12/25 08/24/25 08/23/25 Rx tabs hydralazine 50 mg tablet 100 mg (2 x 50 mg) PO TID #540 tabs 05/19/25 08/24/25 08/24/25 Rx acetaminophen 500 mg capsule 1,000 mg PO Q6H PRN Pain 05/22/25 08/24/25 Unknown History duloxetine 20 mg capsule,delayed 20 mg PO DAILY 05/22/25 08/24/25 08/23/25 History release carvedilol 25 mg tablet 25 mg PO BID 08/24/25 08/24/25 08/23/25 History furosemide 20 mg tablet 20 mg PO DAILY 08/24/25 08/24/25 08/23/25 History isosorbide mononitrate 120 mg 120 mg PO DAILY 08/24/25 08/24/25 08/23/25 History tablet,extended release 24 hr potassium chloride 8 mEq 8 meq PO DAILY 08/24/25 08/24/25 08/23/25 History capsule,extended release sertraline 50 mg tablet 50 mg PO BEDTIME 08/24/25 08/24/25 08/23/25 History tramadol 50 mg tablet 50 mg PO DAILY PRN Pain 08/24/25 08/24/25 Unknown History vitamin B complex 1 tab PO DAILY 08/24/25 08/24/25 08/23/25 History Allergies Allergy/AdvReac Type Severity Reaction Status Date / Time aspirin AdvReac ABDOMINAL Verified 05/12/25 14:39 PAIN iodine AdvReac UNKNOWN Verified 05/12/25 14:39 metoprolol (From Toprol XL) AdvReac UNKNOWN Verified 05/12/25 14:39 PFSH Acute PFSH: Medical History (Updated 08/24/25 @ 11:09 by KALIE Kebede) Fibromyalgia C. 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 Cassidy [facility] T12 History of lumbar laminectomy for spinal cord decompression [place]-[facility] [place] Status post lumbar surgery [facility] History Father Congestive heart failure (CHF) CAD (coronary artery disease) Sister No problems noted. Mother CAD (coronary artery disease) Diabetes Dementia Family/Other Diabetes Other Heart disease Hyperlipidemia Hypertension Denies family history of Clotting disorder Chronic kidney disease (CKD) Suicide Anesthesia complication Bleeding disorder Lung disease Cancer Stroke Social History Smoking and tobacco/nicotine status: former use of tobacco/nicotine (last tobacco 30+ years ago) Second hand smoke exposure: No Alcohol intake: never Substance/Drug Use: never Household members: spouse Marital status details: Spouse 10 years older than her Vitals/I&O/Wt Last Vital Signs Temp 98.6 F 08/24/25 09:12 Pulse 81 08/24/25 13:29 Resp 16 08/24/25 13:29 BP 102/55 08/24/25 13:29 Pulse Ox 91 08/24/25 13:29 O2 Del Method Nasal Cannula 08/24/25 13:29 O2 Flow Rate 2 08/24/25 13:29 08/24/25 08/24/25 08/24/25 05:59 14:59 22:59 Intake Total 250 / 250 Balance 250 / 250 Weight last 48 hrs Weight 52.163 kg Physical Exam Narrative: General: Alert and oriented, lying comfortably without any distress, able to speak in full sentences, on 2 to 3 L nasal cannula oxygen supplementation HEENT: Normocephalic, atraumatic, grossly unremarkable exam Cardio: Irregularly irregular rhythm with normal rate, normal S1-S2 without any murmurs, rubs, or gallops and JVD normal Respiratory: normal vascular breathing on auscultation with mild crackles on the right lower zone, no wheezes and no stridor GI: Abdomen soft, nontender, nondistended, normoactive bowel sounds present all 4 quadrants, Neuro: intact cranial nerves motor and sensory and cerebellar/coordination function without any focal neurological deficit Behavior: Appropriate and cooperative Extremities: Adequate palpable pulses, mild trace edema Data 08/24/25 09:20 08/24/25 09:20 Micro: Microbiology 08/24/25 11:10 Blood Culture - Preliminary Blood SPECIMEN COLLECTED 08/24/25 11:09 Blood Culture - Preliminary Blood SPECIMEN COLLECTED A&P Assessment and plan 1. Pneumonia involving right lung: Continue ceftriaxone and azithromycin Oxygen per protocol Chest physiotherapy Respiratory viral panel Echo repeat since the patient had TR and could be attributing to her shortness of breath OT PT evaluation for mobility Incentive spirometry 2. Normocytic anemia: Currently stable, continue to monitor No obvious source of bleeding 3. Generalized osteoarthritis of multiple sites: Adequate analgesia to continue Provide analgesics as needed based on pain scale Avoid overuse of opioids or narcotics in elderly 4. Benign essential HTN: Patient medications reconciled, To resume amlodipine 2.5 daily, carvedilol 25 mg twice daily, Lasix 20 mg daily, valsartan 320 mg daily, isosorbide mononitrate 120 mg daily I held hydralazine 100 mg 3 times daily, and to resume based on the patient blood pressure if required 5. Thoracic aortic aneurysm: Currently stable No chest pain Continue on carvedilol 25 mg twice daily and nitrate High-dose statins to continue If there is any chest pain, consider ultrasound aorta versus CT chest abdomen with contrast and escalation of care based on concerning results 6. Tricuspid regurgitation: Currently stable Echo 7. Displacement of lumbar disc with radiculopathy: Patient on tramadol 50 mg as needed daily for pain Rest of analgesics to be provided as needed Sertraline 50 mg at bedtime 8. Long-term use of high-risk medication: Adequate counseling has been provided for medication compliance and overuse PDMP PDMP Reviewed: Not Reviewed Attestations Medical Necessity Statement*: Dodie Jaffe's hospital stay will be less than 2 midnights for management of mild pneumonia and OT PT as well The son prefers to take her mother home since they have home health and his parents are well cared at home Time Spent in Patient Care: 16 - 35 minutes (>than 50% of time spent in counselling and/or direct pt care on unit). Other Attestations: Patient condition has been discussed at length with the patient/family, I have independently reviewed the chart labs imaging/diagnostics/EKG. the goals of care and code status with the patient/family/NOK/legal leather goods sales representative, and documented accordingly. The management has been done according to the current clinical condition with respect to patient goals of care and based on recommendations/guidelines. The patient/family has been informed about the current condition and further plan of care. Agreed with the plan of care and understood without any language barrier. Every effort was made to ensure accuracy of cabin worker. Any obvious errors or omissions should be clarified with the author of the document. Coding Level of Care Code 70905 Diagnoses Pneumonia involving right lung J18.9 Normocytic anemia D64.9 Generalized osteoarthritis of multiple sites M15.9 Benign essential HTN I10 Thoracic aortic aneurysm I71.20 Tricuspid regurgitation I07.1 Displacement of lumbar disc with radiculopathy M51.16 Long-term use of high-risk medication Z79.899
--- NOTE | 2025-08-24 15:58 | USCV_ITS ---
Dodie Jaffe Age: 89 Gender: F : 1935 Exam Date: 08/24/2025 17:59 Ordering Phys: Evan Pan MD Technologist: Jese Mckinley [place] [facility] [place]: increase shortness of breath history of tr BP: 147 / 54 HR: 68 Rhythm: Sinus Technical Quality: Adequate MEASUREMENTS (Male / Female) Normal Values 2D ECHO LV Diastolic Diameter PLAX 4.8 cm 4.2 - 5.9 / 3.9 - 5.3 cm IVS Diastolic Thickness 0.5 cm 0.6 - 1.0 / 0.6 - 0.9 cm IVS Systolic Thickness 1.1 cm LVPW Diastolic Thickness 0.6 cm 0.6 - 1.0 / 0.6 - 0.9 cm LVPW Systolic Thickness 1.5 cm LVOT Diameter 2.0 cm LV Ejection Fraction 2D Teich 77.0 % LV Ejection Fraction MOD 4C 71.7 % LV Ejection Fraction MOD 2C 63.6 % LV Ejection Fraction 2C AL 63.5 % LA Diameter 3.9 cm RA Systolic Volume 4C AL 51.1 ml RA Systolic Volume 4C MOD 50.7 ml LA Sys Volume AL 92.4 cm cubed LA Sys Volume Index AL 62.0 cm cubed/m squared Aorta at Sinotubular Diameter 3.2 cm IVC Diameter 2.3 cm M-MODE LA Ao Ratio MM 1.1 AV Cusp Separation MM 1.7 cm DOPPLER AV Peak Velocity 163.0 cm/s LVOT Peak Velocity 103.0 cm/s AV Area Cont Eq vti 2.5 cm squared AV Area Cont Eq pk 2.0 cm squared MV Peak Velocity 118.0 cm/s MV Area PHT 6.0 cm squared TV Peak Velocity 326.0 cm/s TR Peak Velocity 331.0 cm/s TR Peak Gradient 43.8 mmHg TR Mean Velocity 222.0 cm/s TR Mean Gradient 23.1 mmHg TR Velocity Time Integral 94.1 cm PV Peak Velocity 86.0 cm/s RV Ejection Time 0.3 s FINDINGS Left Ventricle Normal LV size and ejection fraction of 64%.no regional wall motion abnormalities. Right Ventricle Mildly increased right ventricular size. Normal right ventricular systolic function. Right Atrium Moderately increased right atrial size. Left Atrium Moderately increased left atrial size. IA Septum The interatrial septum appears to be bulging to the right side Mitral Valve Moderate mitral valve regurgitation. Aortic Valve Moderate aortic valve regurgitation. Tricuspid Valve Moderate eccentric tricuspid regurgitation, mild pulmonary embolism with estimated pulmonary artery peak systolic pressure of 47 mmHg Pulmonic Valve Mild-mod pulmonary valve regurgitation. Pericardium Trivial pericardial effusion. Aorta Ascending aorta measured 3.6 cm in diameter IVC Normal IVC dimension with >50% respiratory change of the inferior vena cava. CONCLUSIONS Normal LV size and ejection fraction of 64%.no regional wall motion abnormalities. Mildly increased right ventricular size. Normal right ventricular systolic function. Moderately increased right atrial size. Moderately increased left atrial size. The interatrial septum appears to be bulging to the right side. Moderate mitral valve regurgitation. Moderate aortic valve regurgitation. Moderate eccentric tricuspid regurgitation, mild pulmonary embolism with estimated pulmonary artery peak systolic pressure of 47 mmHg. Mild-mod pulmonary valve regurgitation. Mildly milated ascending aorta. Trivial pericardial effusion. Compared to the study from 01/25/2023, there is development of pulmonary hypertension Dr Katya Munoz MD FACC (Electronically Signed) Final Date: 25 August 2025 17:21 S
[2025-08-24 16:42] LABS: Troponin 5 6HR 28.67 ng/L (0-10); Troponin 5 6HR Delta -8.33 ng/L (0-12)
[2025-08-24] MEDS: magnesium sulfate premix 2 GM/50 ML PIGGYBACK IV (16:55)
[2025-08-25] VITALS (7 sets, daily range): BP systolic 126–150; BP diastolic 61–78; PULSE 72–90; RESP 16–18; TEMP 36.7–37.2; O2SAT 90–97
[2025-08-25 01:13] LABS: Hematocrit 23.0 % (36-47); Hemoglobin 7.70 g/dL (11.27-16.99); Mean Corpuscular HGB Conc 33.5 g/dL (30-55); Mean Corpuscular Hemoglobin 34.1 pg (27-33); Mean Corpuscular Volume 101.8 fl (85-98); Nucleated Red Blood Cells % 0 %; Platelet Count 128 10^3/cmm (157-399); Red Blood Count 2.26 10^6/uL (3.85-5.65); White Blood Count 8.67 10^3/uL (3.29-11.43)
[2025-08-25 01:27] LABS: Alanine Aminotransferase 12 U/L (0-33); Albumin Level 3.3 g/dL (3.5-5.2); Alkaline Phosphatase 41 U/L (35-105); Anion Gap 14.4 (5-19); Aspartate Amino Transferase 16 U/L (0-32); Blood Urea Nitrogen 16 mg/dL (8-23); Calcium 8.7 mg/dL (8.5-10.5); Carbon Dioxide 22 mmol/L (22-29); Chloride 99 mmol/L (98-107); Creatinine Clr Calc Pharmacy 39.6935; Globulin 2.6 g/dL (1.3-4.6); Glucose 107 mg/dL (65-115); Osmolality Calculated 276 mOsm/kg (285-295); Potassium 3.4 mmol/L (3.5-5.1); Sodium 132 mmol/L (136-145); Total Protein 5.9 g/dL (6.6-8.7)
[2025-08-25 01:46] LABS: Slide Review Slide Review Perform
[2025-08-25] MEDS: ATORVASTATIN 20 MG TABLET PO (04:11)
[2025-08-25] MEDS: LOSARTAN 100 MG TABLET PO (04:12)
[2025-08-25] MEDS: cefTRIAXone 1,000 mg SDV 1000 MG IVP (10:53)
[2025-08-25] MEDS: pantoprazole 40 mg SDV IVP (11:26)
[2025-08-25] MEDS: heparin 5,000 unit/mL INJ 1 mL 5000 UNIT SUBCUT (11:27)
--- NOTE | 2025-08-25 16:05 | P.PN_ITS ---
Subjective 2 Subjective: No new complaints today. Patient participating with OT at the time of assessment. Saturating 90% on 2 L Medications: Reviewed: Yes Vitals/I&O/Wt Last Vital Signs Temp 98.4 F 08/25/25 15:25 Pulse 89 08/25/25 15:25 Resp 18 08/25/25 15:25 BP 135/64 08/25/25 15:25 Pulse Ox 90 08/25/25 15:25 O2 Del Method Nasal Cannula 08/25/25 15:25 O2 Flow Rate 2 08/25/25 15:25 08/25/25 08/25/25 08/25/25 06:59 14:59 22:59 Intake Total 1370 / 1370 Balance 1370 / 1370 Weight last 48 hrs Weight 50.122 kg Weight 49.804 kg Weight 52.163 kg Data 08/25/25 01:00 08/25/25 01:00 Micro: Microbiology 08/24/25 11:10 Blood Culture - Preliminary Blood NEGATIVE TO DATE 08/24/25 11:09 Blood Culture - Preliminary Blood NEGATIVE TO DATE 08/24/25 09:48 Urine Culture - Preliminary Urine,Clean Catch Gram Negative Rods A&P Assessment and plan 1. Pneumonia involving right lung: Continue ceftriaxone and azithromycin Oxygen per protocol Chest physiotherapy Respiratory viral panel Echo repeat since the patient had TR and could be attributing to her shortness of breath OT PT evaluation for mobility Incentive spirometry 2. Normocytic anemia: Currently stable, continue to monitor No obvious source of bleeding 3. Generalized osteoarthritis of multiple sites: Adequate analgesia to continue Provide analgesics as needed based on pain scale Avoid overuse of opioids or narcotics in elderly 4. Benign essential HTN: Patient medications reconciled, To resume amlodipine 2.5 daily, carvedilol 25 mg twice daily, Lasix 20 mg daily, valsartan 320 mg daily, isosorbide mononitrate 120 mg daily I held hydralazine 100 mg 3 times daily, and to resume based on the patient blood pressure if required 5. Thoracic aortic aneurysm without rupture: Currently stable No chest pain Continue on carvedilol 25 mg twice daily and nitrate High-dose statins to continue If there is any chest pain, consider ultrasound aorta versus CT chest abdomen with contrast and escalation of care based on concerning results 6. Nonrheumatic tricuspid valve regurgitation: Currently stable Echo 7. Displacement of lumbar disc with radiculopathy: Patient on tramadol 50 mg as needed daily for pain Rest of analgesics to be provided as needed Sertraline 50 mg at bedtime 8. Long-term use of high-risk medication: Adequate counseling has been provided for medication compliance and overuse Plan: 08/25/2025 Continue ceftriaxone and azithromycin for pneumonia. Urine culture growing gram-negative rods. Awaiting further identification. Anemia noted with hemoglobin down to 7.7 today. Check iron TIBC ferritin B12 and folate levels and fecal occult blood testing. Patient has a history of C. difficile. Currently no diarrhea noted during hospital stay. PDMP PDMP Reviewed: Not Reviewed Attestations 2 Medical Necessity Statement*: anemia, hb drop 7.7, continue iv abx, awaiting urine cx Coding Level of Care Code Acute Code for Chg Fwd Diagnoses Pneumonia involving right lung J18.9 Lung location: upper lobe of lung Pneumonia type: due to unspecified organism Normocytic anemia D64.9 Generalized osteoarthritis of multiple sites M15.9 Benign essential HTN I10 Thoracic aortic aneurysm without rupture I71.2 Presence of rupture: without rupture Nonrheumatic tricuspid valve regurgitation I36.1 Cardiac valve disease etiology: nonrheumatic Displacement of lumbar disc with radiculopathy M51.16 Long-term use of high-risk medication Z79.899
[2025-08-25 16:58] LABS: Ferritin 298 ng/mL (15-150); Iron 17 ug/dL (37-145); Total Iron Binding Capacity 162 mcg/dl; Unsaturated Iron Binding 145 ug/dL (112-347)
[2025-08-25] MEDS: lactobacillus 1 Tablet 1 TAB PO (17:05)
[2025-08-25 17:13] LABS: Vitamin B12 500 pg/mL (232-1245)
[2025-08-26] VITALS (8 sets, daily range): BP systolic 118–161; BP diastolic 61–82; PULSE 67–91; RESP 16–24; TEMP 36.4–36.9; O2SAT 92–96
[2025-08-26] MEDS: heparin 5,000 unit/mL INJ 1 mL 5000 UNIT SUBCUT ×2 (00:18→11:34)
[2025-08-26] MEDS: ATORVASTATIN 20 MG TABLET PO (04:29)
[2025-08-26] MEDS: LOSARTAN 100 MG TABLET PO (04:29)
[2025-08-26] MEDS: lactobacillus 1 Tablet 1 TAB PO ×2 (04:29→17:14)
[2025-08-26 06:04] LABS: Hematocrit 21.7 % (36-47); Hemoglobin 7.40 g/dL (11.27-16.99); Mean Corpuscular HGB Conc 34.1 g/dL (30-55); Mean Corpuscular Hemoglobin 33.9 pg (27-33); Mean Corpuscular Volume 99.5 fl (85-98); Nucleated Red Blood Cells % 0 %; Platelet Count 153 10^3/cmm (157-399); Red Blood Count 2.18 10^6/uL (3.85-5.65); White Blood Count 7.16 10^3/uL (3.29-11.43)
[2025-08-26 06:24] LABS: Alanine Aminotransferase 61 U/L (0-33); Albumin Level 3.4 g/dL (3.5-5.2); Alkaline Phosphatase 71 U/L (35-105); Anion Gap 16.0 (5-19); Aspartate Amino Transferase 86 U/L (0-32); Blood Urea Nitrogen 15 mg/dL (8-23); Calcium 8.6 mg/dL (8.5-10.5); Carbon Dioxide 22 mmol/L (22-29); Chloride 99 mmol/L (98-107); Creatinine Clr Calc Pharmacy 39.7893; Globulin 3.0 g/dL (1.3-4.6); Glucose 125 mg/dL (65-115); Osmolality Calculated 280 mOsm/kg (285-295); Potassium 3.0 mmol/L (3.5-5.1); Sodium 134 mmol/L (136-145); Total Protein 6.4 g/dL (6.6-8.7)
--- NOTE | 2025-08-26 09:19 | PC.CHAP ---
Pastoral Care Encounter/Spiritual Assessment Type of Contact [] Declined hyster machine operator visit [] Patient/Family/Request visit [] Outpatient visit [] Follow-up visit [] Physician referral [] Code/Alert [] Routine visit [] Staff referral [] Actively dying [] Patient sleeping [] Family support [] [] Out of room [] Palliative care [] [] Receiving care in room [] Pre-surgical visit [] Trauma [] Long length of stay [] ICU visit [x] Other:Contact precautions. No visit. Relational/Emotional Strength [] Patient feels connected with others/family/visitors/staff [] Distress [] Loneliness/isolation [] Abandonment Spirituality of Patient [] Person of Nelli [] Attends Jain of their Nelli [] Believes in Prayer [] Reads Bible or Synagogue materials [] There are Spiritual issues to be addressed Fisher Pot Interventions [] Prayer [] Active listening [] Non-anxious presence [] Spiritual/emotional support [] Crisis/trauma care [] Spiritual counseling [] Bereavement support [] Provided bereavement packet [] Provided Bible/devotional materials [] Provided toy/stuffed animal, coloring book to patient or family member [] Provided Communion [] Anointing/Liberal [] Salvation [] Completed spiritual assessment [] Other: Impact on Illness or Injury [] Angry [] Fearful [] Anxious [] Often cries [] Exhaustion [] Unable to work [] Unable to attend methodist [] Unable to walk/stand [] Unable to read [] Unable to drive [] Unable to eat/drink [] Unable to sleep [] Unable to be with family [] Patient intubated [] Other: Summary Time spent with patient
[2025-08-26] MEDS: cefTRIAXone 1,000 mg SDV 1000 MG IVP (11:34)
[2025-08-26] MEDS: pantoprazole 40 mg SDV IVP (11:34)
[2025-08-26 13:15] LABS: Coronavirus 229E,HKU1,NL63,OC4 Not Detected (NOT DETECT); Parainfluenza Virus Type 1 Not Detected (NOT DETECT); Parainfluenza Virus Type 2 Not Detected (NOT DETECT); Parainfluenza Virus Type 3 Not Detected (NOT DETECT); Parainfluenza Virus Type 4 Not Detected (NOT DETECT); SARS-COV-2 Not Detected (NOT DETECT)
--- NOTE | 2025-08-26 14:03 | P.PN_ITS ---
Subjective 2 Subjective: Currently on 2 L/min supplemental O2. Interval development of bilateral wheezing worse right lower lobe. Medications: Reviewed: Yes Vitals/I&O/Wt Last Vital Signs Temp 97.7 F 08/26/25 11:35 Pulse 67 08/26/25 11:35 Resp 16 08/26/25 11:35 BP 134/70 08/26/25 11:35 Pulse Ox 95 08/26/25 11:35 O2 Del Method Nasal Cannula 08/26/25 11:35 O2 Flow Rate 2 08/26/25 08:00 08/25/25 08/26/25 08/26/25 22:59 06:59 14:59 Intake Total 120 / 1490 970 / 970 Balance 120 / 1490 970 / 970 Weight last 48 hrs Weight 50.122 kg Weight 49.804 kg Physical Exam 2 Narrative: General: No acute distress, AO x3 HEENT: PERRLA, pupils bilaterally equal and reactive, pallors not present Chest: Normal vesicular breath sounds, no added sounds, equal good air entry bilaterally CVS: S1-S2 regular, no murmurs, no tachycardia, no gallops, no rubs Abdomen: Soft, nontender, no organomegaly, bowel sounds present Neuro: No focal deficits, no facial deformity, AO x3, power 5/5 in all limbs Data 08/26/25 05:18 08/26/25 05:18 Micro: Microbiology 08/24/25 09:48 Urine Culture - Preliminary Urine,Clean Catch Gram Negative Rods Gram Negative Rods#2 08/25/25 18:30 Occult Blood (FIT) - Final Stool Routine Collection 08/24/25 11:10 Blood Culture - Preliminary Blood NEGATIVE TO DATE 08/24/25 11:09 Blood Culture - Preliminary Blood NEGATIVE TO DATE A&P Assessment and plan 1. Pneumonia involving right lung: Continue ceftriaxone and azithromycin Oxygen per protocol Chest physiotherapy Respiratory viral panel Echo repeat since the patient had TR and could be attributing to her shortness of breath OT PT evaluation for mobility Incentive spirometry 2. Normocytic anemia: Currently stable, continue to monitor No obvious source of bleeding 3. Generalized osteoarthritis of multiple sites: Adequate analgesia to continue Provide analgesics as needed based on pain scale Avoid overuse of opioids or narcotics in elderly 4. Benign essential HTN: Patient medications reconciled, To resume amlodipine 2.5 daily, carvedilol 25 mg twice daily, Lasix 20 mg daily, valsartan 320 mg daily, isosorbide mononitrate 120 mg daily I held hydralazine 100 mg 3 times daily, and to resume based on the patient blood pressure if required 5. Thoracic aortic aneurysm without rupture: Currently stable No chest pain Continue on carvedilol 25 mg twice daily and nitrate High-dose statins to continue If there is any chest pain, consider ultrasound aorta versus CT chest abdomen with contrast and escalation of care based on concerning results 6. Nonrheumatic tricuspid valve regurgitation: Currently stable Echo 7. Displacement of lumbar disc with radiculopathy: Patient on tramadol 50 mg as needed daily for pain Rest of analgesics to be provided as needed Sertraline 50 mg at bedtime 8. Long-term use of high-risk medication: Adequate counseling has been provided for medication compliance and overuse 9. Pulmonary hypertension: Plan: 08/25/2025 Continue ceftriaxone and azithromycin for pneumonia. Urine culture growing gram-negative rods. Awaiting further identification. Anemia noted with hemoglobin down to 7.7 today. Check iron TIBC ferritin B12 and folate levels and fecal occult blood testing. Patient has a history of C. difficile. Currently no diarrhea noted during hospital stay. 08/26/2025 Continue ceftriaxone and azithromycin. Patient with development of global wheezing today. Likely acute bronchitis precipitated by pneumonia. Add DuoNeb and elation every 6 hours. Echocardiogram available showing LVEF of 64%. Mildly increased right ventricular size with normal right ventricular systolic function. Moderately increased right atrial size. Interatrial septum bulging to the right side, moderate eccentric tricuspid regurgitation, mild pulmonary hypertension with PASP of 47 mmHg. Compared to January 2023 there has been an interval development of pulmonary hypertension. Continue Lasix 20 mg p.o. daily. Given patient's new onset hypoxia along with pulmonary hypertension, possibility of PE cannot be excluded at this time. Check D-dimer to screen for PE. If elevated may need to follow-up CTA of the chest. Her chart notes and allergy to iodine contrast in the past, however she appears to have had a CTA of the chest in 2022. Discussed nature of allergy with son who reports he will confirm the details with his family and get back with us. PDMP PDMP Reviewed: Not Reviewed Attestations 2 Medical Necessity Statement*: Continue antibiotics, pending D-dimer, interval development of wheezing, add scheduled nebulization, monitor for improvement. Coding Level of Care Code Acute Code for Chg Fwd Diagnoses Pneumonia involving right lung J18.9 Lung location: upper lobe of lung Pneumonia type: due to unspecified organism Normocytic anemia D64.9 Generalized osteoarthritis of multiple sites M15.9 Benign essential HTN I10 Thoracic aortic aneurysm without rupture I71.2 Presence of rupture: without rupture Nonrheumatic tricuspid valve regurgitation I36.1 Cardiac valve disease etiology: nonrheumatic Displacement of lumbar disc with radiculopathy M51.16 Long-term use of high-risk medication Z79.899 Pulmonary hypertension I27.20
[2025-08-26] MEDS: ferrous sulfate EC 325 mg Tablet PO (17:14)
--- NOTE | 2025-08-26 17:22 | CTR_ITS ---
PROCEDURE INFORMATION: Exam: CTA Chest With Contrast Exam date and time: 08/26/2025 10:47 PM Age: 89 years old Clinical indication: Abnormal findings; Abnormal diagnostic tests; Elevated d-dimer; Additional info: Elevated dimer hypoxia TECHNIQUE: Imaging protocol: Computed tomographic angiography of the chest with contrast. Exam focused on the arteries. 3D rendering (Not supervised by radiologist): MIP and/or 3D reconstructed images were created by the technologist. Radiation optimization: All CT scans at this facility use at least one of these dose optimization techniques: automated exposure control; mA and/or kV adjustment per patient size (includes targeted exams where dose is matched to clinical indication); or iterative reconstruction. Contrast material: OMNI 350; Contrast volume: 100 ml; Contrast route: INTRAVENOUS (IV); COMPARISON: CT angio chest [id number] 01/18/2023 4:09 PM RADIATION DOSE METRICS: Total DLP (mGy-cm): 231.98 FINDINGS: Pulmonary arteries: No pulmonary embolism. Aorta: Atherosclerotic changes of the aorta. Lungs: Patchy bilateral airspace consolidations, consistent with multilobar pneumonia. Pleural spaces: Moderate right and small left pleural effusions. Heart: Unremarkable. No cardiomegaly. No pericardial effusion. Lymph nodes: Unremarkable. No enlarged lymph nodes. Spleen: Multiple calcified splenic granulomas. Bones/joints: Degenerative changes of the spine. Cement kyphoplasty at L1. Posterior fusion at L3 extending distal to the [id number]. Soft tissues: Unremarkable. CT/CT angio chest PE protcl [id number] IMPRESSION: 1. No pulmonary embolism. 2. Moderate right and small left pleural effusions. 3. Patchy bilateral airspace consolidations, consistent with multilobar pneumonia. .
[2025-08-26] MEDS: diphenhydrAMINE 50 mg/mL SDV 1mL IVP (22:34)
[2025-08-26] MEDS: methylPREDNISolone sod succ 40 mg/mL INJ IVP (22:34)
[2025-08-26] MEDS: iohexol 350 mg/mL 500 mL Btl (per mL) IV (22:58)
[2025-08-27] VITALS: BP 168/87; PULSE 89; RESP 17; TEMP 36.9; O2SAT 91
[2025-08-27] MEDS: heparin 5,000 unit/mL INJ 1 mL 5000 UNIT SUBCUT (00:09)
[2025-08-27 03:33] VITALS: BP 170/77; PULSE 90; RESP 16; TEMP 36.9; O2SAT 95
[2025-08-27] MEDS: LOSARTAN 100 MG TABLET PO (05:00)
[2025-08-27] MEDS: ATORVASTATIN 20 MG TABLET PO (05:00)
[2025-08-27] MEDS: lactobacillus 1 Tablet 1 TAB PO (05:00)
[2025-08-27 07:53] VITALS: PULSE 92; RESP 16; O2SAT 96
[2025-08-27 08:15] VITALS: BP 137/89; PULSE 76; RESP 16; TEMP 36.3; O2SAT 96
[2025-08-27] MEDS: ferrous sulfate EC 325 mg Tablet PO (08:34)
[2025-08-27 09:08] VITALS: O2SAT 85; O2SAT 94
[2025-08-27 10:04] LABS: Hematocrit 22.2 % (36-47); Hemoglobin 7.50 g/dL (11.27-16.99); Mean Corpuscular HGB Conc 33.8 g/dL (30-55); Mean Corpuscular Hemoglobin 34.2 pg (27-33); Mean Corpuscular Volume 101.4 fl (85-98); Nucleated Red Blood Cells % 0 %; Platelet Count 169 10^3/cmm (157-399); Red Blood Count 2.19 10^6/uL (3.85-5.65); White Blood Count 4.35 10^3/uL (3.29-11.43)
[2025-08-27 10:22] LABS: Alanine Aminotransferase 81 U/L (0-33); Albumin Level 3.2 g/dL (3.5-5.2); Alkaline Phosphatase 77 U/L (35-105); Blood Urea Nitrogen 15 mg/dL (8-23); Calcium 8.6 mg/dL (8.5-10.5); Carbon Dioxide 23 mmol/L (22-29); Chloride 102 mmol/L (98-107); Creatinine Clr Calc Pharmacy 39.7721; Globulin 3.3 g/dL (1.3-4.6); Glucose 168 mg/dL (65-115); Osmolality Calculated 291 mOsm/kg (285-295); Sodium 138 mmol/L (136-145); Total Protein 6.5 g/dL (6.6-8.7)
[2025-08-27 10:25] LABS: Anion Gap 16.8 (5-19); Potassium 3.8 mmol/L (3.5-5.1)
[2025-08-27 10:26] LABS: Aspartate Amino Transferase 84 U/L (0-32)
[2025-08-27 10:36] LABS: Slide Review Slide Review Perform
[2025-08-27] MEDS: pantoprazole 40 mg SDV IVP (12:01)
[2025-08-27] MEDS: cefTRIAXone 1,000 mg SDV 1000 MG IVP (12:01)
[2025-08-27 12:16] VITALS: BP 149/63; PULSE 85; RESP 17; TEMP 36.6; O2SAT 94
--- NOTE | 2025-08-27 12:23 | PC.NURSE ---
pt changed mind on pharmacy, called rx in to [facility]. cancelled at [facility], later [facility]
[2025-08-27 12:24] LABS: MRSA PCR OZH (swab) NOT DETECTED (Not Detecte)
--- NOTE | 2025-08-27 14:43 | PM.DCS ---
Discharge Providers Date of Admission: 08/25/25 16:37 Date of Discharge: August 27, 2025 Attending Provider at Admission: Evan Pan MD Attending Provider at Discharge: No Rodriguez MD Primary Care Provider: Yinka Ackerman MD Diagnoses at Discharge Discharge Diagnosis 1. Pneumonia involving right lun. Normocytic anemia: 3. Generalized osteoarthritis of multiple sites: 4. Benign essential HTN: 5. Thoracic aortic aneurysm without rupture: 6. Nonrheumatic tricuspid valve regurgitation: 7. Displacement of lumbar disc with radiculopathy: 8. Long-term use of high-risk medication: 9. Pulmonary hypertension: Reason for Visit Reason for Visit: weakness; fall Hospital Course Hospital Course 89 year old female with multiple comorbidities including HTN, tricuspid regurgitation, thoracic aortic aneurysm, dyslipidemia, osteoporosis, history of CVA, chronic back pain, chronic lower extremity neuropathy, admitted via the emergency room due to generalized weakness and having fallen at home. She was found to have a pneumonia for which she received IV antibiotics with ceftriaxone and azithromycin. This has been transition to Augmentin at the time of discharge. Patient was also found to have UTI with Klebsiella pneumonia and E. coli. Sensitivity reported to fluoroquinolones therefore added levofloxacin at the time of discharge. CT of the chest was performed due to hypoxia upon admission. No PE was found. Redemonstrated pneumonia as was also seen on chest x-ray. Patient is needing oxygen at the time of discharge and this has been arranged. Patient likely had acute bronchitis triggered by pneumonia has significant wheezing was noted on 08/26/2025. She received nebulization with DuoNeb during hospital stay and has been discharged with Advair inhaler for home use.Here echocardiogram showed evidence of pulmonary hypertension, worsened compared to January 2023. Continued on Lasix at the time of discharge for this reason. Physical Exam Narrative: General: No acute distress, AO x3 HEENT: PERRLA, pupils bilaterally equal and reactive, pallors not present Chest: Normal vesicular breath sounds, no added sounds, equal good air entry bilaterally CVS: S1-S2 regular, no murmurs, no tachycardia, no gallops, no rubs Abdomen: Soft, nontender, no organomegaly, bowel sounds present Neuro: No focal deficits, no facial deformity, AO x3, power 5/5 in all limbs Discharge Data Studies Completed and Pending Completed Studies During Hospitalization Category Date Time Status CT cervical spin wo con* [id number] Urgent Cat Scan 08/24/25 09:[address] head wo con* [id number] Urgent Cat Scan 08/24/25 09:20 Completed CTA chest [CT angio chest PE protcl [id number]] Routine Cat Scan 08/26/25 17:22 Completed XR chest 1V portable [id number] Urgent Exams 08/24/25 09:20 Completed CV. echo complete* [id number] Routine Ultrasound 08/24/25 15:58 Completed Pending at discharge Category Date Time Status Blood Culture Stat Lab 08/24/25 11:10 Results Radiology Impressions Cervical Spine CT 08/24/25 09:20 IMPRESSION: No acute bony abnormality. Degenerative changes of the cervical spine. If symptoms persist, consider further evaluation with MRI, if there are no contraindications to obtaining a MRI scan. Chest X-Ray 08/24/25 09:20 IMPRESSION: Patchy alveolar infiltrates are noted in the lateral right upper lung and right lower lung. Findings may be infectious/inflammatory in nature. Recommend clinical correlation and follow-up imaging as clinically warranted. Head CT 08/24/25 09:20 IMPRESSION: No acute intracranial abnormality. If symptoms persist, consider further evaluation with MRI, if there are no contraindications to obtaining a MRI scan. Chest CTA 08/26/25 17:22 IMPRESSION: 1. No pulmonary embolism. 2. Moderate right and small left pleural effusions. 3. Patchy bilateral airspace consolidations, consistent with multilobar pneumonia. . Laboratory Results WBC 4.35 10^3/uL (3.29-11.43) 08/27/25 09:45 RBC 2.19 10^6/uL (3.85-5.65) L 08/27/25 09:45 Hgb 7.50 g/dL (11.27-16.99) L 08/27/25 09:45 Hgb Cancelled 08/27/25 09:45 Hct 22.2 % (36-47) L 08/27/25 09:45 Hct Cancelled 08/27/25 09:45 MCV 101.4 fl (85-98) H 08/27/25 09:45 MCH 34.2 pg (27-33) H 08/27/25 09:45 MCHC 33.8 g/dL (30-55) 08/27/25 09:45 RDW 12.5 % (12.1-15.1) 08/27/25 09:45 Plt Count 169 10^3/cmm (157-399) 08/27/25 09:45 MPV 10.3 fL (7.4-10.4) 08/27/25 09:45 Neut % (Auto) 77.8 % 08/27/25 09:45 Lymph % (Auto) 17.9 % 08/27/25 09:45 [place] % (Auto) 3.0 % 08/27/25 09:45 Eos % (Auto) 0.0 % 08/27/25 09:45 Baso % (Auto) 0.2 % 08/27/25 09:45 Neut # (Auto) 3.38 10^3/uL (1.8-7.7) 08/27/25 09:45 Lymph # (Auto) 0.8 10^3/uL (0.8-4.8) 08/27/25 09:45 [place] # (Auto) 0.1 10^3/uL (0.2-0.9) L 08/27/25 09:45 Eos # (Auto) 0.0 10^3/uL (0.0-0.8) 08/27/25 09:45 Baso # (Auto) 0.0 10^3/uL (0.0-0.1) 08/27/25 09:45 Nucleated RBC % (auto) 0 % 08/27/25 09:45 Nucleated RBCs # 0.0 /100WBC 08/27/25 09:45 D-Dimer 3.93 ug/mLFEU (0-0.59) H 08/26/25 12:53 Sodium 138 mmol/L (136-145) 08/27/25 09:45 Potassium 3.8 mmol/L (3.5-5.1) 08/27/25 09:45 Chloride 102 mmol/L (98-107) 08/27/25 09:45 Carbon Dioxide 23 mmol/L (22-29) 08/27/25 09:45 Anion Gap 16.8 (5-19) 08/27/25 09:45 BUN 15 mg/dL (8-23) 08/27/25 09:45 Creatinine 0.6 mg/dL (0.5-0.9) 08/27/25 09:45 GFR Calculation Not Reportable 08/27/25 09:45 Glucose 168 mg/dL (65-115) H 08/27/25 09:45 Calculated Osmolality 291 mOsm/kg (285-295) 08/27/25 09:45 Lactic Acid 1.4 mmol/L (0.5-2.2) 08/24/25 09:20 Calcium 8.6 mg/dL (8.5-10.5) 08/27/25 09:45 Phosphorus 2.4 mg/dL (2.5-4.5) L 08/24/25 11:09 Magnesium 1.6 mg/dL (1.7-2.3) L 08/24/25 11:09 Iron 17 ug/dL (37-145) L 08/25/25 01:00 TIBC 162 mcg/dl 08/25/25 01:00 % Saturation 10.4 % (20-50) L 08/25/25 01:00 Unsat Iron Binding 145 ug/dL (112-347) 08/25/25 01:00 Ferritin 298 ng/mL (15-150) H 08/25/25 01:00 Total Bilirubin 0.4 mg/dL (0.15-1.2) 08/27/25 09:45 AST 84 U/L (0-32) H 08/27/25 09:45 ALT 81 U/L (0-33) H 08/27/25 09:45 Alkaline Phosphatase 77 U/L (35-105) 08/27/25 09:45 Creatine Kinase 56 U/L (26-192) 08/24/25 09:20 Troponin T Baseline 37 ng/L (0-10) H 08/24/25 09:20 Troponin T 120 Minute 34.25 ng/L (0-10) H 08/24/25 11:09 Delta Troponin T -2.75 ABS# (0-10) L 08/24/25 11:09 Troponin T Hi Sens 6Hr 28.67 ng/L (0-10) H 08/24/25 16:03 Troponin T Hi Sens 6Hr Delta -8.33 ng/L (0-12) L 08/24/25 16:03 NT-Pro-B Natriuret Pep 4921 pg/mL (0-450) H 08/24/25 09:20 Total Protein 6.5 g/dL (6.6-8.7) L 08/27/25 09:45 Albumin 3.2 g/dL (3.5-5.2) L 08/27/25 09:45 Globulin 3.3 g/dL (1.3-4.6) 08/27/25 09:45 Vitamin B12 500 pg/mL (232-1245) 08/25/25 01:00 Folate 16.9 ng/mL (4.8-37.3) 08/25/25 01:00 Procalcitonin 0.26 ng/mL (0-0.5) 08/24/25 09:20 TSH 0.80 uIU/mL (0.27-4.20) 08/24/25 11:09 Urine Color Yellow (Yellow) 08/24/25 09:48 Urine Appearance Turbid (CLEAR) A 08/24/25 09:48 Urine pH 6.5 (5-7) 08/24/25 09:48 Ur Specific [place] 1.015 (1.005-1.030) 08/24/25 09:48 Urine Protein 2+ (Negative) A 08/24/25 09:48 Urine Glucose (UA) Negative (Normal) 08/24/25 09:48 Urine Ketones Trace (Negative) 08/24/25 09:48 Urine Blood Negative (Negative) 08/24/25 09:48 Urine Nitrate Negative (Negative) 08/24/25 09:48 Urine Bilirubin Negative (Negative) 08/24/25 09:48 Urine Urobilinogen 1.0 mg/dL (Negative) 08/24/25 09:48 Ur Leukocyte Esterase Negative (Negative) 08/24/25 09:48 Urine RBC 21-50 /hpf (0-2) H 08/24/25 09:48 Urine WBC 6-10 /hpf (0-5) 08/24/25 09:48 Ur Squamous Epith Cells 0-5 /hpf (0-5) 08/24/25 09:48 Amorphous Sediment 1+ /hpf 08/24/25 09:48 Urine Bacteria 4+ /hpf (NONE) H 08/24/25 09:48 Hyaline Casts 1.65 /lpf 08/24/25 09:48 Nasal MRSA (PCR) Not detected (Not Detecte) 08/27/25 11:00 Adenovirus (PCR) Not detected (NOT DETECT) 08/26/25 10:40 C. pneumoniae DNA (PCR) Not detected (NOT DETECT) 08/26/25 10:40 Coronavirus 229E (PCR) Not detected (NOT DETECT) 08/26/25 10:40 Human Metapneumovir PCR Not detected (NOT DETECT) 08/26/25 10:40 Influenza A (H1) PCR Not detected (NOT DETECT) 08/26/25 10:40 Influenza A (PCR) Negative (Negative) 08/24/25 09:33 Influ A (H1/09) PCR Not detected (NOT DETECT) 08/26/25 10:40 Influenza A (H3) PCR Not detected (NOT DETECT) 08/26/25 10:40 Influenza Type A (PCR) Not detected (NOT DETECT) 08/26/25 10:40 Influenza Type B (PCR) Not detected (NOT DETECT) 08/26/25 10:40 M. pneumoniae (PCR) Not detected (NOT DETECT) 08/26/25 10:40 Parainfluenza 1 (PCR) Not detected (NOT DETECT) 08/26/25 10:40 Parainfluenza 2 (PCR) Not detected (NOT DETECT) 08/26/25 10:40 Parainfluenza 3 (PCR) Not detected (NOT DETECT) 08/26/25 10:40 Parainfluenza 4 (PCR) Not detected (NOT DETECT) 08/26/25 10:40 RSV (PCR) Negative (Negative) 08/24/25 09:33 RSV Type A (PCR) Not detected (NOT DETECT) 08/26/25 10:40 RSV Type B (PCR) Not detected (NOT DETECT) 08/26/25 10:40 Entero/Rhino (PCR) Not detected (NOT DETECT) 08/26/25 10:40 SARS-CoV-2 (PCR) Not detected (NOT DETECT) 08/26/25 10:40 Vitals Last Vital Signs Temp 97.9 F 08/27/25 12:16 Pulse 85 08/27/25 12:16 Resp 17 08/27/25 12:16 BP 149/63 08/27/25 12:16 Pulse Ox 94 08/27/25 12:16 O2 Del Method Nasal Cannula 08/27/25 12:16 O2 Flow Rate 2 08/27/25 09:08 Discharge Plan Discharge Patient Disposition: Home Condition: Stable Prescriptions: New ferrous sulfate 325 mg (65 mg iron) Tablet,Delayed Release (Dr/Ec) 325 mg PO BIDWM 90 Days Qty: 90 0RF levofloxacin 750 mg tablet 750 mg PO DAILY 3 Days Qty: 3 0RF amoxicillin-pot clavulanate 875-125 mg tablet 1 tab PO BID 3 Days Qty: 6 0RF fluticasone propion-salmeterol [Advair Diskus] 500-50 mcg/dose blister with device 1 inh inhalation BID 10 Days Qty: 60 0RF Continued amlodipine 2.5 mg tablet 2.5 mg PO DAILY 30 Days Qty: 30 5RF nitroglycerin 0.4 mg tablet, sublingual See Rx Instructions .ROUTE .COMPLEX Qty: 30 0RF Dose Instruction: TAKE 1 TABLET UNDER THE TONGUE q5m NEEDED FOR FOR CHEST PAIN FOR 30 DAYS Rx Instructions: TAKE 1 TABLET UNDER THE TONGUE q5m NEEDED FOR FOR CHEST PAIN FOR 30 DAYS pravastatin 80 mg tablet 80 mg PO DAILY Qty: 90 3RF valsartan 320 mg tablet 320 mg PO QAM Qty: 90 3RF hydralazine 50 mg tablet 100 mg PO TID Qty: 540 3RF duloxetine 20 mg capsule,delayed release(DR/EC) 20 mg PO DAILY acetaminophen 500 mg capsule 1,000 mg PO Q6H PRN (Reason: Pain) meloxicam 7.5 mg tablet 7.5 mg PO DAILY tramadol 50 mg tablet 50 mg PO DAILY PRN (Reason: Pain) vitamin B complex Tablet 1 tab PO DAILY sertraline 50 mg tablet 50 mg PO BEDTIME carvedilol 25 mg tablet 25 mg PO BID potassium chloride 8 mEq capsule, extended release 8 meq PO DAILY isosorbide mononitrate 120 mg tablet extended release 24 hr 120 mg PO DAILY furosemide 20 mg tablet 20 mg PO DAILY Discharge Order = DC NOW: Discharge Order (Routine); Ordered 08/27/25 Ordered By: oN Rodriguez Other Ambulatory Orders: DME: Oxygen (Order) Location: None Selected Ordered By: No Rodriguez Referrals: Yinka Ackerman MD [Primary Care Provider, Family Practice] - 09/03/25 11:30 am Referral Note: hospital discharge follow up for pneumonia Patient Instructions: Amoxicillin/Clavulanate Potassium (By mouth), Levofloxacin (By mouth) (Levaquin, Levaquin Leva-dionisio), Fluticasone/Salmeterol (By breathing), Opioid Safety, Pneumonia Stoplight, Patient Portal & Keli Instructions Discharge Attestations Time Spent in Discharge Care*: greater than 30 min Quality Metrics Clinical Quality Measures [ No reported AMI, CVA or VTE this stay] Coding Level of Care Code Acute Code for Chg Fwd Diagnoses Pneumonia involving right lung J18.9 Lung location: upper lobe of lung Pneumonia type: due to unspecified organism Normocytic anemia D64.9 Generalized osteoarthritis of multiple sites M15.9 Benign essential HTN I10 Thoracic aortic aneurysm without rupture I71.2 Presence of rupture: without rupture Nonrheumatic tricuspid valve regurgitation I36.1 Cardiac valve disease etiology: nonrheumatic Displacement of lumbar disc with radiculopathy M51.16 Long-term use of high-risk medication Z79.899 Pulmonary hypertension I27.20
== END 2025-08-27 14:00 | disposition home health service (06) | DRG 194 ==
LOC: ER 09:22 → ER IP 11:07 → MEDSURG 18:56
PROVIDERS: Admitting Provider Student in an Organized Health Care Education/Training Program; Emergency Provider Physician Assistant; PCP Family Medicine; Visit Provider Student in an Organized Health Care Education/Training Program
DX: J18.9 Pneumonia, unspecified organism (principal); N39.0 Urinary tract infection, site not specified; D64.9 Anemia, unspecified; M15.9 Polyosteoarthritis, unspecified; I10 Essential (primary) hypertension; I71.60 Thoracoabdominal aortic aneurysm, without rupture, unspecified; I36.1 Nonrheumatic tricuspid (valve) insufficiency; M51.16 Intervertebral disc disorders with radiculopathy, lumbar region; I27.20 Pulmonary hypertension, unspecified; M81.0 Age-related osteoporosis without current pathological fracture; G89.29 Other chronic pain; B96.1 Klebsiella pneumoniae [K. pneumoniae] as the cause of diseases classified elsewhere; B96.20 Unspecified Escherichia coli [E. coli] as the cause of diseases classified elsewhere; R19.5 Other fecal abnormalities; M96.1 Postlaminectomy syndrome, not elsewhere classified; M43.07 Spondylolysis, lumbosacral region; N32.81 Overactive bladder; K58.9 Irritable bowel syndrome, unspecified; M79.7 Fibromyalgia; E83.42 Hypomagnesemia; J20.9 Acute bronchitis, unspecified; R09.02 Hypoxemia; Z98.1 Arthrodesis status; Z79.899 Other long term (current) drug therapy; Z86.73 Personal history of transient ischemic attack (TIA), and cerebral infarction without residual deficits; Z87.891 Personal history of nicotine dependence
CPT/HCPCS: 36415; 70450; 71045; 71275; 72125; 80053; 81001; 82274; 82550; 82607; 82728; 82746; 83540; 83550; 83605; 83735; 83880; 84100; 84145; 84443; 84484; 85025; 85378; 87040; 87077; 87086; 87186; 87486; 87581; 87633; 87637; 93005; 93306; 94640; 94760; 96365; 96372; 96375; 97116; 97161; 97165; 99285; G0378; J0456; J0696; J1200; J1644; J2470; J2919; J3475; J7030; J7050; J9999